=== PATIENT | female | born 1985 | race Caucasian/White ===

== ENCOUNTER 2017-11-24 15:29 | Emergency (ER) | payer SELFPAY ==
[~2017-11-24] VITALS: Ht 157.5 cm; Wt 143.0 kg
[~2017-11-24 15:29] MED LIST: PROC25R PR; Z.0.NO CURRENT MEDS
[2017-11-24 15:36] VITALS: BP 126/61; PULSE 98; RESP 18; TEMP 97.6; O2SAT 96
[2017-11-24] MEDS ORDERED: SODIUM CHLOR 0.9% 250 ML INJ 250 ML IV ONE (15:45)
--- NOTE | 2017-11-24 16:31 | PD ---
HPI Chief Complaint: Bleeding Time Seen by Provider: 15:34 Travel History International Travel<30 days: No Contact w/Intl Traveler<30days: No Traveled to known affect area: No History of Present Illness HPI This is a 32-year-old female who presents to the ER complaining of left thigh bleeding. She has a history of varicose veins and was scratching her thigh this afternoon and started bleeding she denies any trauma to the leg or any part of the body, denies any dizziness or lightheadedness, no headache or blurred vision. She is not on any blood thinners and denies any bleeding anywhere else. PFSH Past Medical History Asthma: Yes Headaches: Yes (MIGRAINE) Immunizations Current: Yes Migraines: Yes Thyroid Disease: Yes ?: Unknown LMP: UNKNOWN-IRREGULAR PER PT Past Surgical History Other Surgery: Yes (1 ADENOID REMOVED PER PT) Social History Alcohol Use: No Tobacco Use: No Substance Use: No Allergies-Medications (Allergen,Severity, Reaction): Coded Allergies: No Known Allergies (Verified Adverse Reaction, Unknown, 11/24/17) Reported Meds & Prescriptions Reported Meds & Active Scripts Active No Active Prescriptions or Reported Medications Review of Systems Except as stated in HPI: all other systems reviewed are Neg Physical Exam Narrative GENERAL: Alert oriented 3 no acute distress. SKIN: Focused skin assessment warm/dry. HEAD: Atraumatic. Normocephalic. EYES: Pupils equal and round. No scleral icterus. No injection or drainage. ENT: No nasal bleeding or discharge. Mucous membranes pink and moist. NECK: Trachea midline. No JVD. CARDIOVASCULAR: Regular rate and rhythm. No murmur appreciated. RESPIRATORY: No accessory muscle use. Clear to auscultation. Breath sounds equal bilaterally. GASTROINTESTINAL: Abdomen soft, non-tender, nondistended. Hepatic and splenic margins not palpable. MUSCULOSKELETAL: Left thigh varicose veins dressing was removed and there is no bleeding. No obvious deformities. No clubbing. No cyanosis. No edema. NEUROLOGICAL: Awake and alert. No obvious cranial nerve deficits. Motor grossly within normal limits. Normal speech. PSYCHIATRIC: Appropriate mood and affect; insight and judgment normal. Data Data Last Documented VS Vital Signs Date Time Temp Pulse Resp B/P (MAP) Pulse Ox O2 Delivery O2 Flow Rate FiO2 11/24/17 15:40 18 11/24/17 15:36 97.6 98 126/61 (82) 96 Orders Orders Sodium Chlor 0.9% 250 Ml Inj (Ns 250 Ml (11/24/17 15:45) MDM Medical Decision Making Medical Screen Exam Complete: Yes Emergency Medical Condition: Yes Differential Diagnosis Varicose vein rupture, laceration. Narrative Course This is a 32-year-old female presents to the ER complaining of bleeding from the left thigh. On examination there was dressing on the left side was removed and hemostasis was obtained with no need for stitches or any other procedures. The wound was examined without dressing and there is no bleeding. Patient is stable to be discharged home to follow-up with primary care. Diagnosis Primary Impression: Bleeding from varicose vein Additional Instructions: Return to ER if symptoms change or do not improve. Scripts No Active Prescriptions or Reported Meds Disposition: 01 DISCHARGE HOME Condition: Stable Christian Berg MD Nov 24, 2017 16:31
[2017-11-24 17:15] VITALS: BP 131/78
== END 2017-11-24 17:22 | disposition home or self-care (01) ==
LOC: PHED 15:29
DX: I83.892 Varicose veins of left lower extremity with other complications (principal); R58 Hemorrhage, not elsewhere classified
CPT/HCPCS: 96360; 99284; J7050

== ENCOUNTER 2018-01-22 08:49 | Inpatient (IN) | payer SELFPAY ==
[2018-01-22] VITALS (29 sets, daily range): BP systolic 87–138; BP diastolic 36–67; PULSE 89–138; RESP 22–41; TEMP 98.5–105.4; O2SAT 93–100
[~2018-01-22] VITALS: Ht 157.5 cm; Wt 167.7 kg
--- NOTE | 2018-01-22 09:00 | PD ---
HPI Chief Complaint: Respiratory Symptoms Time Seen by Provider: 09:00 Travel History International Travel<30 days: No Contact w/Intl Traveler<30days: No Traveled to known affect area: No History of Present Illness HPI 32-year-old female came to the emergency room with history of fever, cough, multiple skin lesions and left leg redness for past 24-48 hours. Patient came in saying that she has history of staph infection and started getting multiple skin eruptions for past 3-4 days. The one on her left legs seem to be bothering the most. She also noticed some on her right foot. Last night she started getting some fever and chills. She has been coughing as well. In triage her vital signs were suggestive of tachycardia and a temperature of 100.8. No history of nausea or vomiting. Patient has had sepsis in the past. She has borderline diabetes. [facility] Past Medical History Narrative Medical List of her past medical, surgical, social and family history reviewed from the nursing note. Asthma: Yes Diabetes: Yes (BORDERLINE) Headaches: Yes (MIGRAINE) Respiratory: Yes (ASTHMA) Immunizations Current: Yes Migraines: Yes Thyroid Disease: Yes ?: Not Past Surgical History Other Surgery: Yes (1 ADENOID REMOVED PER PT) Social History Alcohol Use: No Tobacco Use: No Substance Use: No Allergies-Medications (Allergen,Severity, Reaction): Coded Allergies: No Known Allergies (Verified Adverse Reaction, Unknown, 01/22/18) Comments List of her allergies reviewed from the nursing note. Reported Meds & Prescriptions Reported Meds & Active Scripts Active No Active Prescriptions or Reported Medications Narrative Medication List of her home medications reviewed from the nursing note. Review of Systems Except as stated in HPI: all other systems reviewed are Neg General / Constitutional: Positive: Fever Respiratory: Positive: Cough, Shortness of Breath Skin: Positive Rash Physical Exam Narrative GENERAL: Awake, alert, moderate distress, morbidly obese SKIN: Focused skin assessment warm/dry. Multiple honey crusted lesions with surrounding erythema all over her body. The largest one measures an inch diameter. Patient also has redness of her left leg extending up to the distal aspect of her knee. This feels warm to touch. HEAD: Atraumatic. Normocephalic. EYES: Pupils equal and round. No scleral icterus. No injection or drainage. ENT: No nasal bleeding or discharge. Mucous membranes pink and moist. NECK: Trachea midline. No JVD. CARDIOVASCULAR: Regular rate and rhythm. No murmur appreciated. RESPIRATORY: No accessory muscle use. Clear to auscultation. Breath sounds equal bilaterally. GASTROINTESTINAL: Abdomen soft, non-tender, nondistended. Hepatic and splenic margins not palpable. MUSCULOSKELETAL: No obvious deformities. No clubbing. No cyanosis. No edema. NEUROLOGICAL: Awake and alert. No obvious cranial nerve deficits. Motor grossly within normal limits. Normal speech. PSYCHIATRIC: Appropriate mood and affect; insight and judgment normal. Data Data Last Documented VS Orders Orders Sepsis Workup Initiated (01/22/18 ) Complete Blood Count With Diff (01/22/18 09:11) Comprehensive Metabolic Panel (01/22/18 09:11) Lactic Acid Sepsis Protocol (01/22/18 09:11) Urinalysis - C+S If Indicated (01/22/18 09:11) Influenzae A/B Antigen (01/22/18 09:11) Blood Culture (01/22/18 09:11) Chest, Single Ap (01/22/18 09:11) Blood Glucose (01/22/18 09:11) Ecg Monitoring (01/22/18 09:11) Iv Access Insert/Monitor (01/22/18 09:11) Oximetry (01/22/18 09:11) Oxygen Administration (01/22/18 09:11) Piperacil-Tazo 4.5 Gm Premix (Zosyn 4.5 (01/22/18 09:11) Vancomycin Inj (Vancomycin Inj) (01/22/18 09:11) Sodium Chlor 0.9% 1000 Ml Inj (Ns 1000 M (01/22/18 09:15) Sodium Chlor 0.9% 1000 Ml Inj (Ns 1000 M (01/22/18 09:15) Albuterol-Ipratropium Neb (Duoneb Neb) (01/22/18 10:00) Acetaminophen (Tylenol) (01/22/18 10:00) Electrocardiogram (01/22/18 09:08) Admit Order (Ed Use Only) (01/22/18 10:57) Labs Laboratory Tests Test 01/22/18 09:30 White Blood Count 19.3 TH/MM3 Red Blood Count 4.06 MIL/MM3 Hemoglobin 11.4 GM/DL Hematocrit 34.8 % Mean Corpuscular Volume 85.8 FL Mean Corpuscular Hemoglobin 28.1 PG Mean Corpuscular Hemoglobin Concent 32.8 % Red Cell Distribution Width 13.7 % Platelet Count 254 TH/MM3 Mean Platelet Volume 8.1 FL Neutrophils (%) (Auto) 90.7 % Lymphocytes (%) (Auto) 5.2 % Monocytes (%) (Auto) 2.2 % Eosinophils (%) (Auto) 0.2 % Basophils (%) (Auto) 1.7 % Neutrophils # (Auto) 17.6 TH/MM3 Lymphocytes # (Auto) 1.0 TH/MM3 Monocytes # (Auto) 0.4 TH/MM3 Eosinophils # (Auto) 0.0 TH/MM3 Basophils # (Auto) 0.3 TH/MM3 CBC Comment AUTO DIFF Differential Total Cells Counted 100 Neutrophils % (Manual) 70 % Band Neutrophils % 23 % Lymphocytes % 2 % Monocytes % 2 % Neutrophils # (Manual) 18.5 TH/MM3 Metamyelocytes 3 % Nucleated Red Blood Cells 1 /100 WBC Differential Comment FINAL DIFF MANUAL Toxic Granulation 1+ Platelet Estimate NORMAL Platelet Morphology Comment NORMAL Blood Urea Nitrogen 15 MG/DL Creatinine 1.40 MG/DL Random Glucose 360 MG/DL Total Protein 8.5 GM/DL Albumin 2.9 GM/DL Calcium Level 9.3 MG/DL Alkaline Phosphatase 79 U/L Aspartate Amino Transf (AST/SGOT) 47 U/L Alanine Aminotransferase (ALT/SGPT) 44 U/L Total Bilirubin 1.2 MG/DL Sodium Level 134 MEQ/L Potassium Level 4.0 MEQ/L Chloride Level 97 MEQ/L Carbon Dioxide Level 26.1 MEQ/L Anion Gap 11 MEQ/L Estimat Glomerular Filtration Rate 44 ML/MIN Lactic Acid Level 3.0 mmol/L [facility] Medical Decision Making Medical Screen Exam Complete: Yes Emergency Medical Condition: Yes Medical Record Reviewed: Yes Interpretation(s) Twelve-lead EKG was reviewed by me. Normal sinus rhythm, normal axis, tachycardia, nonspecific ST-T wave changes. Heart rate of 130 bpm Differential Diagnosis Sepsis, pneumonia, cellulitis, disseminated staphylococcal skin infection Narrative Course 11:03 AM patient was given IV antibiotic as per sepsis protocol from the moment she got to the emergency room. I had ordered 2 L of IV fluid bolus and p.o. Tylenol. Patient has remained persistently tachycardic. She was given 2 DuoNeb treatments for her respiratory distress and cough. The nurse just did a rectal temperature and I was told it was 105. I have asked for ice packs in her groin and axilla. I discussed the case with the hospitalist and patient has been admitted. I recommended intensive care unit. Patient is getting an indwelling Ta catheter to measure urine output. I will order another liter of IV fluid bolus as well. Patient continues to be awake and answering questions appropriately with clear mental status. Critical Care Narrative Aggregate critical care time was 45 minutes. Time to perform other separately billable procedures was not included in the critical care time. My time did not include minutes spent treating any other patients simultaneously or on activities that did not directly contribute to the patient's treatment. The services I provided to this patient were to treat and/or prevent clinically significant deterioration that could result in: Sepsis, sepsis protocol I provided critical care services requiring my management, as noted below: Chart data review, documentation time, medication orders and management, vital sign assessments/reviewing monitor data, ordering and reviewing lab tests, ordering and interpreting/reviewing x-rays and diagnostic studies, care of the patient and discussion of the patient with the admitting physicians. Procedures EKG Prior to Arrival: No Diagnosis Primary Impression: Sepsis Qualified Codes: A41.9 - Sepsis, unspecified organism Additional Impressions: Cellulitis Qualified Codes: L03.116 - Cellulitis of left lower limb Hyperglycemia Disseminated staphylococcal skin infection Bandemia Morbid obesity Admitting Information Admitting Physician Requests: Admit Scripts No Active Prescriptions or Reported Meds Sebas Smith MD January 22, 2018 09:00
[2018-01-22] MEDS ORDERED: VANCOMYCIN INJ 1,000 MG in SODIUM CHLOR 0.9% 250 ML INJ 250 ML IV STA (09:11)
[2018-01-22] MEDS ORDERED: PIPERACIL-TAZO 4.5 GM PREMIX 100 ML IV STA (09:11)
[2018-01-22] MEDS ORDERED: SODIUM CHLOR 0.9% 1000 ML INJ 1,000 ML IV ONE ×3 (09:15→11:15)
--- NOTE | 2018-01-22 09:31 | RADRPT ---
EXAM DATE/TIME: 01/22/2018 09:14 [place] COMPARISON: No previous studies available for comparison. INDICATIONS : Short of breath, cough, chest pain MEDICAL HISTORY : None. SURGICAL HISTORY : None. ENCOUNTER: Initial ACUITY: 4 - 6 days PAIN SCORE: 3/10 LOCATION: Bilateral chest FINDINGS: Portable AP view of the chest demonstrates cardiac silhouette size at the upper limits for normal. EK G lines overlie the patient. There is mild hazy increased opacity overlying the lower lung zones that is felt to be related to overlying increased soft tissue. No definite effusion, consolidation, or pn eumothorax identified. Bones and soft tissues demonstrate no acute finding. CONCLUSION: Examination quality less than optimal secondary to patient body habitus. Given the technique, no acut e finding is seen. Thom Ghotra MD on January 22, 2018 at 9:28 Board Certified Radiologist. This report was verified electronically.
[2018-01-22 09:58] LABS: AUTOMATED NEUTROPHIL # 17.6 TH/MM3 (1.8-7.7); BASOPHIL # 0.3 TH/MM3 (0-0.2); BASOPHIL % 1.7 % (0.0-2.0); EOSINOPHIL % 0.2 % (0.0-4.0); HEMATOCRIT 34.8 % (35.0-46.0); HEMOGLOBIN 11.4 GM/DL (11.6-15.3); LYMPH % 5.2 % (9.0-44.0); MEAN CELL VOLUME 85.8 FL (80.0-100.0); MEAN CORPUSCULAR HEMOGLOBIN 28.1 PG (27.0-34.0); MEAN CORPUSCULAR HGB CONC 32.8 % (32.0-36.0); MEAN PLATELET VOLUME 8.1 FL (7.0-11.0); MONO % 2.2 % (0.0-8.0); MONOCYTE # 0.4 TH/MM3 (0-0.9); NEUT % 90.7 % (16.0-70.0); PLATELET COUNT 254 TH/MM3 (150-450); RED BLOOD COUNT 4.06 MIL/MM3 (4.00-5.30); RED CELL DISTRIBUTION WIDTH 13.7 % (11.6-17.2); WHITE BLOOD COUNT 19.3 TH/MM3 (4.0-11.0)
[2018-01-22] MEDS: RESP: ALBUTEROL 2.5 MG/IPRATROPIUM 0.5 MG NEB (SCH) INH (09:59)
[2018-01-22] MEDS ORDERED: ACETAMINOPHEN 325 MG TAB PO ONE (10:00)
[2018-01-22 10:08] LABS: CHLORIDE 97 MEQ/L (98-107); SODIUM (NA) 134 MEQ/L (136-145)
[2018-01-22 10:11] LABS: CALCIUM 9.3 MG/DL (8.5-10.1)
[2018-01-22 10:12] LABS: ALBUMIN 2.9 GM/DL (3.4-5.0); BICARBONATE 26.1 MEQ/L (21.0-32.0); BLOOD UREA NITROGEN 15 MG/DL (7-18); GLUCOSE,RANDOM 360 MG/DL (74-106)
[2018-01-22 10:14] LABS: GLOMERULAR FILTRATION RATE 44 ML/MIN (>89)
[2018-01-22 10:15] LABS: ALT (GPT) 44 U/L (10-53); AST (GOT) 47 U/L (15-37)
[2018-01-22 10:16] LABS: TOTAL BILIRUBIN ADULT 1.2 MG/DL (0.2-1.0)
[2018-01-22 10:17] LABS: TOTAL PROTEIN 8.5 GM/DL (6.4-8.2)
[2018-01-22 10:18] LABS: ALKALINE PHOSPHATASE 79 U/L (45-117)
[2018-01-22 10:23] LABS: BANDS 23 % (0-6); CORRECTED NUCLEATED RBC 1 /100 WBC (0-0); LYMPHOCYTES 2 % (9-44); METAMYELOCYTES 3 % (0-1); MONOCYTES 2 % (0-8); NEUTROPHIL # MANUAL DIFF 18.5 TH/MM3 (1.8-7.7); NUCLEATED RED BLOOD CELL 1 (0-0); POLYS (SEG NEUTROPHILS) 70 % (16-70)
[2018-01-22 10:24] LABS: TOXIC GRANULATION 1+ (NORMAL)
[2018-01-22] MEDS ORDERED: SODIUM CHLORIDE 0.9% FLUSH 10 ML FLUSH IV FLUSH PRN (11:00)
[2018-01-22] MEDS ORDERED: ONDANSETRON HCL 4 MG/2 ML VIAL IVP PRN (11:00)
[2018-01-22] MEDS ORDERED: MORPHINE SULFATE 4 MG/ML INJ IV PUSH PRN (11:00)
[2018-01-22] MEDS ORDERED: ACETAMINOPHEN 325 MG TAB PO PRN (11:00)
[2018-01-22] MEDS ORDERED: NALOXONE HCL 0.4 MG/ML AMP IV PUSH PRN (11:00)
[2018-01-22] MEDS ORDERED: Vancomycin Consult Pharmacy 1 EA OTHER SCH (11:15)
[2018-01-22] MEDS ORDERED: VANCOMYCIN 1,000 MG/NS 250 ML IV ONE ×4 (11:30→12:45)
[2018-01-22] MEDS: INSULIN ASPART SUPPLEMENTAL SCALE SQ SCH ×3 (12:08→20:54)
[2018-01-22] MEDS: SODIUM CHLOR 0.9% 1000 ML INJ 1,000 ML IV SCH ×3 (12:09→20:37)
[2018-01-22 12:12] LABS: BILIRUBIN, URINE NEG (NEG); BLOOD, URINE NEG (NEG); GLUCOSE,URINE NEG (NEG); KETONE, URINE TRACE mg/dL (NEG); NITRITE,URINE NEG (NEG); PH, URINE 5.5 (5.0-8.5); URINE COLOR YELLOW (YELLW/STRAW); URINE LEUKOCYTE ESTERASE NEG (NEG)
[2018-01-22 12:25] LABS: BACTERIA, URINE OCC /hpf; HYALINE CAST, URINE 0-2 /lpf (RARE); SQUAMOUS EPITHELIAL CELL URINE 0-2 /hpf (0-5); WBC, URINE 0-2 /hpf (0-5)
--- NOTE | 2018-01-22 13:59 | EKG ---
Date Performed: 01/22/2018 Time Performed: 09:08:35 PTAGE: 32 years EKG: SINUS TACHYCARDIA WITH SHORT AK INTERVAL ABNORMAL RHYTHM ECG NO PREVIOUS TRACING DOCTOR: Philip Tripp Interpretating Date/Time 01/22/2018 13:58:29
--- NOTE | 2018-01-22 14:16 | HHI.HP ---
[facility] No Primary Care Physician Admission Diagnosis Sepsis, cellulitis, tachycardia, respiratory distress Diagnoses: Chief Complaint: Shortness of breath, fever, rash Travel History International Travel<30 Days: No Contact w/Intl Traveler <30 Da: No Traveled to Known Affected Are: No History of Present Illness The patient is a 32-year-old female with a past medical history of obstructive sleep apnea and asthma who is presenting to the hospital with shortness of breath and a rash. The patient says her breathing has gotten worse over the past couple of days. She does complain of some chest tightness and constriction with breathing. She says she has a history of childhood asthma. She also says that she has sleep apnea but is not being treated for it secondary to lack of insurance. She said she started to develop fevers on Wednesday. She says she has been dealing with bedbugs recently. She says that she has been scratching her body and has been developing blisters, with the biggest one being on her left foot. She says she has noticed white pus bubbles popping up on areas of her body. She has been tolerating a diet. Her family was at the bedside and her questions were asked. Discussed with nursing. Review of Systems Except as stated in HPI: all other systems reviewed are Neg Past Family Social History Past Medical History Obstructive sleep apnea Childhood asthma Irritable bowel syndrome Bedbug exposure Allergies: Coded Allergies: No Known Allergies (Verified Adverse Reaction, Unknown, 01/22/18) Active Ordered Medications Current Medications Medications (Trade) Dose Ordered Sig/Toni Route Start Time Stop Time Status Last Admin Sodium Chloride 1,000 ml @ 150 mls/hr Q6H40M IV 01/22/18 11:00 01/22/18 12:09 (NS Flush) 2 ml UNSCH PRN IV FLUSH 01/22/18 11:00 (NS Flush) 2 ml BID IV FLUSH 01/22/18 21:00 (Tylenol) 650 mg Q4H PRN PO 01/22/18 11:00 (Zofran Inj) 4 mg Q6H PRN IVP 01/22/18 11:00 (Tylenol) 650 mg Q6H PRN PO 01/22/18 11:00 (Roxicodone) 10 mg Q4H PRN PO 01/22/18 11:00 (Morphine Inj) 4 mg Q3H PRN IV PUSH 01/22/18 11:00 (Roxicodone) 5 mg Q4H PRN PO 01/22/18 11:00 (Narcan Inj) 0.4 mg UNSCH PRN IV PUSH 01/22/18 11:00 (Marisela-Colace) 1 tab BID PO 01/22/18 21:00 Pharmacy Profile Note 0 ml @ 0 mls/hr UNSCH OTHER 01/22/18 11:15 Piperacillin Sod/ Tazobactam Sod 100 ml @ 200 mls/hr Q6H IV 01/22/18 16:00 (NovoLOG SUPPLEMENTAL SCALE) 1 ACHS SLIDING SCALE SQ 01/22/18 12:00 01/22/18 12:08 Vancomycin HCl 2500 mg/Sodium Chloride 525 ml @ 250 mls/hr Q24H IV 01/23/18 13:00 ([facility] Ordered Lab Info) SPECIFIC LAB TO BE DRAWN:VANCO TROUGH DATE... ONCE ONCE .XX 01/25/18 12:45 01/25/18 12:46 Family History CAD Lung cancer Atrial fibrillation Diabetes Social History The patient does not smoke, drink or use illicit substances. Physical Exam Vital Signs Vital Signs Date Time Temp Pulse Resp B/P (MAP) Pulse Ox O2 Delivery O2 Flow Rate FiO2 01/22/18 13:05 102.3 124 41 109/40 (63) 99 01/22/18 12:52 113/42 (65) 01/22/18 12:48 01/22/18 12:00 123 28 134/47 (76) 94 Room Air 01/22/18 11:01 105.4 132 30 123/47 (72) 95 Room Air 01/22/18 10:30 134 28 113/47 (69) 97 Room Air 01/22/18 09:59 30 97 Room Air 01/22/18 09:59 97 Room Air 01/22/18 09:54 104.1 134 30 136/55 (82) 97 Room Air 01/22/18 09:00 97 Room Air 01/22/18 08:50 100.7 138 22 134/58 (83) 94 Physical Exam GENERAL: Appears uncomfortable. SKIN: Multiple honey crusted lesions with surrounding erythema all over her body. The largest one measures an inch diameter. Patient also has redness of her left leg extending up to the distal aspect of her knee. This feels warm to touch. HEAD: Atraumatic. Normocephalic. No temporal or scalp tenderness. EYES: Pupils equal round and reactive. Extraocular motions intact. No scleral icterus. No injection or drainage. ENT: Nose without bleeding, purulent drainage or septal hematoma. Throat without erythema, tonsillar hypertrophy or exudate. Uvula midline. Airway patent. NECK: Trachea midline. No JVD or lymphadenopathy. Supple, nontender, no meningeal signs. CARDIOVASCULAR: Tachycardic without murmurs, gallops, or rubs. RESPIRATORY: Rapid respirations. Breath sounds equal bilaterally. No wheezes, rales, or rhonchi. GASTROINTESTINAL: Abdomen soft, mildly tender, nondistended. No hepato- splenomegaly, or palpable masses. No guarding. MUSCULOSKELETAL: Extremities without clubbing, cyanosis, or edema. Left lower extremity tenderness over area of cellulitis. NEUROLOGICAL: Awake and alert. Cranial nerves II through XII intact. Motor and sensory grossly within normal limits. Five out of 5 muscle strength in all muscle groups. Normal speech. PSYCH: Calm. Laboratory Laboratory Tests Test 01/22/18 09:30 01/22/18 11:30 01/22/18 12:15 White Blood Count 19.3 Red Blood Count 4.06 Hemoglobin 11.4 Hematocrit 34.8 Mean Corpuscular Volume 85.8 Mean Corpuscular Hemoglobin 28.1 Mean Corpuscular Hemoglobin Concent 32.8 Red Cell Distribution Width 13.7 Platelet Count 254 Mean Platelet Volume 8.1 Neutrophils (%) (Auto) 90.7 Lymphocytes (%) (Auto) 5.2 Monocytes (%) (Auto) 2.2 Eosinophils (%) (Auto) 0.2 Basophils (%) (Auto) 1.7 Neutrophils # (Auto) 17.6 Lymphocytes # (Auto) 1.0 Monocytes # (Auto) 0.4 Eosinophils # (Auto) 0.0 Basophils # (Auto) 0.3 CBC Comment AUTO DIFF Differential Total Cells Counted 100 Neutrophils % (Manual) 70 Band Neutrophils % 23 Lymphocytes % 2 Monocytes % 2 Neutrophils # (Manual) 18.5 Metamyelocytes 3 Nucleated Red Blood Cells 1 Differential Comment FINAL DIFF MANUAL Toxic Granulation 1+ Platelet Estimate NORMAL Platelet Morphology Comment NORMAL Blood Urea Nitrogen 15 Creatinine 1.40 Random Glucose 360 Total Protein 8.5 Albumin 2.9 Calcium Level 9.3 Alkaline Phosphatase 79 Aspartate Amino Transf (AST/SGOT) 47 Alanine Aminotransferase (ALT/SGPT) 44 Total Bilirubin 1.2 Sodium Level 134 Potassium Level 4.0 Chloride Level 97 Carbon Dioxide Level 26.1 Anion Gap 11 Estimat Glomerular Filtration Rate 44 Lactic Acid Level 3.0 3.0 Urine Collection Type CATH Urine Color YELLOW Urine Turbidity CLEAR Urine pH 5.5 Urine Specific [place] GREATER/EQUAL 1.030 Urine Protein 100 Urine Glucose (UA) NEG Urine Ketones TRACE Urine Occult Blood NEG Urine Nitrite NEG Urine Bilirubin NEG Urine Urobilinogen 0.2 Urine Leukocyte Esterase NEG Urine WBC 0-2 Urine Squamous Epithelial Cells 0-2 Urine Bacteria OCC Urine Hyaline Casts 0-2 Microscopic Urinalysis Comment CULTURE INDICATED Total Creatine Kinase 63 Date/Time Source Procedure Growth Status 01/22/18 09:35 Blood Peripheral Aerobic Blood Culture Pending Received 01/22/18 09:35 Blood Peripheral Anaerobic Blood Culture Pending Received 01/22/18 09:35 Nasal Aspirate Influenza Types A,B Antigen (JEMIMA) - Final NEGATIVE FOR FLU A AND B ANTIGEN.... Complete 01/22/18 11:30 Urine Catheterized Urine Urine Culture Pending Received Result Diagram: 01/22/1892901/22/18929 Imaging Last Impressions Chest X-Ray 01/22/18910 Signed Impressions: Service Date/Time: Monday, January 22, 2018 09:14 - CONCLUSION: Examination quality less than optimal secondary to patient body habitus. Given the technique, no acute finding is seen. MD Bessie Noblei VTE Risk Assessment Caprini VTE Risk Assessment: Mod/High Risk (score >= 2) Caprini Risk Assessment Model Point Value = 1 Point Value = 2 Point Value = 3 Point Value = 5 Age 41-60 Minor surgery BMI > 25 kg/m2 Swollen legs Varicose veins or History of unexplained or recurrent spontaneous Oral contraceptives or hormone replacement Sepsis (< 1 month) Serious lung disease, including pneumonia (< 1 month) Abnormal pulmonary function Acute myocardial infarction Congestive heart failure (< 1 month) History of inflammatory bowel disease Medical patient at bed rest Age 61-74 Arthroscopic surgery Major open surgery (> 45 min) Laparoscopic surgery (> 45 min) Malignancy Confined to bed (> 72 hours) Immobilizing plaster cast Central venous access Age >= 75 History of VTE Family history of VTE Factor V Leiden Prothrombin [id number] Lupus anticoagulant Anticardiolipin antibodies Elevated serum homocysteine Heparin-induced thrombocytopenia Other congenital or acquired thrombophilia Stroke (< 1 month) Elective arthroplasty Hip, pelvis, or leg fracture Acute spinal cord injury (< 1 month) Prophylaxis Regimen Total Risk Factor Score Risk Level Prophylaxis Regimen 0-1 Low Early ambulation 2 Moderate Order ONE of the following: *Sequential Compression Device (SCD) *Heparin 5000 units SQ BID 3-4 Higher Order ONE of the following medications: *Heparin 5000 units SQ TID *Enoxaparin/Lovenox 40 mg SQ daily (WT < 150 kg, CrCl > 30 mL/min) *Enoxaparin/Lovenox 30 mg SQ daily (WT < 150 kg, CrCl > 10-29 mL/min) *Enoxaparin/Lovenox 30 mg SQ BID (WT < 150 kg, CrCl > 30 mL/min) AND/OR *Sequential Compression Device (SCD) 5 or more Highest Order ONE of the following medications: *Heparin 5000 units SQ TID (Preferred with Epidurals) *Enoxaparin/Lovenox 40 mg SQ daily (WT < 150 kg, CrCl > 30 mL/min) *Enoxaparin/Lovenox 30 mg SQ daily (WT < 150 kg, CrCl > 10-29 mL/min) *Enoxaparin/Lovenox 30 mg SQ BID (WT < 150 kg, CrCl > 30 mL/min) AND *Sequential Compression Device (SCD) Assessment and Plan Assessment and Plan Severe sepsis The patient presented with leukocytosis and fever up to 105.4. She has cellulitis of the left lower extremity and acute respiratory failure. Her lactic acid level is at 3. - Continue IV vancomycin and Zosyn. - Continue aggressive IV fluids. - Infectious disease consult has been requested. - Follow culture data. Acute respiratory failure The patient is tachypneic. Chest x-ray without acute process. Has a history of untreated JAS and childhood asthma. - check an ABG. - BiPAP. - consult pulmonology. - IV Solumedrol. - standing nebs. - incentive spirometry. Cellulitis LLE is warm to the touch. - follow wound culture. - treatment as above. Hyperglycemia Nursing reports a history of DM. - check an A1c. - insulin sliding scale. Renal insufficiency May be pre-renal. - IVFs. - follow BMP and avoid nephrotoxins. PPx: Heparin Code Status Full Discussed Condition With Pt, pt's family, nurse Physician Certification 2 Midnight Certification Type: Admission for Inpatient Services Order for Inpatient Services The services are ordered in accordance with Medicare regulations or non- Medicare payer requirements, as applicable. In the case of services not specified as inpatient-only, they are appropriately provided as inpatient services in accordance with the 2-midnight benchmark. Estimated LOS (days): 3 days is the estimated time the patient will need to remain in the hospital, assuming treatment plan goals are met and no additional complications. Post-Hospital Plan: Home Bang Jimenez DO January 22, 2018 14:16
[2018-01-22] MEDS: RESP: ALBUTEROL 2.5 MG/IPRATROPIUM 0.5 MG NEB (SCH) NEB ×2 (14:37→20:43)
[2018-01-22] MEDS: HEPARIN SODIUM - SQ 10,000 UNITS/ML VIAL SQ SCH ×2 (14:48→21:59)
[2018-01-22] MEDS: methylPREDNISolone SOD SUCC 40 MG/1 ML VIAL IV PUSH SCH ×2 (14:48→21:59)
[2018-01-22] MEDS ORDERED: LORazepam 2 MG/ML VIAL IV PUSH PRN (15:15)
[2018-01-22] MEDS: PIPERACIL-TAZO 4.5 GM PREMIX 100 ML IV SCH ×2 (16:00→22:00)
[2018-01-22] MEDS: ACETAMINOPHEN 325 MG TAB PO PRN (17:00)
--- NOTE | 2018-01-22 19:24 | MB ---
cc: Palma Duran MD, V J MD DATE: 01/22/2018 REASON FOR CONSULTATION: Respiratory insufficiency and asthma. HISTORY OF PRESENT ILLNESS: This is a 32-year-old extremely obese white female with a possible history of obstructive sleep apnea and asthma since childhood who was brought into the emergency room with shortness of breath and some skin lesions. The patient, according to the mother, has been short of breath and over the past few days has been scratching her body and has had some blisters which broke and now formed ulcerations on her legs and feet as well as she has had a few skin lesions on her face and trunk. The patient has been running some fevers but denied any cough. She does have wheezing and shortness of breath with minimal activity. She was thus brought to the emergency room. A chest x-ray was done in the ER which showed low lung volumes but no other active infiltrate. PAST MEDICAL HISTORY: Included history for childhood asthma, irritable bowels and history of sleep apnea, according to the mother. She has had no significant surgeries. ALLERGIES: NONE LISTED. FAMILY HISTORY: Significant for lung cancer, obesity and atrial fibrillation as well as diabetes. MEDICATIONS: 1. Oxycodone 10 mg p.r.n. 2. Piperacillin/tazobactam 3.375 grams q. 6. 3. Vancomycin q 24 hrs 2.5 grams. HABITS: The patient is a nonsmoker, does not drink alcohol. Works as a information security director. REVIEW OF SYSTEMS: The patient is unable to provide any meaningful details. Seems drowsy. She is lying on her back and breathing is shallow. PHYSICAL EXAMINATION: GENERAL: This is a obese, young white female who is awake but slightly lethargic. VITAL SIGNS: Blood pressure 130/70, pulse is 112, respirations 24-28, temperature 102.2. HEENT: Head is normocephalic. Pupils are reactive. Sclerae clear. Tongue is dry. Throat is injected. Nasal mucosa is clear. NECK: Supple. No bruits or thyroid enlargement, no lymphadenopathy. CHEST: Decreased excursions. Occasional expiratory wheezes in the upper lung rachel. No crackles in medial side. HEART: The heart sounds are regular S1 and S2 with no murmur. ABDOMEN: Soft, obese without masses. No organomegaly. EXTREMITIES: Ulcerated areas over the skin with cellulitis in the left leg as well as in the right lower extremity and small reddish lesions on the face, neck and body. The abdomen is obese and nontender with no organomegaly. NEUROLOGIC: The patient is awake, slightly lethargic, does answer questions appropriately. Reflexes 1+ with no gross motor deficits. ASSESSMENT AND PLAN: 1. Sepsis with cellulitis and skin ulcerations of the lower extremities. 2. Obstructive sleep apnea syndrome. 3. Asthma with bronchitis. 4. Hyperglycemia. 5. Extreme obesity PLAN: The patient has been started on antibiotic coverage including Zosyn and vancomycin, which we will continue. Nebulized DuoNeb solution added q.i.d. and p.r.n. The patient will also be placed on Symbicort 160/4.5 mcg 2 puffs twice a day. A CT of the chest to be done without contrast and complete blood count, blood cultures and urine cultures are pending. We will get a pulmonary function study when she is clinically stable. I also advised her mother that a sleep study will be arranged as an outpatient and a BiPAP will be used while in the Intensive Care Unit to maintain her saturations over 92%. The patient was counseled about weight loss and infectious disease consult to be requested for the possibility of bed bug bites and further infectious disease evaluation is pending. Repeat chest x-ray to be done in a.m. I will follow the case with you, Dr. Jimenez. Thank you for this consultation. Palma Duran MD VJD/ , 06:27 PM , 07:23 PM
[2018-01-22] MEDS: SODIUM CHLORIDE 0.9% FLUSH 10 ML FLUSH IV FLUSH SCH (20:38)
[2018-01-22] MEDS: DOCUSATE SODIUM 50 MG/SENNA 8.6 MG TAB PO SCH (20:54)
[2018-01-22] MEDS: BUDESONIDE-FORMOTEROL 160/4.5 MCG INHALER INH SCH (20:54)
[2018-01-23] VITALS (30 sets, daily range): BP systolic 98–153; BP diastolic 47–84; PULSE 72–128; RESP 2–45; TEMP 98.1–101.1; O2SAT 94–100
[2018-01-23] MEDS: PIPERACIL-TAZO 4.5 GM PREMIX 100 ML IV SCH ×2 (04:02→11:08)
[2018-01-23] MEDS: methylPREDNISolone SOD SUCC 40 MG/1 ML VIAL IV PUSH SCH ×3 (06:01→20:13)
[2018-01-23] MEDS: HEPARIN SODIUM - SQ 10,000 UNITS/ML VIAL SQ SCH ×3 (06:02→22:00)
[2018-01-23] MEDS: SODIUM CHLOR 0.9% 1000 ML INJ 1,000 ML IV SCH ×3 (06:03→20:12)
[2018-01-23 06:48] LABS: HEMATOCRIT 30.3 % (35.0-46.0); HEMOGLOBIN 9.9 GM/DL (11.6-15.3); MEAN CELL VOLUME 86.3 FL (80.0-100.0); MEAN CORPUSCULAR HEMOGLOBIN 28.1 PG (27.0-34.0); MEAN CORPUSCULAR HGB CONC 32.6 % (32.0-36.0); MEAN PLATELET VOLUME 8.1 FL (7.0-11.0); PLATELET COUNT 188 TH/MM3 (150-450); RED BLOOD COUNT 3.52 MIL/MM3 (4.00-5.30); RED CELL DISTRIBUTION WIDTH 13.6 % (11.6-17.2); WHITE BLOOD COUNT 13.5 TH/MM3 (4.0-11.0)
[2018-01-23 07:22] LABS: BANDS 20 % (0-6); LYMPHOCYTES 3 % (9-44); MONOCYTES 1 % (0-8); POLYS (SEG NEUTROPHILS) 76 % (16-70)
[2018-01-23 07:23] LABS: TOXIC GRANULATION 1+ (NORMAL)
[2018-01-23 07:25] LABS: ALBUMIN 1.9 GM/DL (3.4-5.0); BICARBONATE 24.4 MEQ/L (21.0-32.0); CALCIUM 7.1 MG/DL (8.5-10.1); TOTAL BILIRUBIN ADULT 0.7 MG/DL (0.2-1.0); TOTAL PROTEIN 6.6 GM/DL (6.4-8.2)
[2018-01-23 07:30] LABS: CALCIUM-PROTEIN CORRECTED 7.4 MG/DL (8.5-10.1)
[2018-01-23] MEDS: RESP: ALBUTEROL 2.5 MG/IPRATROPIUM 0.5 MG NEB (SCH) NEB ×3 (07:47→23:14)
[2018-01-23] MEDS: DOCUSATE SODIUM 50 MG/SENNA 8.6 MG TAB PO SCH ×2 (08:40→20:13)
[2018-01-23] MEDS: INSULIN ASPART SUPPLEMENTAL SCALE SQ SCH ×4 (08:41→20:14)
[2018-01-23] MEDS: BUDESONIDE-FORMOTEROL 160/4.5 MCG INHALER INH SCH ×2 (09:00→22:00)
[2018-01-23] MEDS: SODIUM CHLORIDE 0.9% FLUSH 10 ML FLUSH IV FLUSH SCH ×2 (09:00→20:19)
[2018-01-23] MEDS: VANCOMYCIN INJ 2,500 MG in SODIUM CHLORID 0.9% 500 ML INJ 500 ML IV SCH ×2 (09:26→20:12)
--- NOTE | 2018-01-23 09:36 | PD.CONS ---
History of Present Illness Service ID CONSULT DR RAMOS Consult Requested By DR TAPIA Primary Care Physician No Primary Care Physician Diagnoses: (1) Cellulitis (2) Bandemia History of Present Illness 32 yr old female with morbid obesity. She states Wednesday she started to feel tired , feverish. She has a rash that has been itchy and she states she developed blisters to her feet which she has been scratching a lot. She came in with shortness and breath and these rashes. Her left leg is red and swollen. Her wbc is 19. She is diabetic and thyroid disease however has no access to health care. She did have + fever with chills. She has an issue with bed bugs in her home. Review of Systems Constitutional: DENIES: Fatigue Eyes: DENIES: Eye pain Ears, nose, mouth, throat: DENIES: Nasal discharge Respiratory: DENIES: Hemoptysis Cardiovascular: DENIES: Dyspnea on Exertion Gastrointestinal: DENIES: Constipation Genitourinary: DENIES: Dysmenorrhea Musculoskeletal: DENIES: Stiffness Integumentary: COMPLAINS OF: Pruritus Past Family Social History Allergies: Coded Allergies: No Known Allergies (Verified Adverse Reaction, Unknown, 01/22/18) Past Medical History Past Medical History Obstructive sleep apnea Childhood asthma Irritable bowel syndrome Bedbug exposure Allergies: Coded Allergies: No Known Allergies (Verified Adverse Reaction, Unknown, 01/22/18) Active Ordered Medications Past Surgical History NONE Reported Medications none Active Ordered Medications zosyn/ vancomycin Family History Maternal history of diabetes and obesity Social History None smoker no alcohol use no drug use Physical Exam Vital Signs Vital Signs Date Time Temp Pulse Resp B/P (MAP) Pulse Ox O2 Delivery O2 Flow Rate FiO2 01/23/18 09:00 116 17 109/61 (77) 96 01/23/18 08:00 98.1 106 29 105/64 (78) 97 01/23/18 08:00 105 01/23/18 07:50 99 Nasal Cannula 2.00 01/23/18 07:00 Nasal Cannula 3.00 01/23/18 07:00 110 34 107/54 (71) 98 01/23/18 06:00 101 01/23/18 06:00 100 41 113/47 (69) 98 01/23/18 05:00 96 2 119/61 (80) 98 01/23/18 04:12 99 35 5/6/18 04:00 98.4 98 13 118/61 (80) 98 5/6/18 04:00 72 5//18 03:00 96 25 118/62 (80) 98 5//18 02:00 102 37 117/64 (81) 100 5//18 02:00 96 //18 01:58 98 35 5/6/18 01:00 88 13 113/60 (77) 95 518 00:00 98.4 92 24 113/58 (76) 97 01/23/18 00:00 99 18 23:30 100 35 //18 23:00 98 26 122/67 (85) 99 01/22/18 22:00 99 /02/04 22:00 92 24 105/54 (71) 97 01/22/18 21:02 104 27 114/61 (78) 99 18 21:00 Bi-Pap 40 01/22/18 21:00 98 40 01/22/18 20:43 93 21 01/22/18 20:00 98.5 108 32 135/65 (88) 18 20:00 113 /18 19:00 112 32 138/63 (88) 94 /18 18:00 101 18 18:00 32 110/59 (76) 98 18 18:00 29 01/22/18 17:54 102.0 01/22/18 17:30 High Flow Nasal Cannula 01/22/18 17:08 118 40 110/39 (62) 98 18 16:05 103.1 116 38 95/50 (65) 18 16:00 89 18 15:05 118 40 99/37 (57) 93 /18 14:45 96 40 //18 14:42 116 25 116/52 (73) 100 18 14:39 99 Nasal Cannula 3.00 01/22/18 14:30 99.3 122 41 99 5//18 14:20 122 41 98/65 (76) 100 01/22/18 14:05 124 41 87/36 (53) 97 18 14:00 89 01/22/18 13:05 102.3 124 41 109/40 (63) 99 01/22/18 12:52 113/42 (65) 01/22/18 12:48 01/22/18 12:00 123 28 134/47 (76) 94 Room Air 01/22/18 11:01 105.4 132 30 123/47 (72) 95 Room Air 01/22/18 10:30 134 28 113/47 (69) 97 Room Air 01/22/18 09:59 30 97 Room Air 01/22/18 09:59 97 Room Air 01/22/18 09:54 104.1 134 30 136/55 (82) 97 Room Air Physical Exam GENERAL: This is a obese patient, in no apparent distress. SKIN: Yes rashes healing scabs over hands and feet, ecchymoses or lesions. Cool and dry. HEAD: Atraumatic. Normocephalic. No temporal or scalp tenderness. EYES: Pupils equal round and reactive. Extraocular motions intact. No scleral icterus. No injection or drainage. ENT: Nose without bleeding, purulent drainage or septal hematoma. Throat without erythema, tonsillar hypertrophy or exudate. Uvula midline. Airway patent. NECK: Trachea midline. No JVD or lymphadenopathy. Supple, nontender, no meningeal signs. CARDIOVASCULAR: Regular rate and rhythm without murmurs, gallops, or rubs. RESPIRATORY: Clear to auscultation. Breath sounds equal bilaterally. No wheezes , rales, or rhonchi. GASTROINTESTINAL: Abdomen soft, + tender, nondistended. No hepato-splenomegaly, or palpable masses. No guarding. MUSCULOSKELETAL: Extremities without clubbing, cyanosis, + edema bilateral legs , + left leg redness no open wounds. Rle / foot is tender swollen> No joint tenderness, effusion, or edema noted. No calf tenderness. Negative Homans sign bilaterally. NEUROLOGICAL: Awake and alert. Cranial nerves II through XII intact. Motor and sensory grossly within normal limits. Five out of 4 muscle strength in all muscle groups. Normal speech. Laboratory Laboratory Tests Test 01/22/18 11:30 01/22/18 12:15 01/22/18 14:13 01/22/18 16:50 Urine Collection Type CATH Urine Color YELLOW Urine Turbidity CLEAR Urine pH 5.5 Urine Specific [place] GREATER/EQUAL 1.030 Urine Protein 100 Urine Glucose (UA) NEG Urine Ketones TRACE Urine Occult Blood NEG Urine Nitrite NEG Urine Bilirubin NEG Urine Urobilinogen 0.2 Urine Leukocyte Esterase NEG Urine WBC 0-2 Urine Squamous Epithelial Cells 0-2 Urine Bacteria OCC Urine Hyaline Casts 0-2 Microscopic Urinalysis Comment CULTURE INDICATED Lactic Acid Level 3.0 Total Creatine Kinase 63 110 Blood Gas Puncture Site RT RADIAL Blood Gas Patient Temperature 37.0 Blood Gas HCO3 22 Blood Gas Base Excess -1.5 Blood Gas Oxygen Saturation 96 Arterial Blood pH 7.43 Arterial Blood Partial Pressure CO2 34 Arterial Blood Partial Pressure O2 107 Arterial Blood Oxygen Content 11.5 Arterial Blood Carboxyhemoglobin 2.2 Arterial Blood Methemoglobin 0.8 Blood Gas Hemoglobin 8.4 Oxygen Delivery Device NASAL CANNULA Blood Gas Liter Flow 2 Thyroid Stimulating Hormone 3rd Gen 2.920 Test 01/23/18 06:35 White Blood Count 13.5 Red Blood Count 3.52 Hemoglobin 9.9 Hematocrit 30.3 Mean Corpuscular Volume 86.3 Mean Corpuscular Hemoglobin 28.1 Mean Corpuscular Hemoglobin Concent 32.6 Red Cell Distribution Width 13.6 Platelet Count 188 Mean Platelet Volume 8.1 CBC Comment AUTO DIFF Differential Total Cells Counted 100 Neutrophils % (Manual) 76 Band Neutrophils % 20 Lymphocytes % 3 Monocytes % 1 Neutrophils # (Manual) 13.0 Differential Comment FINAL DIFF MANUAL Toxic Granulation 1+ Platelet Estimate NORMAL Platelet Morphology Comment NORMAL Blood Urea Nitrogen 13 Creatinine 1.00 Random Glucose 336 Total Protein 6.6 Albumin 1.9 Calcium Level 7.1 Alkaline Phosphatase 47 Aspartate Amino Transf (AST/SGOT) 27 Alanine Aminotransferase (ALT/SGPT) 30 Total Bilirubin 0.7 Sodium Level 141 Potassium Level 3.9 Chloride Level 110 Carbon Dioxide Level 24.4 Anion Gap 7 Estimat Glomerular Filtration Rate 65 Protein Corrected Calcium 7.4 Date/Time Source Procedure Growth Status 01/22/18 09:35 Blood Peripheral Aerobic Blood Culture Pending Received 01/22/18 09:35 Blood Peripheral Anaerobic Blood Culture Pending Received 01/22/18 09:35 Nasal Aspirate Influenza Types A,B Antigen (JEMIMA) - Final NEGATIVE FOR FLU A AND B ANTIGEN.... Complete 01/22/18 13:53 Urine Clean Catch Legionella Antigen Pending Received 01/22/18 13:53 Urine Clean Catch Streptococcus pneumoniae Antigen (M Pending Received 01/22/18 14:14 Wound Leg Gram Stain Pending Received 01/22/18 14:14 Wound Leg Wound Culture Pending Received Result Diagram: 01/23/18 0635 01/23/18 0635 Assessment and Plan Problem List: (1) Cellulitis ICD Codes: L03.90 - Cellulitis, unspecified Status: Acute Plan: plan to start ancef/ vancomycin stop zosyn will follow cultures and fu Problem Qualifiers (1) Cellulitis: Qualified Codes: L03.116 - Cellulitis of left lower limb Emma Moreno January 23, 2018 09:36
[2018-01-23 13:40] LABS: HEMOGLOBIN A1C 7.7 % (4.3-6.0)
[2018-01-23] MEDS: ceFAZolin 2 GM/DEX PREMIX 50 ML IV SCH ×2 (13:42→20:12)
--- NOTE | 2018-01-23 15:03 | HHI.PR ---
Subjective Remarks The patient was resting in bed comfortably. She said she felt better. She says she feels every part of her is heavy. Discussed with nursing. Objective Vitals Vital Signs Date Time Temp Pulse Resp B/P (MAP) Pulse Ox O2 Delivery O2 Flow Rate FiO2 01/23/18 14:25 97 Nasal Cannula 2.00 01/23/18 14:00 101.1 128 45 113/54 (73) 01/23/18 14:00 101 01/23/18 13:00 116 27 119/52 (74) 95 01/23/18 12:00 98.7 106 26 98/55 (69) 94 01/23/18 12:00 98 01/23/18 11:00 118 24 112/60 (77) 95 01/23/18 10:00 89 01/23/18 10:00 118 41 113/60 (77) 94 01/23/18 09:20 96 21 01/23/18 09:00 116 17 109/61 (77) 96 01/23/18 09:00 116 17 109/61 (77) 96 01/23/18 08:00 98.1 106 29 105/64 (78) 97 01/23/18 08:00 105 01/23/18 07:50 99 Nasal Cannula 2.00 01/23/18 07:00 Nasal Cannula 3.00 01/23/18 07:00 110 34 107/54 (71) 98 01/23/18 06:00 101 01/23/18 06:00 100 41 113/47 (69) 98 01/23/18 05:00 96 2 119/61 (80) 98 01/23/18 04:12 99 35 01/23/18 04:00 98.4 98 13 118/61 (80) 98 01/23/18 04:00 72 01/23/18 03:00 96 25 118/62 (80) 98 01/23/18 02:00 102 37 117/64 (81) 100 01/23/18 02:00 96 01/23/18 01:58 98 35 01/23/18 01:00 88 13 113/60 (77) 95 01/23/18 00:00 98.4 92 24 113/58 (76) 97 01/23/18 00:00 99 01/22/18 23:30 100 35 01/22/18 23:00 98 26 122/67 (85) 99 01/22/18 22:00 99 01/22/18 22:00 92 24 105/54 (71) 97 01/22/18 21:02 104 27 114/61 (78) 99 01/22/18 21:00 Bi-Pap 40 01/22/18 21:00 98 40 01/22/18 20:43 93 21 01/22/18 20:00 98.5 108 32 135/65 (88) 01/22/18 20:00 113 01/22/18 19:00 112 32 138/63 (88) 94 01/22/18 18:00 101 01/22/18 18:00 32 110/59 (76) 98 01/22/18 18:00 29 01/22/18 17:54 102.0 01/22/18 17:30 High Flow Nasal Cannula 01/22/18 17:08 118 40 110/39 (62) 98 01/22/18 16:05 103.1 116 38 95/50 (65) 01/22/18 16:00 89 01/22/18 15:05 118 40 99/37 (57) 93 I/O 01/22/18 01/22/18 01/22/18 01/23/18 01/23/18 01/23/18 06:59 14:59 22:59 06:59 14:59 22:59 Intake Total 3350 ml 990 ml 3428 ml Output Total 1300 ml 1300 ml Balance 3350 ml -310 ml 2128 ml Intake Oral 240 ml 960 ml IV Total 3350 ml 750 ml 2468 ml Output Urine Total 1300 ml 1300 ml # Bowel Movements 0 2 Result Diagram: 01/23/18 0635 01/23/18 0635 Imaging Last Impressions Chest X-Ray 01/22/18 0911 Signed Impressions: Service Date/Time: Monday, January 22, 2018 09:14 - CONCLUSION: Examination quality less than optimal secondary to patient body habitus. Given the technique, no acute finding is seen. Thom Ghotra MD Objective Remarks GENERAL: No distress. SKIN: Multiple honey crusted lesions with surrounding erythema all over her body. The largest one measures an inch diameter. Patient also has redness of her left leg extending up to the distal aspect of her knee. This feels warm to touch. HEAD: Atraumatic. Normocephalic. No temporal or scalp tenderness. EYES: Pupils equal round and reactive. Extraocular motions intact. No scleral icterus. No injection or drainage. ENT: Nose without bleeding, purulent drainage or septal hematoma. Throat without erythema, tonsillar hypertrophy or exudate. Uvula midline. Airway patent. NECK: Trachea midline. No JVD or lymphadenopathy. Supple, nontender, no meningeal signs. CARDIOVASCULAR: Tachycardic without murmurs, gallops, or rubs. RESPIRATORY: Breath sounds equal bilaterally. No wheezes, rales, or rhonchi. GASTROINTESTINAL: Abdomen soft, mildly tender, nondistended. No hepato- splenomegaly, or palpable masses. No guarding. MUSCULOSKELETAL: Extremities without clubbing, cyanosis, or edema. Left lower extremity tenderness over area of cellulitis. NEUROLOGICAL: Awake and alert. Cranial nerves II through XII intact. Motor and sensory grossly within normal limits. Five out of 5 muscle strength in all muscle groups. Normal speech. PSYCH: Calm. A/P Assessment and Plan Severe sepsis/ Cellulitis The patient presented with leukocytosis and fever up to 105.4. She has cellulitis of the left lower extremity and acute respiratory failure. Her lactic acid level is at 3. Infectious disease consult appreciated. - Continue IV vancomycin and cefazolin per ID. - Continue aggressive IV fluids. - Follow culture data. Acute respiratory failure The patient is tachypneic. Chest x-ray without acute process. Has a history of untreated JAS and childhood asthma. Pulmonology consult appreciated. - BiPAP as needed. - follow up with pulmonology. - IV Solumedrol. - standing nebs. - incentive spirometry. Hyperglycemia Nursing reports a history of DM. - check an A1c. - insulin sliding scale. - Levemir. - wean steroids as tolerated. Renal insufficiency May be pre-renal. - IVFs. - follow BMP and avoid nephrotoxins. Improving. PPx: Heparin Bang Jimenez DO January 23, 2018 15:03
[2018-01-23] MEDS ORDERED: CALCIUM GLUCONATE INJ 1 GM in SODIUM CHLORIDE 0.9% INJ 100 ML IV ONE (16:00)
[2018-01-23] MEDS: INSULIN ASPART 1,000 UNITS/10 ML VIAL SQ SCH (17:19)
--- NOTE | 2018-01-23 18:01 | HHI.PR ---
Subjective Remarks Better today. Has a fever. Used BIPAP last nite. Skin rash is fading Objective Vital Signs Date Time Temp Pulse Resp B/P (MAP) Pulse Ox O2 Delivery O2 Flow Rate FiO2 01/23/18 17:00 112 35 153/84 (107) 95 01/23/18 16:00 116 32 117/54 (75) 97 01/23/18 16:00 106 01/23/18 15:00 100.1 120 29 130/67 (88) 96 01/23/18 14:25 97 Nasal Cannula 2.00 01/23/18 14:00 101.1 128 45 113/54 (73) 01/23/18 14:00 101 01/23/18 13:00 116 27 119/52 (74) 95 01/23/18 12:00 98.7 106 26 98/55 (69) 94 01/23/18 12:00 98 01/23/18 11:00 118 24 112/60 (77) 95 01/23/18 10:00 89 01/23/18 10:00 118 41 113/60 (77) 94 01/23/18 09:20 96 21 01/23/18 09:00 116 17 109/61 (77) 96 01/23/18 09:00 116 17 109/61 (77) 96 01/23/18 08:00 98.1 106 29 105/64 (78) 97 01/23/18 08:00 105 01/23/18 07:50 99 Nasal Cannula 2.00 01/23/18 07:00 Nasal Cannula 3.00 01/23/18 07:00 110 34 107/54 (71) 98 01/23/18 06:00 101 01/23/18 06:00 100 41 113/47 (69) 98 01/23/18 05:00 96 2 119/61 (80) 98 01/23/18 04:12 99 35 01/23/18 04:00 98.4 98 13 118/61 (80) 98 01/23/18 04:00 72 01/23/18 03:00 96 25 118/62 (80) 98 01/23/18 02:00 102 37 117/64 (81) 100 01/23/18 02:00 96 01/23/18 01:58 98 35 01/23/18 01:00 88 13 113/60 (77) 95 01/23/18 00:00 98.4 92 24 113/58 (76) 97 01/23/18 00:00 99 01/22/18 23:30 100 35 01/22/18 23:00 98 26 122/67 (85) 99 01/22/18 22:00 99 01/22/18 22:00 92 24 105/54 (71) 97 01/22/18 21:02 104 27 114/61 (78) 99 01/22/18 21:00 Bi-Pap 40 01/22/18 21:00 98 40 01/22/18 20:43 93 21 01/22/18 20:00 98.5 108 32 135/65 (88) 01/22/18 20:00 113 01/22/18 19:00 112 32 138/63 (88) 94 01/22/18 18:00 101 01/22/18 18:00 32 110/59 (76) 98 01/22/18 18:00 29 I/O 01/22/18 01/22/18 01/22/18 01/23/18 01/23/18 01/23/18 07:00 15:00 23:00 07:00 15:00 23:00 Intake Total 3350 ml 990 ml 3428 ml Output Total 1300 ml 1300 ml Balance 3350 ml -310 ml 2128 ml Intake Oral 240 ml 960 ml IV Total 3350 ml 750 ml 2468 ml Output Urine Total 1300 ml 1300 ml # Bowel Movements 1 1 Result Diagram: 01/23/18 0635 01/23/18 0635 Objective Remarks GENERAL: This is a obese, young white female who is awake . HEENT: Head is normocephalic. Pupils are reactive. Sclerae clear. Tongue is dry. Throat is clear . Nasal mucosa is clear. NECK: Supple. No bruits or thyroid enlargement, no lymphadenopathy. CHEST: Decreased excursions. Occasional expiratory wheezes in the upper lung rachel. No crackles on either side. HEART: The heart sounds are regular S1 and S2 with no murmur. ABDOMEN: Soft, obese without masses. No organomegaly. EXTREMITIES: Ulcerated areas over the skin with cellulitis in the left leg as well as in the right lower extremity and small reddish lesions on the face. The abdomen is obese and nontender with no organomegaly. NEUROLOGIC: The patient is awake, does answer questions appropriately. Reflexes 1+ with no gross motor deficits. Assessment and Plan Assessment and Plan ASSESSMENT AND PLAN: 1. Sepsis with cellulitis and skin ulcerations of the lower extremities. 2. Obstructive sleep apnea syndrome. 3. Asthma with bronchitis. 4. Hyperglycemia. 5. Extreme obesity Plan: 1. Continue antibiotics per ID 2. Nebs qid PRN , duoneb 3. BiPAP at HS 4. CBC,BMP in am 5. PFT in am. 6. Sleep study as OP. Palma Duran MD January 23, 2018 18:01
[2018-01-23] MEDS: INSULIN DETEMIR 100 UNITS/ML VIAL SQ SCH (20:13)
[2018-01-24] VITALS (28 sets, daily range): BP systolic 102–150; BP diastolic 48–77; PULSE 84–112; RESP 10–36; TEMP 97.9–98.8; O2SAT 94–100
[2018-01-24] MEDS: SODIUM CHLOR 0.9% 1000 ML INJ 1,000 ML IV SCH ×3 (03:37→20:07)
[2018-01-24] MEDS: HEPARIN SODIUM - SQ 10,000 UNITS/ML VIAL SQ SCH ×3 (05:09→21:47)
[2018-01-24] MEDS: ceFAZolin 2 GM/DEX PREMIX 50 ML IV SCH (05:09)
[2018-01-24 05:16] LABS: HEMATOCRIT 31.2 % (35.0-46.0); HEMOGLOBIN 10.3 GM/DL (11.6-15.3); MEAN CELL VOLUME 86.8 FL (80.0-100.0); MEAN CORPUSCULAR HEMOGLOBIN 28.5 PG (27.0-34.0); MEAN CORPUSCULAR HGB CONC 32.9 % (32.0-36.0); MEAN PLATELET VOLUME 8.8 FL (7.0-11.0); PLATELET COUNT 186 TH/MM3 (150-450); RED CELL DISTRIBUTION WIDTH 14.1 % (11.6-17.2); WHITE BLOOD COUNT 27.8 TH/MM3 (4.0-11.0)
[2018-01-24 05:31] LABS: BICARBONATE 21.6 MEQ/L (21.0-32.0); CALCIUM 8.1 MG/DL (8.5-10.1); MAGNESIUM 2.1 MG/DL (1.5-2.5)
[2018-01-24 05:35] LABS: CREATININE 1.9 MG/DL (0.50-1.00)
[2018-01-24] MEDS ORDERED: INSULIN HUMAN REGULAR 1,000 UNITS/10 ML VIAL IV PUSH ONE ×2 (05:45→06:45)
[2018-01-24] MEDS: RESP: ALBUTEROL 2.5 MG/IPRATROPIUM 0.5 MG NEB (SCH) NEB ×3 (07:40→19:59)
[2018-01-24] MEDS: methylPREDNISolone SOD SUCC 40 MG/1 ML VIAL IV PUSH SCH (09:06)
[2018-01-24] MEDS: INSULIN DETEMIR 100 UNITS/ML VIAL SQ SCH ×2 (09:07→20:12)
[2018-01-24] MEDS: INSULIN ASPART 1,000 UNITS/10 ML VIAL SQ SCH ×3 (09:07→18:20)
[2018-01-24] MEDS: DOCUSATE SODIUM 50 MG/SENNA 8.6 MG TAB PO SCH ×2 (09:08→20:08)
[2018-01-24] MEDS: INSULIN ASPART SUPPLEMENTAL SCALE SQ SCH ×4 (09:08→20:08)
[2018-01-24] MEDS: SODIUM CHLORIDE 0.9% FLUSH 10 ML FLUSH IV FLUSH SCH ×2 (09:08→20:11)
[2018-01-24] MEDS: BUDESONIDE-FORMOTEROL 160/4.5 MCG INHALER INH SCH ×2 (09:08→20:11)
[2018-01-24] MEDS ORDERED: INSULIN DETEMIR 100 UNITS/ML VIAL SQ ONE (11:00)
--- NOTE | 2018-01-24 12:52 | HHI.PR ---
Subjective Remarks Nursing reported that the patient had lice. The patient said that she has been having some urinary discomfort with the Ta. She says she has pain in her left lower extremity. She says she had an event where she took herself off the BiPAP last night and stopped breathing for a little while. She said she was breathing better right now. Discussed with nursing at the bedside. Objective Vitals Vital Signs Date Time Temp Pulse Resp B/P (MAP) Pulse Ox O2 Delivery O2 Flow Rate FiO2 01/24/18 12:00 98.4 98 31 140/73 (95) 98 01/24/18 11:00 100 32 124/75 (91) 98 01/24/18 10:00 102 28 107/48 (67) 98 01/24/18 09:00 96 36 136/77 (96) 99 01/24/18 08:00 100 10 109/73 (85) 100 01/24/18 07:50 98 25 112/68 (83) 99 01/24/18 07:40 99 Nasal Cannula 2.00 01/24/18 07:30 99 Nasal Cannula 1.00 01/24/18 07:00 98.3 96 131/68 (89) 98 01/24/18 07:00 98 Nasal Cannula 2.00 01/24/18 06:00 86 113/55 (74) 98 01/24/18 06:00 84 01/24/18 05:00 96 24 122/65 (84) 96 01/24/18 04:00 97.9 90 22 106/59 (75) 100 01/24/18 04:00 90 01/24/18 03:44 100 35 01/24/18 03:00 98 23 102/65 (77) 95 01/24/18 02:00 104 23 140/70 (93) 94 01/24/18 02:00 95 01/24/18 01:00 104 33 138/76 (96) 97 01/24/18 00:00 98 Nasal Cannula 2.00 01/24/18 00:00 98.8 104 12 123/66 (85) 97 01/24/18 00:00 102 01/23/18 23:14 99 Nasal Cannula 3.00 01/23/18 23:00 100 36 142/73 (96) 99 01/23/18 22:12 12 01/23/18 22:00 106 28 130/61 (84) 99 01/23/18 22:00 73 01/23/18 21:00 104 33 134/66 (88) 95 01/23/18 20:00 99.3 108 34 148/66 (93) 96 01/23/18 20:00 113 01/23/18 19:00 96 Nasal Cannula 3.00 01/23/18 19:00 108 35 137/65 (89) 96 01/23/18 18:00 102 01/23/18 18:00 99.0 106 32 135/69 (91) 96 01/23/18 17:00 112 35 153/84 (107) 95 01/23/18 16:00 116 32 117/54 (75) 97 01/23/18 16:00 106 01/23/18 15:00 100.1 120 29 130/67 (88) 96 01/23/18 14:25 97 Nasal Cannula 2.00 01/23/18 14:00 101.1 128 45 113/54 (73) 01/23/18 14:00 101 01/23/18 13:00 116 27 119/52 (74) 95 I/O 01/23/18 01/23/18 01/23/18 01/24/18 01/24/18 01/24/18 07:00 15:00 23:00 07:00 15:00 23:00 Intake Total 3428 ml 2760 ml 3449 ml Output Total 1300 ml 1450 ml 1200 ml Balance 2128 ml 1310 ml 2249 ml Intake Oral 960 ml 1120 ml 960 ml IV Total 2468 ml 1640 ml 2489 ml Output Urine Total 1300 ml 1450 ml 1200 ml # Bowel Movements 1 1 0 Result Diagram: 01/24/18 0501 01/24/18 0501 Imaging Last Impressions Chest X-Ray 01/22/18 0911 Signed Impressions: Service Date/Time: Monday, January 22, 2018 09:14 - CONCLUSION: Examination quality less than optimal secondary to patient body habitus. Given the technique, no acute finding is seen. Thom Ghotra MD Objective Remarks GENERAL: No distress. SKIN: Multiple honey crusted lesions with surrounding erythema all over her body. The largest one measures an inch diameter. Patient also has redness of her left leg extending up to the distal aspect of her knee. This feels warm to touch. HEAD: Atraumatic. Normocephalic. No temporal or scalp tenderness. EYES: Pupils equal round and reactive. Extraocular motions intact. No scleral icterus. No injection or drainage. ENT: Nose without bleeding, purulent drainage or septal hematoma. Throat without erythema, tonsillar hypertrophy or exudate. Uvula midline. Airway patent. NECK: Trachea midline. No JVD or lymphadenopathy. Supple, nontender, no meningeal signs. CARDIOVASCULAR: Tachycardic without murmurs, gallops, or rubs. RESPIRATORY: Breath sounds equal bilaterally. No wheezes, rales, or rhonchi. GASTROINTESTINAL: Abdomen soft, mildly tender, nondistended. No hepato- splenomegaly, or palpable masses. No guarding. MUSCULOSKELETAL: Extremities without clubbing, cyanosis, or edema. Left lower extremity tenderness over area of cellulitis. NEUROLOGICAL: Awake and alert. Cranial nerves II through XII intact. Motor and sensory grossly within normal limits. Five out of 5 muscle strength in all muscle groups. Normal speech. PSYCH: Calm. A/P Assessment and Plan Severe sepsis/ Cellulitis The patient presented with leukocytosis and fever up to 105.4. She has cellulitis of the left lower extremity and acute respiratory failure. Her lactic acid level is at 3. Infectious disease consult appreciated. - Continue IV vancomycin. DC cefazolin secondary to renal failure. - Continue aggressive IV fluids. - Follow culture data. Acute respiratory failure The pt was tachypneic on presentation. Chest x-ray without acute process. Has a history of untreated JAS and childhood asthma. Pulmonology consult appreciated. - BiPAP as needed. - follow up with pulmonology. - d/c IV Solumedrol. - standing nebs. - incentive spirometry. - encourage ambulation. DM A1c 7.7%. - insulin sliding scale. - increase Levemir. Continue short acting with meals. - d/c steroids. Acute renal failure Possibly exacerbated by antibiotics. - IVFs. - follow BMP and avoid nephrotoxins. - d/c cefazolin. - renal US. - calculate FENa. - repeat UA. PPx: Heparin Discharge Planning Transfer to floor Bang Jimenez DO January 24, 2018 12:52
[2018-01-24] MEDS ORDERED: SODIUM POLYSTYRENE SULFONATE SUSP 15 GM/60 ML CUP PO ONE (13:00)
[2018-01-24 13:12] LABS: BILIRUBIN, URINE NEG (NEG); BLOOD, URINE MOD (NEG); GLUCOSE,URINE 1000 OR GREATER mg/dL (NEG); KETONE, URINE NEG (NEG); NITRITE,URINE NEG (NEG); URINE COLOR YELLOW (YELLW/STRAW); URINE LEUKOCYTE ESTERASE NEG (NEG)
--- NOTE | 2018-01-24 14:18 | RADRPT ---
EXAM DATE/TIME: 01/24/2018 13:57 [place] COMPARISON: No previous studies available for comparison. INDICATIONS : Increased Bun and Creatinine. MEDICAL HISTORY : Thyroid disease. SURGICAL HISTORY : None. ENCOUNTER: Initial ACUITY: 1 day PAIN SCORE: 3/10 LOCATION: Bilateral flank MEASUREMENTS: RIGHT KIDNEY: 13.6 x 6.4 x 5.5 cm LEFT KIDNEY: 13.8 x 5.7 x 5.3 cm cm FINDINGS: RIGHT KIDNEY: Renal cortex is normal in thickness and echotexture. No hydronephrosis, stone, or mass. LEFT KIDNEY: Renal cortex is normal in thickness and echotexture. No hydronephrosis, stone, or mass. BLADDER: Within normal limits given the degree of distension. CONCLUSION: Negative exam. Bladder is mainly decompressed. Victor Manuel Cervantes MD on January 24, 2018 at 14:15 Board Certified Radiologist. This report was verified electronically.
[2018-01-24 17:44] LABS: CREATININE, RANDOM URINE 65.6 MG/DL
--- NOTE | 2018-01-24 19:29 | HHI.PR ---
Subjective Remarks Breathing Better today. Has no fever. Used BIPAP last nite. Skin still red on left leg Objective Vital Signs Date Time Temp Pulse Resp B/P (MAP) Pulse Ox O2 Delivery O2 Flow Rate FiO2 01/24/18 18:00 104 141/69 (93) 99 01/24/18 18:00 112 01/24/18 17:00 104 25 122/63 (82) 99 01/24/18 16:00 100 01/24/18 16:00 98.5 98 24 133/56 (81) 95 01/24/18 15:00 110 21 138/64 (88) 98 01/24/18 14:00 108 01/24/18 14:00 104 29 133/59 (83) 99 01/24/18 13:00 98 33 140/66 (90) 98 01/24/18 12:00 98.4 98 31 140/73 (95) 98 01/24/18 12:00 98 01/24/18 11:00 100 32 124/75 (91) 98 01/24/18 10:00 102 28 107/48 (67) 98 01/24/18 10:00 102 01/24/18 09:00 96 36 136/77 (96) 99 01/24/18 08:00 100 01/24/18 08:00 100 10 109/73 (85) 100 01/24/18 07:50 98 25 112/68 (83) 99 01/24/18 07:40 99 Nasal Cannula 2.00 01/24/18 07:30 99 Nasal Cannula 1.00 01/24/18 07:00 98.3 96 131/68 (89) 98 01/24/18 07:00 98 Nasal Cannula 2.00 01/24/18 06:00 86 113/55 (74) 98 01/24/18 06:00 84 01/24/18 05:00 96 24 122/65 (84) 96 01/24/18 04:00 97.9 90 22 106/59 (75) 100 01/24/18 04:00 90 01/24/18 03:44 100 35 01/24/18 03:00 98 23 102/65 (77) 95 01/24/18 02:00 104 23 140/70 (93) 94 01/24/18 02:00 95 01/24/18 01:00 104 33 138/76 (96) 97 01/24/18 00:00 98 Nasal Cannula 2.00 01/24/18 00:00 98.8 104 12 123/66 (85) 97 01/24/18 00:00 102 01/23/18 23:14 99 Nasal Cannula 3.00 01/23/18 23:00 100 36 142/73 (96) 99 01/23/18 22:12 12 01/23/18 22:00 106 28 130/61 (84) 99 01/23/18 22:00 73 01/23/18 21:00 104 33 134/66 (88) 95 01/23/18 20:00 99.3 108 34 148/66 (93) 96 01/23/18 20:00 113 I/O 01/23/18 01/23/18 01/23/18 01/24/18 01/24/18 01/24/18 07:00 15:00 23:00 07:00 15:00 23:00 Intake Total 3428 ml 2760 ml 3449 ml Output Total 1300 ml 1450 ml 1200 ml Balance 2128 ml 1310 ml 2249 ml Intake Oral 960 ml 1120 ml 960 ml IV Total 2468 ml 1640 ml 2489 ml Output Urine Total 1300 ml 1450 ml 1200 ml # Bowel Movements 1 1 0 Result Diagram: 01/24/18 0501 01/24/18 0501 Objective Remarks GENERAL: This is a obese, young white female who is awake . HEENT: Head is normocephalic. Pupils are reactive. Sclerae clear. Throat is clear . Nasal mucosa is clear. NECK: Supple. No bruits or thyroid enlargement, no lymphadenopathy. CHEST: Decreased excursions. Occasional expiratory wheezes in the upper lung rachel. No crackles on either side. HEART: The heart sounds are regular S1 and S2 with no murmur. ABDOMEN: Soft, obese without masses. No organomegaly. EXTREMITIES: Ulcerated areas over the skin with cellulitis in the left leg as well as in the right lower extremity . The abdomen is obese and nontender with no organomegaly. NEUROLOGIC: The patient is awake, . Reflexes 1+ with no gross motor deficits. Assessment and Plan Assessment and Plan ASSESSMENT AND PLAN: 1. Sepsis with cellulitis and skin ulcerations of the lower extremities. 2. Obstructive sleep apnea syndrome. 3. Asthma with bronchitis. 4. Hyperglycemia. 5. Extreme obesity Plan: 1. Continue antibiotics per ID 2. Nebs qid PRN , duoneb 3. BiPAP at HS 15/5 CM, 30 % FIO2 4. CBC,BMP in am 5. Up with help 6. Sleep study as OP. 7. DVT prophylaxis Palma Duran MD January 24, 2018 19:29
[2018-01-24] MEDS ORDERED: CHLORHEXIDINE GLUCONATE 2 % 1 PACK (2 CLOTHS)(extra cloths) TOPICAL PRN (20:00)
[2018-01-24] MEDS ORDERED: PHARMACY ORDERED LAB ONE (20:45)
[2018-01-24] MEDS: CHLORHEXIDINE GLUCONATE 2 % 1 PACK (2 CLOTHS)(taper/protocol) TOPICAL SCH (21:47)
[2018-01-25] VITALS (18 sets, daily range): BP systolic 124–157; BP diastolic 60–94; PULSE 74–114; RESP 0–28; TEMP 98–98.5; O2SAT 95–100
[2018-01-25] MEDS: SODIUM CHLOR 0.9% 1000 ML INJ 1,000 ML IV SCH ×4 (02:15→20:14)
[2018-01-25 05:12] LABS: HEMATOCRIT 29.3 % (35.0-46.0); HEMOGLOBIN 9.6 GM/DL (11.6-15.3); MEAN CELL VOLUME 86.6 FL (80.0-100.0); MEAN CORPUSCULAR HEMOGLOBIN 28.3 PG (27.0-34.0); MEAN CORPUSCULAR HGB CONC 32.6 % (32.0-36.0); MEAN PLATELET VOLUME 8.8 FL (7.0-11.0); PLATELET COUNT 187 TH/MM3 (150-450); RED BLOOD COUNT 3.38 MIL/MM3 (4.00-5.30); RED CELL DISTRIBUTION WIDTH 14.1 % (11.6-17.2); WHITE BLOOD COUNT 13.9 TH/MM3 (4.0-11.0)
[2018-01-25 05:30] LABS: BICARBONATE 23.2 MEQ/L (21.0-32.0); CREATININE 1.9 MG/DL (0.50-1.00); MAGNESIUM 2.4 MG/DL (1.5-2.5)
[2018-01-25] MEDS: HEPARIN SODIUM - SQ 10,000 UNITS/ML VIAL SQ SCH ×3 (05:54→20:29)
[2018-01-25] MEDS: RESP: ALBUTEROL 2.5 MG/IPRATROPIUM 0.5 MG NEB (SCH) NEB ×3 (07:50→20:05)
[2018-01-25] MEDS: INSULIN ASPART 1,000 UNITS/10 ML VIAL SQ SCH ×3 (08:35→17:24)
[2018-01-25] MEDS: INSULIN DETEMIR 100 UNITS/ML VIAL SQ SCH ×2 (08:35→20:28)
[2018-01-25] MEDS: DOCUSATE SODIUM 50 MG/SENNA 8.6 MG TAB PO SCH ×2 (08:36→20:14)
[2018-01-25] MEDS: INSULIN ASPART SUPPLEMENTAL SCALE SQ SCH ×4 (08:36→20:28)
[2018-01-25] MEDS: SODIUM CHLORIDE 0.9% FLUSH 10 ML FLUSH IV FLUSH SCH ×2 (08:37→20:15)
[2018-01-25] MEDS: BUDESONIDE-FORMOTEROL 160/4.5 MCG INHALER INH SCH ×2 (09:00→20:33)
[2018-01-25 10:25] LABS: RANDOM VANCOMYCIN 12.9 COMMENT
[2018-01-25] MEDS ORDERED: PHARMACY ORDERED LAB ONE (12:45)
--- NOTE | 2018-01-25 15:01 | HHI.PR ---
Subjective Remarks The patient was resting in bed. Her family was at the bedside. She was having some shortness of breath. She said her leg was feeling a little bit better. She wanted to know how her right leg was looking. Discussed with nursing at the bedside. Objective Vitals Vital Signs Date Time Temp Pulse Resp B/P (MAP) Pulse Ox O2 Delivery O2 Flow Rate FiO2 01/25/18 14:44 95 21 01/25/18 14:22 26 01/25/18 13:30 112 25 127/94 (105) 95 01/25/18 08:01 98.2 92 15 157/72 (100) 96 01/25/18 08:00 92 18 96 01/25/18 08:00 99 01/25/18 07:54 100 Nasal Cannula 1.00 01/25/18 07:01 76 15 149/60 (89) 100 01/25/18 07:00 99 Room Air 01/25/18 07:00 74 21 100 01/25/18 06:01 78 12 140/64 (89) 100 01/25/18 05:01 80 0 140/60 (86) 100 01/25/18 04:01 98.0 82 22 137/60 (85) 100 01/25/18 03:20 98 30 01/25/18 02:01 90 22 124/68 (86) 100 01/25/18 01:01 90 22 140/67 (91) 100 01/25/18 00:01 98.5 96 13 157/68 (97) 100 01/25/18 00:00 98 01/24/18 23:01 98 29 150/72 (98) 100 01/24/18 22:35 Bi-Pap 30 01/24/18 22:35 100 30 01/24/18 22:01 104 28 140/69 (92) 99 01/24/18 20:01 103 01/24/18 20:00 98.6 102 33 127/71 (89) 99 01/24/18 19:55 98 Nasal Cannula 1.00 01/24/18 19:00 98 Nasal Cannula 1.00 01/24/18 18:00 104 141/69 (93) 99 01/24/18 18:00 112 01/24/18 17:00 104 25 122/63 (82) 99 01/24/18 16:00 100 01/24/18 16:00 98.5 98 24 133/56 (81) 95 01/24/18 15:00 110 21 138/64 (88) 98 I/O 01/24/18 01/24/18 01/24/18 01/25/18 01/25/18 01/25/18 07:00 15:00 23:00 07:00 15:00 23:00 Intake Total 3449 ml 960 ml 2235 ml Output Total 1200 ml 1000 ml 900 ml 150 ml Balance 2249 ml -40 ml 1335 ml -150 ml Intake Oral 960 ml 960 ml 480 ml IV Total 2489 ml 1755 ml Output Urine Total 1200 ml 1000 ml 900 ml 150 ml # Bowel Movements 0 0 1 Result Diagram: 01/25/18 0444 01/25/18 0444 Imaging Last Impressions Renal Ultrasound 01/24/18 0000 Signed Impressions: Service Date/Time: Wednesday, January 24, 2018 13:57 - CONCLUSION: Negative exam. Bladder is mainly decompressed. Victor Manuel Cervantes MD Chest X-Ray 01/22/18 0911 Signed Impressions: Service Date/Time: Monday, January 22, 2018 09:14 - CONCLUSION: Examination quality less than optimal secondary to patient body habitus. Given the technique, no acute finding is seen. Thom Ghotra MD Objective Remarks GENERAL: No distress. SKIN: Multiple honey crusted lesions with surrounding erythema all over her body. The largest one measures an inch diameter. Patient also has redness of her left leg extending up to the distal aspect of her knee. This feels warm to touch. HEAD: Atraumatic. Normocephalic. No temporal or scalp tenderness. EYES: Pupils equal round and reactive. Extraocular motions intact. No scleral icterus. No injection or drainage. ENT: Nose without bleeding, purulent drainage or septal hematoma. Throat without erythema, tonsillar hypertrophy or exudate. Uvula midline. Airway patent. NECK: Trachea midline. No JVD or lymphadenopathy. Supple, nontender, no meningeal signs. CARDIOVASCULAR: Tachycardic without murmurs, gallops, or rubs. RESPIRATORY: Diffuse wheezing. GASTROINTESTINAL: Abdomen soft, mildly tender, nondistended. No hepato- splenomegaly, or palpable masses. No guarding. MUSCULOSKELETAL: Extremities without clubbing, cyanosis, or edema. Left lower extremity tenderness over area of cellulitis. NEUROLOGICAL: Awake and alert. Cranial nerves II through XII intact. Motor and sensory grossly within normal limits. Five out of 5 muscle strength in all muscle groups. Normal speech. PSYCH: Calm. A/P Assessment and Plan Severe sepsis/ Cellulitis The patient presented with leukocytosis and fever up to 105.4. She has cellulitis of the left lower extremity and acute respiratory failure. Her lactic acid level is at 3. Infectious disease consult appreciated. - Continue IV vancomycin. DC cefazolin secondary to renal failure. - Continue aggressive IV fluids. - Follow culture data. Acute respiratory failure The pt was tachypneic on presentation. Chest x-ray without acute process. Has a history of untreated JAS and childhood asthma. Pulmonology consult appreciated. - BiPAP as needed. - follow up with pulmonology. - resume IV Solumedrol. - standing nebs. - incentive spirometry. - encourage ambulation. DM A1c 7.7%. - insulin sliding scale. - increase Levemir. Continue short acting with meals. - wean steroids as tolerated. Acute renal failure Possibly exacerbated by antibiotics. Renal US negative. FENa indicates prerenal etiology. - IVFs. - follow BMP and avoid nephrotoxins. - d/c cefazolin. - nephrology consult if no improvement in the AM. PPx: Bang Blanca DO January 25, 2018 15:01
[2018-01-25] MEDS ORDERED: VANCOMYCIN INJ 2,400 MG in SODIUM CHLORID 0.9% 500 ML INJ 500 ML IV SCH (16:00)
[2018-01-25] MEDS: methylPREDNISolone SOD SUCC 40 MG/1 ML VIAL IV PUSH SCH (16:37)
--- NOTE | 2018-01-25 18:02 | HHI.PR ---
Subjective Remarks Breathing Better today. Has some weakness and stood with help. Used BIPAP last nite. Skin cellulitis is better. Objective Vital Signs Date Time Temp Pulse Resp B/P (MAP) Pulse Ox O2 Delivery O2 Flow Rate FiO2 01/25/18 14:44 95 21 01/25/18 14:22 26 01/25/18 13:30 112 25 127/94 (105) 95 01/25/18 08:01 98.2 92 15 157/72 (100) 96 01/25/18 08:00 92 18 96 01/25/18 08:00 99 01/25/18 07:54 100 Nasal Cannula 1.00 01/25/18 07:01 76 15 149/60 (89) 100 01/25/18 07:00 99 Room Air 01/25/18 07:00 74 21 100 01/25/18 06:01 78 12 140/64 (89) 100 01/25/18 05:01 80 0 140/60 (86) 100 01/25/18 04:01 98.0 82 22 137/60 (85) 100 01/25/18 03:20 98 30 01/25/18 02:01 90 22 124/68 (86) 100 01/25/18 01:01 90 22 140/67 (91) 100 01/25/18 00:01 98.5 96 13 157/68 (97) 100 01/25/18 00:00 98 01/24/18 23:01 98 29 150/72 (98) 100 01/24/18 22:35 Bi-Pap 30 01/24/18 22:35 100 30 01/24/18 22:01 104 28 140/69 (92) 99 01/24/18 20:01 103 01/24/18 20:00 98.6 102 33 127/71 (89) 99 01/24/18 19:55 98 Nasal Cannula 1.00 01/24/18 19:00 98 Nasal Cannula 1.00 01/24/18 18:00 104 141/69 (93) 99 01/24/18 18:00 112 I/O 01/24/18 01/24/18 01/24/18 01/25/18 01/25/18 01/25/18 07:00 15:00 23:00 07:00 15:00 23:00 Intake Total 3449 ml 960 ml 2235 ml Output Total 1200 ml 1000 ml 900 ml 150 ml Balance 2249 ml -40 ml 1335 ml -150 ml Intake Oral 960 ml 960 ml 480 ml IV Total 2489 ml 1755 ml Output Urine Total 1200 ml 1000 ml 900 ml 150 ml # Bowel Movements 0 0 1 Result Diagram: 01/25/1844301/25/18443 Objective Remarks GENERAL: This is a obese, young white female who is awake . HEENT: Head is normocephalic. Pupils are reactive. Sclerae clear. Throat is clear . Nasal mucosa is clear.Facial bug bite lesions healing NECK: Supple. No bruits or thyroid enlargement, no lymphadenopathy. CHEST: Decreased excursions. Occasional expiratory wheezes in the upper lung rachel. No crackles on either side. HEART: The heart sounds are regular S1 and S2 with no murmur. ABDOMEN: Soft, obese without masses. No organomegaly. EXTREMITIES: Ulcerated areas over the skin with cellulitis in the left leg as well as in the right lower extremity . The abdomen is obese and nontender with no organomegaly. NEUROLOGIC: The patient is awake, . Reflexes 1+ with no gross motor deficits. Assessment and Plan Assessment and Plan ASSESSMENT AND PLAN: 1. Sepsis with cellulitis and skin ulcerations of the lower extremities. 2. Obstructive sleep apnea syndrome. 3. Asthma with bronchitis. 4. Hyperglycemia. 5. Extreme obesity Plan: 1. Continue antibiotics per ID 2. Nebs qid PRN , duoneb 3. BiPAP at HS 15/5 CM, 30 % FIO2 4. PFT with Bronchodilator 5. Up with help 6. Sleep study as OP. 7. DVT prophylaxis 8. Will arrange home o2. Palma Duran MD January 25, 2018 18:02
--- NOTE | 2018-01-25 18:33 | HHI.IDPN ---
Note Infectious Disease Note ID coverage follow-up. Notes reviewed. 32 yr old female admitted with with shortness and breath and rash on her legs. Also had fever and chills. Currently on antibiotics for cellulitis of the left leg. Patient notes mild shortness of breath. Awake and alert. Afebrile. Wound culture has complete MRSA and group A beta strep.. Past Family Social History Allergies: Coded Allergies: No Known Allergies (Verified Adverse Reaction, Unknown, 01/22/18) Past Medical History Past Medical History Obstructive sleep apnea Childhood asthma Irritable bowel syndrome Bedbug exposure Allergies: Coded Allergies: No Known Allergies (Verified Adverse Reaction, Unknown, 01/22/18) Current Medications Medications (Trade) Dose Ordered Sig/Toni Route PRN Reason Start Time Stop Time Status Last Admin Dose Admin Sodium Chloride 1,000 ml @ 150 mls/hr Q6H40M IV 01/22/18 11:00 01/25/18 05:40 Sodium Chloride (NS Flush) 2 ml UNSCH PRN IV FLUSH FLUSH AFTER USING IV ACCESS 01/22/18 11:00 Sodium Chloride (NS Flush) 2 ml BID IV FLUSH 01/22/18 21:00 01/24/18 20:11 Acetaminophen (Tylenol) 650 mg Q4H PRN PO TEMP > 100.4 01/22/18 11:00 01/22/18 17:00 Ondansetron HCl (Zofran Inj) 4 mg Q6H PRN IVP NAUSEA OR VOMITING 01/22/18 11:00 Acetaminophen (Tylenol) 650 mg Q6H PRN PO PAIN SCALE 1 TO 2 01/22/18 11:00 01/23/18 14:00 Oxycodone HCl (Roxicodone) 10 mg Q4H PRN PO PAIN SCALE 6 TO 10 01/22/18 11:00 01/25/18 13:22 Morphine Sulfate (Morphine Inj) 4 mg Q3H PRN IV PUSH BREAKTHROUGH PAIN 01/22/18 11:00 01/23/18 22:07 Oxycodone HCl (Roxicodone) 5 mg Q4H PRN PO PAIN SCALE 3 TO 5 01/22/18 11:00 01/24/18 18:32 Naloxone HCl (Narcan Inj) 0.4 mg UNSCH PRN IV PUSH SEE LABEL COMMENTS 01/22/18 11:00 Senna/Docusate Sodium (Marisela-Colace) 1 tab BID PO 01/22/18 21:00 01/24/18 20:08 Pharmacy Profile Note 0 ml @ 0 mls/hr UNSCH OTHER 01/22/18 11:15 Heparin Sodium (Porcine) (Heparin Inj) 5,000 units Q8HR SQ 01/22/18 14:00 01/25/18 13:22 Albuterol/ Ipratropium (Duoneb Neb) 1 ampule Q2HR NEB PRN NEB dyspnea 01/22/18 14:15 Albuterol/ Ipratropium (Duoneb Neb) 1 ampule Q6HR WHILE AWAKE NEB NEB 01/22/18 15:00 01/25/18 14:44 Lorazepam (Ativan Inj) 1 mg Q6H PRN IV PUSH anxiety 01/22/18 15:15 01/22/18 15:17 Budesonide/ Formoterol Fumarate (Symbicort 160-4.5 Mcg Inh) 2 puff Q12HR INH 01/22/18 21:00 01/25/18 09:00 Miscellaneous Information ([facility] [place] [facility] Information) Patient in critical care unit? Ass... [id number] .XX 01/24/18 20:00 01/24/18 20:00 Chlorhexidine Gluconate (Chlorhexidine 2% Cloth) 3 pack DAILY@04 TOPICAL 01/25/18 04:00 01/29/18 04:01 01/24/18 21:47 Chlorhexidine Gluconate (Chlorhexidine 2% Cloth) 3 pack UNSCH PRN TOPICAL HYGIENIC CARE 01/24/18 20:00 01/29/18 19:52 Insulin Aspart (NovoLOG SUPPLEMENTAL SCALE) 1 ACHS SLIDING SCALE SQ 01/25/18 08:00 01/25/18 17:24 Vancomycin HCl 2400 mg/Sodium Chloride 524 ml @ 250 mls/hr DAILY@1600 IV 01/25/18 16:00 01/25/18 16:48 Miscellaneous Information ([facility] [place] [facility] Ordered Lab Info) SPECIFIC LAB TO BE DRAWN:VANCO TROUGH DATE TO... ONCE ONCE .XX 01/28/18 15:45 01/28/18 15:46 Methylprednisolone Sodium Succinate (SoluMEDROL INJ) 40 mg Q12H IV PUSH 01/25/18 15:00 01/25/18 16:37 Insulin Aspart (NovoLOG INJ) 5 units TIDAC SQ 01/25/18 17:00 01/25/18 17:24 Insulin Detemir (Levemir Inj) 20 units Q12HR SQ 01/25/18 21:00 Family History Maternal history of diabetes and obesity Objective: Vital Signs Date Time Temp Pulse Resp B/P (MAP) Pulse Ox O2 Delivery O2 Flow Rate FiO2 01/25/18 17:50 114 26 136/73 (94) 95 01/25/18 14:44 95 21 01/25/18 14:22 26 01/25/18 13:30 112 25 127/94 (105) 95 01/25/18 08:01 98.2 92 15 157/72 (100) 96 01/25/18 08:00 92 18 96 01/25/18 08:00 99 01/25/18 07:54 100 Nasal Cannula 1.00 01/25/18 07:01 76 15 149/60 (89) 100 01/25/18 07:00 99 Room Air 01/25/18 07:00 74 21 100 01/25/18 06:01 78 12 140/64 (89) 100 01/25/18 05:01 80 0 140/60 (86) 100 01/25/18 04:01 98.0 82 22 137/60 (85) 100 01/25/18 03:20 98 30 01/25/18 02:01 90 22 124/68 (86) 100 01/25/18 01:01 90 22 140/67 (91) 100 01/25/18 00:01 98.5 96 13 157/68 (97) 100 01/25/18 00:00 98 01/24/18 23:01 98 29 150/72 (98) 100 01/24/18 22:35 Bi-Pap 30 01/24/18 22:35 100 30 01/24/18 22:01 104 28 140/69 (92) 99 01/24/18 20:01 103 01/24/18 20:00 98.6 102 33 127/71 (89) 99 01/24/18 19:55 98 Nasal Cannula 1.00 01/24/18 19:00 98 Nasal Cannula 1.00 Laboratory Tests Test 01/24/18 05:01 01/25/18 04:44 White Blood Count 27.8 TH/MM3 13.9 TH/MM3 Red Blood Count 3.60 MIL/MM3 3.38 MIL/MM3 Hemoglobin 10.3 GM/DL 9.6 GM/DL Hematocrit 31.2 % 29.3 % Mean Corpuscular Volume 86.8 FL 86.6 FL Mean Corpuscular Hemoglobin 28.5 PG 28.3 PG Mean Corpuscular Hemoglobin Concent 32.9 % 32.6 % Red Cell Distribution Width 14.1 % 14.1 % Platelet Count 186 TH/MM3 187 TH/MM3 Mean Platelet Volume 8.8 FL 8.8 FL Laboratory Tests Test 01/24/18 05:01 01/25/18 04:44 Blood Urea Nitrogen 27 MG/DL 35 MG/DL Creatinine 1.90 MG/DL 1.90 MG/DL Random Glucose 519 MG/DL 316 MG/DL Calcium Level 8.1 MG/DL 8.0 MG/DL Magnesium Level 2.1 MG/DL 2.4 MG/DL Sodium Level 137 MEQ/L 141 MEQ/L Potassium Level 5.4 MEQ/L 4.5 MEQ/L Chloride Level 107 MEQ/L 110 MEQ/L Carbon Dioxide Level 21.6 MEQ/L 23.2 MEQ/L Anion Gap 8 MEQ/L 8 MEQ/L Estimat Glomerular Filtration Rate 31 ML/MIN 31 ML/MIN Imaging: Renal Ultrasound 01/24/18 0000 Signed Impressions: Service Date/Time: Wednesday, January 24, 2018 13:57 - CONCLUSION: Negative exam. Bladder is mainly decompressed. Victor Manuel Cervantes MD Chest X-Ray 01/22/18 0911 Signed Impressions: Service Date/Time: Monday, January 22, 2018 09:14 - CONCLUSION: Examination quality less than optimal secondary to patient body habitus. Given the technique, no acute finding is seen. Thom Ghotra MD PHYSICAL EXAM: GENERAL: Alert and oriented, no acute distress. HEENT: Pupils reactive to light. Extraocular movements intact. No icterus. NECK: Supple without adenopathy. No swelling. LUNGS: Clear decreased breath sounds. HEART: Regular S1 and S2. No audible murmurs rubs or gallops. ABDOMEN: Obese, large abdominal girth. Soft, decreased bowel sounds. EXTREMITIES: Erythema of the left lower extremity. Dry ulcers 3 at the left lower extremity. 1 dry ulcer at the right foot. Multiple excoriations on the upper extremities SKIN: No diffuse rash. NEUROLOGIC: Nonfocal. PSYCH: Calm and cooperative. Assessment and Plan Cellulitis of the left lower extremity. Culture growing group A strep and MRSA. Leukocytosis. Acute kidney disease. Recommendation: 1. Stop vancomycin. 2. Begin daptomycin. 3. Monitor response to the antibiotic treatment. Jan Steward MD January 25, 2018 18:33
[2018-01-26] VITALS (11 sets, daily range): BP systolic 128–164; BP diastolic 59–90; PULSE 78–96; RESP 13–31; TEMP 97.2–98; O2SAT 96–100
[2018-01-26] MEDS: SODIUM CHLOR 0.9% 1000 ML INJ 1,000 ML IV SCH ×4 (00:20→21:01)
[2018-01-26] MEDS: methylPREDNISolone SOD SUCC 40 MG/1 ML VIAL IV PUSH SCH ×2 (02:28→16:17)
[2018-01-26] MEDS: CHLORHEXIDINE GLUCONATE 2 % 1 PACK (2 CLOTHS)(taper/protocol) TOPICAL SCH (04:00)
[2018-01-26] MEDS: RESP: ALBUTEROL 2.5 MG/IPRATROPIUM 0.5 MG NEB (PRN) NEB ×2 (05:06→22:50)
[2018-01-26 05:38] LABS: HEMATOCRIT 29.3 % (35.0-46.0); HEMOGLOBIN 9.6 GM/DL (11.6-15.3); MEAN CELL VOLUME 86.1 FL (80.0-100.0); MEAN CORPUSCULAR HEMOGLOBIN 28.2 PG (27.0-34.0); MEAN CORPUSCULAR HGB CONC 32.7 % (32.0-36.0); MEAN PLATELET VOLUME 8.6 FL (7.0-11.0); PLATELET COUNT 216 TH/MM3 (150-450); RED CELL DISTRIBUTION WIDTH 14.1 % (11.6-17.2); WHITE BLOOD COUNT 14.2 TH/MM3 (4.0-11.0)
[2018-01-26] MEDS: DAPTOmycin INJ 900 MG in SODIUM CHLORIDE 0.9% INJ 100 ML IV SCH (05:48)
[2018-01-26] MEDS: HEPARIN SODIUM - SQ 10,000 UNITS/ML VIAL SQ SCH ×3 (05:48→21:49)
[2018-01-26 05:49] LABS: CALCIUM 8.4 MG/DL (8.5-10.1)
[2018-01-26 05:50] LABS: BICARBONATE 23.1 MEQ/L (21.0-32.0)
[2018-01-26 05:56] LABS: CREATININE 1.6 MG/DL (0.50-1.00); MAGNESIUM 2.5 MG/DL (1.5-2.5)
[2018-01-26] MEDS: RESP: ALBUTEROL 2.5 MG/IPRATROPIUM 0.5 MG NEB (SCH) NEB ×2 (07:40→14:22)
[2018-01-26] MEDS: SODIUM CHLORIDE 0.9% FLUSH 10 ML FLUSH IV FLUSH SCH ×2 (09:00→21:00)
[2018-01-26] MEDS: BUDESONIDE-FORMOTEROL 160/4.5 MCG INHALER INH SCH ×2 (09:00→21:00)
[2018-01-26] MEDS: INSULIN ASPART 1,000 UNITS/10 ML VIAL SQ SCH ×3 (10:24→17:45)
[2018-01-26] MEDS: INSULIN ASPART SUPPLEMENTAL SCALE SQ SCH ×4 (10:25→21:50)
[2018-01-26] MEDS: DOCUSATE SODIUM 50 MG/SENNA 8.6 MG TAB PO SCH ×2 (10:25→21:49)
[2018-01-26] MEDS: INSULIN DETEMIR 100 UNITS/ML VIAL SQ SCH ×2 (10:26→21:49)
--- NOTE | 2018-01-26 17:32 | HHI.PR ---
Subjective Remarks The patient requested an additional day of the Ta catheter. She said that with her positioning and condition she could not even use a bedpan. She said her leg is getting better. She feels her breathing is better. Her family was at the bedside and her questions were answered. Discussed with nursing. Objective Vitals Vital Signs Date Time Temp Pulse Resp B/P (MAP) Pulse Ox O2 Delivery O2 Flow Rate FiO2 01/26/18 16:02 94 31 99 01/26/18 15:00 98.0 96 28 156/68 (97) 97 01/26/18 08:00 97.9 88 16 135/71 (92) 100 01/26/18 07:40 100 Nasal Cannula 2.00 01/26/18 07:00 Nasal Cannula 2.00 01/26/18 05:00 98 Nasal Cannula 2.00 01/26/18 04:00 97.2 78 13 128/69 (88) 98 01/26/18 02:25 99 30 01/26/18 00:00 97.3 92 14 133/59 (83) 100 01/25/18 23:30 99 30 01/25/18 23:30 93 Bi-Pap 30 01/25/18 20:00 98.0 104 28 124/71 (88) 98 01/25/18 20:00 98 Nasal Cannula 2.00 01/25/18 19:00 97 Nasal Cannula 2.00 01/25/18 17:50 114 26 136/73 (94) 95 I/O 01/25/18 01/25/18 01/25/18 01/26/18 01/26/18 01/26/18 06:59 14:59 22:59 06:59 14:59 22:59 Intake Total 2235 ml 3460 ml 2320 ml Output Total 900 ml 150 ml 1450 ml 1200 ml 1900 ml Balance 1335 ml -150 ml 2010 ml 1120 ml -1900 ml Intake Oral 480 ml 820 ml 720 ml IV Total 1755 ml 2640 ml 1600 ml Output Urine Total 900 ml 150 ml 1450 ml 1200 ml 1900 ml # Bowel Movements 1 0 Result Diagram: 01/26/18 0513 01/26/18 0513 Imaging Last Impressions Renal Ultrasound 01/24/18 0000 Signed Impressions: Service Date/Time: Wednesday, January 24, 2018 13:57 - CONCLUSION: Negative exam. Bladder is mainly decompressed. Victor Manuel Cervantes MD Chest X-Ray 01/22/18 0911 Signed Impressions: Service Date/Time: Monday, January 22, 2018 09:14 - CONCLUSION: Examination quality less than optimal secondary to patient body habitus. Given the technique, no acute finding is seen. Thom Ghotra MD Objective Remarks GENERAL: No distress. SKIN: Left lower extremity erythema and swelling improving. HEAD: Atraumatic. Normocephalic. No temporal or scalp tenderness. EYES: Pupils equal round and reactive. Extraocular motions intact. No scleral icterus. No injection or drainage. ENT: Nose without bleeding, purulent drainage or septal hematoma. Throat without erythema, tonsillar hypertrophy or exudate. Uvula midline. Airway patent. NECK: Trachea midline. No JVD or lymphadenopathy. Supple, nontender, no meningeal signs. CARDIOVASCULAR: Tachycardic without murmurs, gallops, or rubs. RESPIRATORY: Wheezing improved. GASTROINTESTINAL: Abdomen soft, mildly tender, nondistended. No hepato- splenomegaly, or palpable masses. No guarding. MUSCULOSKELETAL: Extremities without clubbing, cyanosis, or edema. Left lower extremity tenderness over area of cellulitis. NEUROLOGICAL: Awake and alert. Cranial nerves II through XII intact. Motor and sensory grossly within normal limits. Five out of 5 muscle strength in all muscle groups. Normal speech. PSYCH: Calm. A/P Assessment and Plan Severe sepsis/ Cellulitis The patient presented with leukocytosis and fever up to 105.4. She has cellulitis of the left lower extremity and acute respiratory failure. Her lactic acid level is at 3. Infectious disease consult appreciated. - antibiotics changed to IV daptomycin per ID. - Continue aggressive IV fluids. - Follow culture data. Acute respiratory failure The pt was tachypneic on presentation. Chest x-ray without acute process. Has a history of untreated JAS and childhood asthma. Pulmonology consult appreciated. - BiPAP as needed. - follow up with pulmonology. - resumed IV Solumedrol. - standing nebs. - incentive spirometry. - encourage ambulation. DM A1c 7.7%. - insulin sliding scale. - increase Levemir. Continue short acting with meals. - wean steroids as tolerated. - wellness educator consult appreciated. Acute renal failure Possibly exacerbated by antibiotics. Renal US negative. FENa indicates prerenal etiology. Improving. - IVFs. - follow BMP and avoid nephrotoxins. - d/c cefazolin. PPx: Heparin Bang Jimenez DO January 26, 2018 17:32
--- NOTE | 2018-01-26 18:06 | HHI.PR ---
Subjective Remarks Breathing Better today. Has some weakness and stood and walked with help. Used BIPAP last nite. Skin cellulitis is better. Will need Sleep test Objective Vital Signs Date Time Temp Pulse Resp B/P (MAP) Pulse Ox O2 Delivery O2 Flow Rate FiO2 01/26/18 16:02 94 31 99 01/26/18 15:00 98.0 96 28 156/68 (97) 97 01/26/18 08:00 97.9 88 16 135/71 (92) 100 01/26/18 07:40 100 Nasal Cannula 2.00 01/26/18 07:00 Nasal Cannula 2.00 01/26/18 05:00 98 Nasal Cannula 2.00 01/26/18 04:00 97.2 78 13 128/69 (88) 98 01/26/18 02:25 99 30 01/26/18 00:00 97.3 92 14 133/59 (83) 100 01/25/18 23:30 99 30 01/25/18 23:30 93 Bi-Pap 30 01/25/18 20:00 98.0 104 28 124/71 (88) 98 01/25/18 20:00 98 Nasal Cannula 2.00 01/25/18 19:00 97 Nasal Cannula 2.00 I/O 01/25/18 01/25/18 01/25/18 01/26/18 01/26/18 01/26/18 07:00 15:00 23:00 07:00 15:00 23:00 Intake Total 2235 ml 3460 ml 2320 ml Output Total 900 ml 150 ml 1450 ml 1200 ml 1900 ml Balance 1335 ml -150 ml 2010 ml 1120 ml -1900 ml Intake Oral 480 ml 820 ml 720 ml IV Total 1755 ml 2640 ml 1600 ml Output Urine Total 900 ml 150 ml 1450 ml 1200 ml 1900 ml # Bowel Movements 1 0 Result Diagram: 01/26/18 0513 01/26/18 0513 Objective Remarks GENERAL: This is a obese, young white female who is awake . HEENT: Head is normocephalic. Pupils are reactive. Sclerae clear. Throat is clear . Nasal mucosa is clear.Facial bug bite lesions healing NECK: Supple. No bruits or thyroid enlargement, no lymphadenopathy. CHEST: Decreased excursions. Occasional wheezes in the upper lung rachel. No crackles on either side. HEART: The heart sounds are regular S1 and S2 with no murmur. ABDOMEN: Soft, obese without masses. No organomegaly. EXTREMITIES: Ulcerated areas over the skin with cellulitis in the left leg healing. The abdomen is obese and nontender with no organomegaly. NEUROLOGIC: The patient is awake, . Reflexes 1+ with no gross motor deficits. Assessment and Plan Assessment and Plan ASSESSMENT AND PLAN: 1. Sepsis with cellulitis and skin ulcerations of the lower extremities. 2. Obstructive sleep apnea syndrome. 3. Asthma with bronchitis. 4. Hyperglycemia. 5. Extreme obesity Plan: 1. Continue antibiotics per ID 2. Nebs qid PRN , duoneb 3. BiPAP at HS 15/5 CM, 30 % FIO2 4. CBC,BMP 5. Up with help 6. Sleep study as OP. 7. DVT prophylaxis 8. Will arrange home o2. Palma Duran MD January 26, 2018 18:06
--- NOTE | 2018-01-26 18:19 | HHI.IDPN ---
Note Infectious Disease Note ID coverage follow-up. 32 yr old female admitted with with shortness and breath and rash on her legs. Also had fever and chills. Currently on antibiotics for cellulitis of the left leg. Patient says that her breathing is better. She feels okay. Awake and alert. Afebrile. States that her left leg feels heavy but not as warm. Past Family Social History Allergies: Coded Allergies: No Known Allergies (Verified Adverse Reaction, Unknown, 01/22/18) Past Medical History Past Medical History Obstructive sleep apnea Childhood asthma Irritable bowel syndrome Bedbug exposure Allergies: Coded Allergies: No Known Allergies (Verified Adverse Reaction, Unknown, 01/22/18) Current Medications Medications (Trade) Dose Ordered Sig/Toni Route PRN Reason Start Time Stop Time Status Last Admin Dose Admin Sodium Chloride 1,000 ml @ 150 mls/hr Q6H40M IV 01/22/18 11:00 01/26/18 16:18 Sodium Chloride (NS Flush) 2 ml UNSCH PRN IV FLUSH FLUSH AFTER USING IV ACCESS 01/22/18 11:00 Sodium Chloride (NS Flush) 2 ml BID IV FLUSH 01/22/18 21:00 01/25/18 20:15 Acetaminophen (Tylenol) 650 mg Q4H PRN PO TEMP > 100.4 01/22/18 11:00 01/22/18 17:00 Ondansetron HCl (Zofran Inj) 4 mg Q6H PRN IVP NAUSEA OR VOMITING 01/22/18 11:00 Acetaminophen (Tylenol) 650 mg Q6H PRN PO PAIN SCALE 1 TO 2 01/22/18 11:00 01/23/18 14:00 Oxycodone HCl (Roxicodone) 10 mg Q4H PRN PO PAIN SCALE 6 TO 10 01/22/18 11:00 01/25/18 13:22 Morphine Sulfate (Morphine Inj) 4 mg Q3H PRN IV PUSH BREAKTHROUGH PAIN 01/22/18 11:00 01/23/18 22:07 Oxycodone HCl (Roxicodone) 5 mg Q4H PRN PO PAIN SCALE 3 TO 5 01/22/18 11:00 01/24/18 18:32 Naloxone HCl (Narcan Inj) 0.4 mg UNSCH PRN IV PUSH SEE LABEL COMMENTS 01/22/18 11:00 Senna/Docusate Sodium (Marisela-Colace) 1 tab BID PO 01/22/18 21:00 01/26/18 10:25 Heparin Sodium (Porcine) (Heparin Inj) 5,000 units Q8HR SQ 01/22/18 14:00 01/26/18 13:38 Albuterol/ Ipratropium (Duoneb Neb) 1 ampule Q2HR NEB PRN NEB dyspnea 01/22/18 14:15 01/26/18 05:06 Lorazepam (Ativan Inj) 1 mg Q6H PRN IV PUSH anxiety 01/22/18 15:15 01/22/18 15:17 Budesonide/ Formoterol Fumarate (Symbicort 160-4.5 Mcg Inh) 2 puff Q12HR INH 01/22/18 21:00 01/26/18 09:00 Miscellaneous Information ([facility] Nursing Information) Patient in critical care unit? Ass... [id number] .XX 01/24/18 20:00 01/24/18 20:00 Chlorhexidine Gluconate (Chlorhexidine 2% Cloth) 3 pack DAILY@04 TOPICAL 01/25/18 04:00 01/29/18 04:01 01/24/18 21:47 Chlorhexidine Gluconate (Chlorhexidine 2% Cloth) 3 pack UNSCH PRN TOPICAL HYGIENIC CARE 01/24/18 20:00 01/29/18 19:52 Insulin Aspart (NovoLOG SUPPLEMENTAL SCALE) 1 ACHS SLIDING SCALE SQ 01/25/18 08:00 01/26/18 17:46 Insulin Aspart (NovoLOG INJ) 5 units TIDAC SQ 01/25/18 17:00 01/26/18 17:45 Insulin Detemir (Levemir Inj) 20 units Q12HR SQ 01/25/18 21:00 01/26/18 10:26 Daptomycin 900 mg/ Sodium Chloride 100 ml @ 200 mls/hr Q24H IV 01/26/18 06:00 01/26/18 05:48 Objective: Vital Signs Date Time Temp Pulse Resp B/P (MAP) Pulse Ox O2 Delivery O2 Flow Rate FiO2 01/26/18 16:02 94 31 99 01/26/18 15:00 98.0 96 28 156/68 (97) 97 01/26/18 08:00 97.9 88 16 135/71 (92) 100 01/26/18 07:40 100 Nasal Cannula 2.00 01/26/18 07:00 Nasal Cannula 2.00 01/26/18 05:00 98 Nasal Cannula 2.00 01/26/18 04:00 97.2 78 13 128/69 (88) 98 01/26/18 02:25 99 30 01/26/18 00:00 97.3 92 14 133/59 (83) 100 01/25/18 23:30 99 30 01/25/18 23:30 93 Bi-Pap 30 01/25/18 20:00 98.0 104 28 124/71 (88) 98 01/25/18 20:00 98 Nasal Cannula 2.00 01/25/18 19:00 97 Nasal Cannula 2.00 Laboratory Tests Test 01/25/18 04:44 01/26/18 05:13 White Blood Count 13.9 TH/MM3 14.2 TH/MM3 Red Blood Count 3.38 MIL/MM3 3.40 MIL/MM3 Hemoglobin 9.6 GM/DL 9.6 GM/DL Hematocrit 29.3 % 29.3 % Mean Corpuscular Volume 86.6 FL 86.1 FL Mean Corpuscular Hemoglobin 28.3 PG 28.2 PG Mean Corpuscular Hemoglobin Concent 32.6 % 32.7 % Red Cell Distribution Width 14.1 % 14.1 % Platelet Count 187 TH/MM3 216 TH/MM3 Mean Platelet Volume 8.8 FL 8.6 FL Laboratory Tests Test 01/25/18 04:44 01/26/18 05:13 Blood Urea Nitrogen 35 MG/DL 33 MG/DL Creatinine 1.90 MG/DL 1.60 MG/DL Random Glucose 316 MG/DL 200 MG/DL Calcium Level 8.0 MG/DL 8.4 MG/DL Magnesium Level 2.4 MG/DL 2.5 MG/DL Sodium Level 141 MEQ/L 141 MEQ/L Potassium Level 4.5 MEQ/L 4.7 MEQ/L Chloride Level 110 MEQ/L 112 MEQ/L Carbon Dioxide Level 23.2 MEQ/L 23.1 MEQ/L Anion Gap 8 MEQ/L 6 MEQ/L Estimat Glomerular Filtration Rate 31 ML/MIN 38 ML/MIN Imaging: Renal Ultrasound 01/24/18 0000 Signed Impressions: Service Date/Time: Wednesday, January 24, 2018 13:57 - CONCLUSION: Negative exam. Bladder is mainly decompressed. Victor Manuel Cervantes MD Chest X-Ray 01/22/18 0911 Signed Impressions: Service Date/Time: Monday, January 22, 2018 09:14 - CONCLUSION: Examination quality less than optimal secondary to patient body habitus. Given the technique, no acute finding is seen. Thom Ghotra MD PHYSICAL EXAM: GENERAL: Alert and oriented, no acute distress. HEENT: Pupils reactive to light. Extraocular movements intact. No icterus. NECK: Supple without adenopathy. No swelling. LUNGS: Clear decreased breath sounds. HEART: Regular S1 and S2. No audible murmurs rubs or gallops. ABDOMEN: Obese, large abdominal girth. Soft, decreased bowel sounds. EXTREMITIES: Markedly decreased erythema of the left lower extremity. Dry ulcers 3 at the left lower extremity. 1 dry ulcer at the right foot. Many raised tiny nonerythematous areas on the skin. Excoriations of the upper extremities. SKIN: No diffuse rash. NEUROLOGIC: Nonfocal. PSYCH: Calm and cooperative. Assessment and Plan Cellulitis of the left lower extremity. Culture growing group A strep and MRSA. Leukocytosis. Acute kidney disease. Recommendation: Continue Daptomycin for another couple of days and then switch to p.o. Doxycycline for another 5 days. Please call if further input is needed. I will sign off now. Jan Steward MD January 26, 2018 18:19
[2018-01-27] VITALS (15 sets, daily range): BP systolic 121–167; BP diastolic 50–82; PULSE 66–102; RESP 22–41; TEMP 97.2–98.1; O2SAT 91–99
[2018-01-27] MEDS: CHLORHEXIDINE GLUCONATE 2 % 1 PACK (2 CLOTHS)(taper/protocol) TOPICAL SCH (04:00)
[2018-01-27] MEDS: SODIUM CHLOR 0.9% 1000 ML INJ 1,000 ML IV SCH ×3 (04:39→17:40)
[2018-01-27 05:43] LABS: HEMATOCRIT 30.1 % (35.0-46.0); HEMOGLOBIN 9.6 GM/DL (11.6-15.3); MEAN CELL VOLUME 86.7 FL (80.0-100.0); MEAN CORPUSCULAR HEMOGLOBIN 27.5 PG (27.0-34.0); MEAN CORPUSCULAR HGB CONC 31.8 % (32.0-36.0); MEAN PLATELET VOLUME 8.4 FL (7.0-11.0); PLATELET COUNT 262 TH/MM3 (150-450); RED BLOOD COUNT 3.47 MIL/MM3 (4.00-5.30); WHITE BLOOD COUNT 15.1 TH/MM3 (4.0-11.0)
[2018-01-27 05:52] LABS: CALCIUM 8.6 MG/DL (8.5-10.1)
[2018-01-27 05:53] LABS: BICARBONATE 23.9 MEQ/L (21.0-32.0); MAGNESIUM 2.7 MG/DL (1.5-2.5)
[2018-01-27 05:56] LABS: CREATININE 1.4 MG/DL (0.50-1.00)
[2018-01-27] MEDS: DAPTOmycin INJ 900 MG in SODIUM CHLORIDE 0.9% INJ 100 ML IV SCH (06:36)
[2018-01-27] MEDS: HEPARIN SODIUM - SQ 10,000 UNITS/ML VIAL SQ SCH ×3 (06:36→21:43)
[2018-01-27] MEDS: RESP: ALBUTEROL 2.5 MG/IPRATROPIUM 0.5 MG NEB (PRN) NEB ×2 (08:00→15:58)
[2018-01-27] MEDS: INSULIN ASPART SUPPLEMENTAL SCALE SQ SCH ×4 (08:00→21:42)
[2018-01-27] MEDS: INSULIN ASPART 1,000 UNITS/10 ML VIAL SQ SCH ×3 (08:00→17:00)
[2018-01-27] MEDS: DOCUSATE SODIUM 50 MG/SENNA 8.6 MG TAB PO SCH ×2 (09:00→21:00)
[2018-01-27] MEDS: SODIUM CHLORIDE 0.9% FLUSH 10 ML FLUSH IV FLUSH SCH ×2 (09:00→21:00)
[2018-01-27] MEDS: BUDESONIDE-FORMOTEROL 160/4.5 MCG INHALER INH SCH ×3 (09:00→21:42)
[2018-01-27] MEDS: INSULIN DETEMIR 100 UNITS/ML VIAL SQ SCH ×2 (09:00→21:42)
--- NOTE | 2018-01-27 14:05 | HHI.PR ---
Subjective Remarks The patient was sitting up in a chair. She said she was ambulating minimally. She says that her diaper is soaked. She wanted to know when she should go back to work. She was waiting for her lunch. Discussed with nursing. Objective Vitals Vital Signs Date Time Temp Pulse Resp B/P (MAP) Pulse Ox O2 Delivery O2 Flow Rate FiO2 01/27/18 12:00 100 25 167/50 (89) 93 01/27/18 11:00 88 29 91 01/27/18 10:00 94 26 94 01/27/18 09:00 86 41 96 01/27/18 08:07 94 21 01/27/18 08:00 68 22 128/60 (82) 99 01/27/18 07:00 Room Air 01/27/18 06:00 66 22 98 01/27/18 04:50 98 30 01/27/18 04:00 97.2 68 22 121/82 (95) 98 01/27/18 02:05 98 30 01/27/18 00:00 98.1 74 22 152/63 (92) 98 01/26/18 23:00 98 30 01/26/18 22:48 96 Nasal Cannula 2.00 01/26/18 21:32 90 25 156/65 (95) 99 01/26/18 20:00 98.0 90 28 164/90 (114) 99 01/26/18 19:54 98 Nasal Cannula 2.00 01/26/18 16:02 94 31 99 01/26/18 15:00 98.0 96 28 156/68 (97) 97 I/O 01/26/18 01/26/18 01/26/18 01/27/18 01/27/18 01/27/18 07:00 15:00 23:00 07:00 15:00 23:00 Intake Total 2420 ml 820 ml 4120 ml Output Total 1200 ml 2260 ml 1600 ml Balance 1220 ml -1440 ml 2520 ml Intake Oral 720 ml 820 ml 620 ml IV Total 1700 ml 3500 ml Output Urine Total 1200 ml 2260 ml 1600 ml # Bowel Movements 0 1 Result Diagram: 01/27/18 0525 01/27/18 0525 Imaging Last Impressions Renal Ultrasound 01/24/18 0000 Signed Impressions: Service Date/Time: Wednesday, January 24, 2018 13:57 - CONCLUSION: Negative exam. Bladder is mainly decompressed. Victor Manuel Cervantes MD Chest X-Ray 01/22/18 0911 Signed Impressions: Service Date/Time: Monday, January 22, 2018 09:14 - CONCLUSION: Examination quality less than optimal secondary to patient body habitus. Given the technique, no acute finding is seen. Thom Ghotra MD Objective Remarks GENERAL: No distress. SKIN: Left lower extremity erythema and swelling improving. HEAD: Atraumatic. Normocephalic. No temporal or scalp tenderness. EYES: Pupils equal round and reactive. Extraocular motions intact. No scleral icterus. No injection or drainage. ENT: Nose without bleeding, purulent drainage or septal hematoma. Throat without erythema, tonsillar hypertrophy or exudate. Uvula midline. Airway patent. NECK: Trachea midline. No JVD or lymphadenopathy. Supple, nontender, no meningeal signs. CARDIOVASCULAR: Tachycardic without murmurs, gallops, or rubs. RESPIRATORY: Wheezing improved. GASTROINTESTINAL: Abdomen soft, mildly tender, nondistended. No hepato- splenomegaly, or palpable masses. No guarding. MUSCULOSKELETAL: Extremities without clubbing, cyanosis, or edema. Left lower extremity tenderness over area of cellulitis. NEUROLOGICAL: Awake and alert. Cranial nerves II through XII intact. Motor and sensory grossly within normal limits. Five out of 5 muscle strength in all muscle groups. Normal speech. PSYCH: Calm. A/P Assessment and Plan Severe sepsis/ Cellulitis The patient presented with leukocytosis and fever up to 105.4. She has cellulitis of the left lower extremity and acute respiratory failure. Her lactic acid level is at 3. Infectious disease consult appreciated. Culture growing MRSA and group A beta strep. - antibiotics changed to IV daptomycin per ID. Will likely be able to change to po doxycycline in 1-2 days. - Continue IV fluids. Acute respiratory failure The pt was tachypneic on presentation. Chest x-ray without acute process. Has a history of untreated JAS and childhood asthma. Pulmonology consult appreciated. - BiPAP as needed. - follow up with pulmonology. - standing nebs. - incentive spirometry. - encourage ambulation. - walk test prior to discharge. DM A1c 7.7%. - insulin sliding scale. - increase Levemir. Continue short acting with meals. - wean steroids as tolerated. - ems educator consult appreciated. Acute renal failure Possibly exacerbated by antibiotics. Renal US negative. FENa indicates prerenal etiology. Improving. - IVFs. - follow BMP and avoid nephrotoxins. - d/c cefazolin. PPx: Heparin Bang Jimenez DO January 27, 2018 14:05
--- NOTE | 2018-01-27 18:08 | HHI.PR ---
Subjective Remarks Sleeping today. Has some weakness and stood and walked with help. Used BIPAP last nite. Room air sat 95. Skin cellulitis is improving Will need a Sleep test.Will Arrange home CPAP. Objective Vital Signs Date Time Temp Pulse Resp B/P (MAP) Pulse Ox O2 Delivery O2 Flow Rate FiO2 01/27/18 16:00 100 123/70 (87) 93 01/27/18 12:00 100 25 167/50 (89) 93 01/27/18 11:00 88 29 91 01/27/18 10:00 94 26 94 01/27/18 09:00 86 41 96 01/27/18 08:07 94 21 01/27/18 08:00 68 22 128/60 (82) 99 01/27/18 07:00 Room Air 01/27/18 06:00 66 22 98 01/27/18 04:50 98 30 01/27/18 04:00 97.2 68 22 121/82 (95) 98 01/27/18 02:05 98 30 01/27/18 00:00 98.1 74 22 152/63 (92) 98 01/26/18 23:00 98 30 01/26/18 22:48 96 Nasal Cannula 2.00 01/26/18 21:32 90 25 156/65 (95) 99 01/26/18 20:00 98.0 90 28 164/90 (114) 99 01/26/18 19:54 98 Nasal Cannula 2.00 I/O 01/26/18 01/26/18 01/26/18 01/27/18 01/27/18 01/27/18 07:00 15:00 23:00 07:00 15:00 23:00 Intake Total 2420 ml 820 ml 4120 ml Output Total 1200 ml 2260 ml 1600 ml Balance 1220 ml -1440 ml 2520 ml Intake Oral 720 ml 820 ml 620 ml IV Total 1700 ml 3500 ml Output Urine Total 1200 ml 2260 ml 1600 ml # Bowel Movements 0 1 Result Diagram: 01/27/18 0525 01/27/18 0525 Objective Remarks GENERAL: This is a obese, young white female who is awake . HEENT: Head is normocephalic. Pupils are reactive. Sclerae clear. Throat is clear . Nasal mucosa is clear.Facial bug bite lesions healing NECK: Supple. No bruits or thyroid enlargement, no lymphadenopathy. CHEST: Decreased excursions. Occasional wheezes in the upper lung rachel. No crackles on either side. HEART: The heart sounds are regular S1 and S2 with no murmur. ABDOMEN: Soft, obese without masses. No organomegaly. EXTREMITIES: Ulcerated areas over the skin with cellulitis in the left leg healing. Has 1 + edema. The abdomen is obese and nontender with no organomegaly. NEUROLOGIC: The patient is awake, . Reflexes 1+ with no gross motor deficits. Assessment and Plan Assessment and Plan ASSESSMENT AND PLAN: 1. Sepsis with cellulitis and skin ulcerations of the lower extremities. 2. Obstructive sleep apnea syndrome. 3. Asthma with bronchitis. 4. Hyperglycemia. 5. Extreme obesity Plan: 1. Continue antibiotics per ID 2. Nebs qid PRN , duoneb 3. BiPAP at HS 12/5 CM, 30 % FIO2 4. Will arrange home CPAP at 10 CM pressure 5. Up with help 6. Sleep study as OP. 7. DVT prophylaxis 8. Will arrange home o2. Palma Duran MD January 27, 2018 18:07
[2018-01-28] VITALS (19 sets, daily range): BP systolic 127–190; BP diastolic 58–90; PULSE 78–100; RESP 21–32; TEMP 98.2–99.3; O2SAT 94–100
[2018-01-28] MEDS: CHLORHEXIDINE GLUCONATE 2 % 1 PACK (2 CLOTHS)(taper/protocol) TOPICAL SCH (00:28)
[2018-01-28] MEDS: SODIUM CHLOR 0.9% 1000 ML INJ 1,000 ML IV SCH ×5 (01:48→22:12)
[2018-01-28 05:26] LABS: HEMATOCRIT 28.5 % (35.0-46.0); MEAN CELL VOLUME 86.3 FL (80.0-100.0); MEAN CORPUSCULAR HEMOGLOBIN 27.3 PG (27.0-34.0); MEAN CORPUSCULAR HGB CONC 31.6 % (32.0-36.0); MEAN PLATELET VOLUME 8.7 FL (7.0-11.0); PLATELET COUNT 255 TH/MM3 (150-450); RED CELL DISTRIBUTION WIDTH 13.6 % (11.6-17.2); WHITE BLOOD COUNT 13.8 TH/MM3 (4.0-11.0)
[2018-01-28] MEDS: HEPARIN SODIUM - SQ 10,000 UNITS/ML VIAL SQ SCH ×3 (05:35→22:11)
[2018-01-28] MEDS: DAPTOmycin INJ 900 MG in SODIUM CHLORIDE 0.9% INJ 100 ML IV SCH (05:35)
[2018-01-28 05:37] LABS: BICARBONATE 25.6 MEQ/L (21.0-32.0); CALCIUM 8.5 MG/DL (8.5-10.1); CREATININE 1.3 MG/DL (0.50-1.00); MAGNESIUM 2.2 MG/DL (1.5-2.5)
[2018-01-28] MEDS: INSULIN ASPART SUPPLEMENTAL SCALE SQ SCH ×4 (08:00→20:23)
[2018-01-28] MEDS: RESP: ALBUTEROL 2.5 MG/IPRATROPIUM 0.5 MG NEB (PRN) NEB ×2 (08:19→22:02)
[2018-01-28] MEDS: DOCUSATE SODIUM 50 MG/SENNA 8.6 MG TAB PO SCH ×2 (08:55→20:24)
[2018-01-28] MEDS: INSULIN DETEMIR 100 UNITS/ML VIAL SQ SCH ×2 (08:55→20:23)
[2018-01-28] MEDS: INSULIN ASPART 1,000 UNITS/10 ML VIAL SQ SCH ×3 (08:55→17:40)
[2018-01-28] MEDS: SODIUM CHLORIDE 0.9% FLUSH 10 ML FLUSH IV FLUSH SCH ×2 (08:56→20:23)
--- NOTE | 2018-01-28 13:24 | PD.WCN.NOT ---
Wound Consult Description: Wound consult ordered by for wound management. Communicated with: Anjana KIM ICU [facility], Recommendation: 1. Encourage patient to shower/sponge bathe daily with a antibacterial soap.Avoid itching or picking at bite sites. 2. Apply lidocaine/hydrocortisone 50/50 mix to effected extremities BID. 3. Reconsult wound care if needed Additional Information: Patient was seen today in ICU [facility] by resume writer for wound management.Patient is alert and oriented x4.Patient has multiple areas of excoriation to upper and lower extremities due to active case of bed bugs in which she has not been able to stop scratching and itching bite sites.Bilateral upper extremity excoriation sites are dry and healing.no signs or symptoms of infection noted.Left lower extremity has 3 dry unroofed bullas in which are healing by primary intention.LLE is red warm to touch and patient states very tender but is doing much better since admission.All areas cleansed with normal saline pat dry.Order placed for lidocaine 4% mixed 50/50 with hydrocortisone and nurse Anjana will apply to effected areas when available.Patient had no further questions or concern upon writers departure. Dixie Galvan [facility] January 28, 2018 13:24
--- NOTE | 2018-01-28 14:29 | HHI.PR ---
Subjective Remarks The patient was resting in bed. She said that her breathing was worse today. She said her pain in her leg was better. She said she has her period, and if the first time she has had it for a couple of years. Discussed with nursing. Objective Vitals Vital Signs Date Time Temp Pulse Resp B/P (MAP) Pulse Ox O2 Delivery O2 Flow Rate FiO2 01/28/18 08:21 94 21 01/28/18 08:00 98.7 96 30 168/86 (113) 94 01/28/18 08:00 95 Nasal Cannula 3.00 01/28/18 07:00 95 Bi-Pap 30 01/28/18 05:00 82 26 140/69 (92) 98 01/28/18 04:19 96 30 01/28/18 03:00 98.4 78 25 127/65 (85) 98 01/28/18 01:39 97 30 01/28/18 01:00 82 25 144/58 (86) 97 01/28/18 00:00 98.6 88 26 144/63 (90) 98 01/27/18 23:30 96 Bi-Pap 30 01/27/18 23:29 97 30 01/27/18 20:25 97 Nasal Cannula 3.00 01/27/18 20:00 97 Nasal Cannula 2.00 01/27/18 20:00 98.0 102 24 136/63 (87) 96 01/27/18 16:00 100 123/70 (87) 93 I/O 01/27/18 01/27/18 01/27/18 01/28/18 01/28/18 01/28/18 07:00 15:00 23:00 07:00 15:00 23:00 Intake Total 4120 ml 100 ml 800 ml 4420 ml Output Total 1600 ml 1100 ml 1500 ml Balance 2520 ml 100 ml -300 ml 2920 ml Intake Oral 620 ml 800 ml 620 ml IV Total 3500 ml 100 ml 3800 ml Output Urine Total 1600 ml 1100 ml 1500 ml # Bowel Movements 1 2 0 Result Diagram: 01/28/18 0458 01/28/18 0458 Imaging Last Impressions Renal Ultrasound 01/24/18 0000 Signed Impressions: Service Date/Time: Wednesday, January 24, 2018 13:57 - CONCLUSION: Negative exam. Bladder is mainly decompressed. Victor Manuel Cervantes MD Chest X-Ray 01/22/18 0911 Signed Impressions: Service Date/Time: Monday, January 22, 2018 09:14 - CONCLUSION: Examination quality less than optimal secondary to patient body habitus. Given the technique, no acute finding is seen. Thom Ghotra MD Objective Remarks GENERAL: No distress. SKIN: Left lower extremity with edema and improving tenderness. HEAD: Atraumatic. Normocephalic. No temporal or scalp tenderness. EYES: Pupils equal round and reactive. Extraocular motions intact. No scleral icterus. No injection or drainage. ENT: Nose without bleeding, purulent drainage or septal hematoma. Throat without erythema, tonsillar hypertrophy or exudate. Uvula midline. Airway patent. NECK: Trachea midline. No JVD or lymphadenopathy. Supple, nontender, no meningeal signs. CARDIOVASCULAR: Tachycardic without murmurs, gallops, or rubs. RESPIRATORY: Diffuse wheezing. GASTROINTESTINAL: Abdomen soft, mildly tender, nondistended. No hepato- splenomegaly, or palpable masses. No guarding. MUSCULOSKELETAL: Extremities without clubbing, cyanosis, or edema. Left lower extremity tenderness over area of cellulitis. NEUROLOGICAL: Awake and alert. Cranial nerves II through XII intact. Motor and sensory grossly within normal limits. Five out of 5 muscle strength in all muscle groups. Normal speech. PSYCH: Calm. A/P Assessment and Plan Severe sepsis/ Cellulitis The patient presented with leukocytosis and fever up to 105.4. She has cellulitis of the left lower extremity and acute respiratory failure. Her lactic acid level is at 3. Infectious disease consult appreciated. Culture growing MRSA and group A beta strep. - antibiotics changed to IV daptomycin per ID. Can be changed to doxycycline at the time of discharge. - Continue IV fluids. Acute respiratory failure The pt was tachypneic on presentation. Chest x-ray without acute process. Has a history of untreated JAS and childhood asthma. Pulmonology consult appreciated. Still wheezing. - BiPAP as needed. - follow up with pulmonology. - standing nebs. - incentive spirometry. - encourage ambulation. - walk test prior to discharge. - resume IV Solumedrol. - repeat CXR 01/28. DM A1c 7.7%. Well controlled today. - insulin sliding scale. - continue Levemir. Continue short acting with meals. - wean steroids as tolerated. - community health educator consult appreciated. Acute renal failure Possibly exacerbated by antibiotics. Renal US negative. FENa indicates prerenal etiology. Improving. - IVFs. D/c in AM if creatinine continues to improve. - follow BMP and avoid nephrotoxins. - d/c cefazolin. PPx: Heparin Discharge Planning D/c with [facility] when pt is ambulating better and respiratory status is improved. Bang Jimenez DO January 28, 2018 14:29
[2018-01-28] MEDS ORDERED: methylPREDNISolone SOD SUCC 40 MG/1 ML VIAL IV PUSH SCH (15:00)
[2018-01-28] MEDS ORDERED: PHARMACY ORDERED LAB ONE (15:45)
--- NOTE | 2018-01-28 17:28 | RADRPT ---
EXAM DATE/TIME: 01/28/2018 17:03 [place] COMPARISON: CHEST SINGLE AP, January 22, 2018, 9:14. INDICATIONS : Short of breath. MEDICAL HISTORY : None. SURGICAL HISTORY : None. ENCOUNTER: Initial ACUITY: 2 weeks PAIN SCORE: 0/10 LOCATION: Bilateral chest FINDINGS: No change from prior. Symmetric bilateral reticulonodular parenchymal disease. Mild cardiac enlargeme nt. No significant effusion. CONCLUSION: Stable abnormal chest appearance Thom Bailey MD on January 28, 2018 at 17:21 Board Certified Radiologist. This report was verified electronically.
--- NOTE | 2018-01-28 18:03 | HHI.PR ---
Subjective Remarks Better today. Has some weakness in legs but was up. Used BIPAP last nite. Room air sat 95. Skin cellulitis is improving Will need a Sleep test. Will Arrange home CPAP for now. Objective Vital Signs Date Time Temp Pulse Resp B/P (MAP) Pulse Ox O2 Delivery O2 Flow Rate FiO2 01/28/18 14:00 96 26 168/74 (105) 99 01/28/18 13:58 98 32 188/90 (122) 98 01/28/18 13:51 100 21 190/78 (115) 99 01/28/18 13:00 98.2 88 26 175/73 (107) 99 01/28/18 08:21 94 21 01/28/18 08:00 98.7 96 30 168/86 (113) 94 01/28/18 08:00 95 Nasal Cannula 3.00 01/28/18 07:00 95 Bi-Pap 30 01/28/18 05:00 82 26 140/69 (92) 98 01/28/18 04:19 96 30 01/28/18 03:00 98.4 78 25 127/65 (85) 98 01/28/18 01:39 97 30 01/28/18 01:00 82 25 144/58 (86) 97 01/28/18 00:00 98.6 88 26 144/63 (90) 98 01/27/18 23:30 96 Bi-Pap 30 01/27/18 23:29 97 30 01/27/18 20:25 97 Nasal Cannula 3.00 01/27/18 20:00 97 Nasal Cannula 2.00 01/27/18 20:00 98.0 102 24 136/63 (87) 96 I/O 01/27/18 01/27/18 01/27/18 01/28/18 01/28/18 01/28/18 07:00 15:00 23:00 07:00 15:00 23:00 Intake Total 4120 ml 100 ml 800 ml 4420 ml Output Total 1600 ml 1100 ml 1500 ml Balance 2520 ml 100 ml -300 ml 2920 ml Intake Oral 620 ml 800 ml 620 ml IV Total 3500 ml 100 ml 3800 ml Output Urine Total 1600 ml 1100 ml 1500 ml # Bowel Movements 1 2 0 Result Diagram: 01/28/18 0458 01/28/18 0458 Objective Remarks GENERAL: This is a obese, young white female who is awake . HEENT: Head is normocephalic. Pupils are reactive. Sclerae clear. Throat is clear . Nasal mucosa is clear.Facial bug bite lesions healing NECK: Supple. No bruits or thyroid enlargement, no lymphadenopathy. CHEST: Decreased excursions. Occasional wheezes in the upper lung rachel. No crackles on either side. HEART: The heart sounds are regular S1 and S2 with no murmur. ABDOMEN: Soft, obese without masses. No organomegaly. EXTREMITIES: Ulcerated areas over the skin with cellulitis in the left leg healing. Has 1 + edema. The abdomen is obese and nontender with no organomegaly. NEUROLOGIC: The patient is awake, . Reflexes 1+ with no gross motor deficits. Assessment and Plan Assessment and Plan ASSESSMENT AND PLAN: 1. Sepsis with cellulitis and skin ulcerations of the lower extremities. 2. Obstructive sleep apnea syndrome. 3. Asthma with bronchitis. 4. Hyperglycemia. 5. Extreme obesity Plan: 1. Continue antibiotics per ID 2. Nebs qid PRN , duoneb 3. BiPAP at HS 12/5 CM, 30 % FIO2 4. Will arrange home CPAP at 10 CM pressure 5. Up with help 6. Sleep study as OP. 7. DVT prophylaxis 8. Will arrange home o2 if 6 min walk is Positive. Palma Duran MD January 28, 2018 18:03
[2018-01-28] MEDS: BUDESONIDE-FORMOTEROL 160/4.5 MCG INHALER INH SCH (20:22)
[2018-01-28] MEDS: predniSONE 10 MG TAB PO SCH (20:23)
[2018-01-29] VITALS (18 sets, daily range): BP systolic 133–178; BP diastolic 59–82; PULSE 68–98; RESP 20–36; TEMP 98.2–99.2; O2SAT 91–99
[2018-01-29] MEDS: CHLORHEXIDINE GLUCONATE 2 % 1 PACK (2 CLOTHS)(taper/protocol) TOPICAL SCH (03:31)
[2018-01-29] MEDS: HEPARIN SODIUM - SQ 10,000 UNITS/ML VIAL SQ SCH ×3 (05:21→21:13)
[2018-01-29] MEDS: SODIUM CHLOR 0.9% 1000 ML INJ 1,000 ML IV SCH (05:21)
[2018-01-29] MEDS: DAPTOmycin INJ 900 MG in SODIUM CHLORIDE 0.9% INJ 100 ML IV SCH (05:21)
[2018-01-29 06:22] LABS: HEMATOCRIT 29.5 % (35.0-46.0); HEMOGLOBIN 9.6 GM/DL (11.6-15.3); MEAN CELL VOLUME 85.9 FL (80.0-100.0); MEAN CORPUSCULAR HGB CONC 32.6 % (32.0-36.0); MEAN PLATELET VOLUME 8.3 FL (7.0-11.0); PLATELET COUNT 318 TH/MM3 (150-450); RED BLOOD COUNT 3.43 MIL/MM3 (4.00-5.30); RED CELL DISTRIBUTION WIDTH 13.9 % (11.6-17.2); WHITE BLOOD COUNT 10.2 TH/MM3 (4.0-11.0)
[2018-01-29 06:32] LABS: BICARBONATE 27.2 MEQ/L (21.0-32.0); CALCIUM 8.7 MG/DL (8.5-10.1); MAGNESIUM 2.1 MG/DL (1.5-2.5)
[2018-01-29 06:36] LABS: CREATININE 1.2 MG/DL (0.50-1.00)
[2018-01-29] MEDS: INSULIN ASPART SUPPLEMENTAL SCALE SQ SCH ×4 (08:00→21:13)
[2018-01-29] MEDS: BUDESONIDE-FORMOTEROL 160/4.5 MCG INHALER INH SCH ×2 (08:35→19:47)
[2018-01-29] MEDS: guaiFENesin/CODEINE SYRUP 200 MG/20 MG/10 ML CUP PO PRN ×2 (08:35→21:13)
[2018-01-29] MEDS: INSULIN ASPART 1,000 UNITS/10 ML VIAL SQ SCH ×2 (08:35→12:00)
[2018-01-29] MEDS: SODIUM CHLORIDE 0.9% FLUSH 10 ML FLUSH IV FLUSH SCH ×2 (08:36→19:47)
[2018-01-29] MEDS: predniSONE 10 MG TAB PO SCH ×2 (08:36→19:47)
[2018-01-29] MEDS: DOCUSATE SODIUM 50 MG/SENNA 8.6 MG TAB PO SCH ×2 (08:36→19:48)
[2018-01-29] MEDS: INSULIN DETEMIR 100 UNITS/ML VIAL SQ SCH ×2 (08:36→19:49)
[2018-01-29] MEDS ORDERED: OXYGENDME NAS.CANULA (14:16)
[2018-01-29] MEDS ORDERED: CPMMACHINE (14:16)
[2018-01-29] MEDS ORDERED: ONDANSETRON ODT 4 MG TAB PO PRN (14:30)
--- NOTE | 2018-01-29 14:31 | HHI.PR ---
Subjective Remarks Patient seen and examined today for follow-up on respiratory failure, cellulitis , sepsis. Patient is doing much better. She is down to 2 L per nasal cannula. Using CPAP at night without any complications. Wounds appear to be doing much better. Patient significantly improving. Could anticipate discharge as early as tomorrow if able to arrange DME equipment, however due to the patient' s financial status this is going to be a barrier for discharge. Patient vital signs are stable. Patient remains afebrile. Objective Vitals Vital Signs Date Time Temp Pulse Resp B/P (MAP) Pulse Ox O2 Delivery O2 Flow Rate FiO2 01/29/18 12:00 98.3 86 27 162/77 (105) 99 01/29/18 08:00 97 Nasal Cannula 3.00 01/29/18 08:00 98.2 88 31 166/72 (103) 98 01/29/18 07:30 97 Nasal Cannula 2.00 01/29/18 07:00 68 01/29/18 07:00 98 Bi-Pap 30 01/29/18 05:25 99 30 01/29/18 03:00 78 01/29/18 03:00 78 20 98 01/29/18 02:30 97 30 01/29/18 02:00 70 20 95 01/29/18 02:00 70 01/29/18 01:00 78 20 98 01/29/18 01:00 78 01/29/18 00:00 74 01/28/18 23:32 Bi-Pap 30 01/28/18 23:30 98 30 01/28/18 23:00 93 01/28/18 23:00 99.3 93 27 187/79 (115) 97 01/28/18 22:00 88 01/28/18 22:00 96 Nasal Cannula 2.00 01/28/18 22:00 88 24 97 01/28/18 21:00 90 24 99 01/28/18 21:00 90 01/28/18 20:00 92 01/28/18 20:00 92 24 97 01/28/18 20:00 97 Nasal Cannula 2.00 01/28/18 19:00 95 01/28/18 19:00 99.2 96 24 154/82 (106) 100 01/28/18 17:00 98.2 90 27 160/76 (104) 100 I/O 01/28/18 01/28/18 01/28/18 01/29/18 01/29/18 01/29/18 07:00 15:00 23:00 07:00 15:00 23:00 Intake Total 4420 ml 1960 ml 480 ml Output Total 1500 ml 2700 ml 3150 ml Balance 2920 ml -740 ml -2670 ml Intake Oral 620 ml 960 ml 480 ml IV Total 3800 ml 1000 ml Output Urine Total 1500 ml 2700 ml 3150 ml # Bowel Movements 0 2 1 Result Diagram: 01/29/18 0603 01/29/18 0603 Imaging Last Impressions Chest X-Ray 01/28/18 0000 Signed Impressions: Service Date/Time: Sunday, January 28, 2018 17:03 - CONCLUSION: Stable abnormal chest appearance Thom Bailey MD Renal Ultrasound 01/24/18 0000 Signed Impressions: Service Date/Time: Wednesday, January 24, 2018 13:57 - CONCLUSION: Negative exam. Bladder is mainly decompressed. Victor Manuel Cervantes MD Objective Remarks GENERAL: Well-developed, morbidly obese with BMI 80.8, in no acute distress. alert and orientated HEENT: Head is normocephalic without any lesions or masses noted. Facial features are symmetric. Eyes: Extraocular muscles are intact. Conjunctivae were clear. NECK: Supple without any masses. Trachea midline no deviation. No JVD, CARDIAC: Regular rhythm, regular rate. S1/S2 are heard. No murmurs gallops or rubs. LUNGS: Diminished air movement bilaterally. No wheeze, rhonchi or rales. No use of accessory muscles on inspiration or expiration. ABDOMEN: Soft, nontender. Nondistended. Bowel sounds heard in all 4 quadrants. No organomegaly or masses. Negative rebound, negative guarding EXTREMITIES: No edema, pulses are equal bilaterally. No cyanosis or clubbing, lower extremities had multiple excoriations and wounds without any significant signs of infection, exudates NEUROLOGY: Mood and affect appear appropriate. Cranial nerves II through XII grossly intact. Moving all extremities, speech is clear Urinary Catheter: No Vascular Central Line Catheter: No A/P Assessment and Plan Severe sepsis due to cellulitis, resolved -Patient no longer with septic criteria. Patient remains afebrile -Infectious disease is following the patient, recommending discontinuation of IV antibiotics and continuation of doxycycline -Continue doxycycline 100 mg twice daily for 5 days Acute hypoxic respiratory failure -Likely secondary from history of asthma, untreated obstructive sleep apnea, obesity hypoperfusion syndrome -Patient is weaning down and is on oxygen 2 L per nasal cannula at this time -Patient using CPAP at night for respiratory support -Case management consulted to arrange for CPAP upon discharge -Continue duo nebs -Patient is being weaned off of p.o. steroids -Continue Symbicort -Obtain home oxygen walk study -Incentive spirometry Diabetes -Hemoglobin A1c 7.7 -Levemir 20 units daily -Sliding scale insulin patient has not required 2 units of insulin in the last 24 hours -Discontinue aspart at meals insulin sliding scale. Acute renal failure -Possibly exacerbated by antibiotics. -Renal US negative. FENa indicates prerenal etiology. Improving. Continue monitor renal function DVT prevention -Subcutaneous heparin Discharge Planning Anticipate discharge planning tomorrow if Case management can arrange for DME, oxygen, CPAP Chris Johnson January 29, 2018 14:31
[2018-01-29] MEDS: DOXYCYCLINE HYCLATE 100 MG CAP PO SCH (19:48)
[2018-01-29] MEDS: RESP: ALBUTEROL 2.5 MG/IPRATROPIUM 0.5 MG NEB (SCH) NEB (20:21)
[2018-01-30] VITALS (16 sets, daily range): BP systolic 127–166; BP diastolic 48–88; PULSE 68–94; RESP 22–33; TEMP 97.8–99.2; O2SAT 91–99
[2018-01-30] MEDS: HEPARIN SODIUM - SQ 10,000 UNITS/ML VIAL SQ SCH ×3 (05:23→21:26)
[2018-01-30 06:33] LABS: CREATININE 1.2 MG/DL (0.50-1.00)
[2018-01-30] MEDS: RESP: ALBUTEROL 2.5 MG/IPRATROPIUM 0.5 MG NEB (SCH) NEB ×3 (07:56→19:44)
[2018-01-30] MEDS: INSULIN ASPART SUPPLEMENTAL SCALE SQ SCH ×4 (08:00→21:00)
[2018-01-30] MEDS: DOXYCYCLINE HYCLATE 100 MG CAP PO SCH ×2 (09:05→20:42)
[2018-01-30] MEDS: DOCUSATE SODIUM 50 MG/SENNA 8.6 MG TAB PO SCH ×2 (09:05→20:43)
[2018-01-30] MEDS: SODIUM CHLORIDE 0.9% FLUSH 10 ML FLUSH IV FLUSH SCH ×2 (09:05→20:42)
[2018-01-30] MEDS: INSULIN DETEMIR 100 UNITS/ML VIAL SQ SCH ×2 (09:05→21:00)
[2018-01-30] MEDS: predniSONE 10 MG TAB PO SCH ×2 (09:05→20:42)
[2018-01-30] MEDS: guaiFENesin/CODEINE SYRUP 200 MG/20 MG/10 ML CUP PO PRN (09:05)
[2018-01-30] MEDS: BUDESONIDE-FORMOTEROL 160/4.5 MCG INHALER INH SCH ×2 (09:06→20:41)
--- NOTE | 2018-01-30 13:13 | HHI.PR ---
Subjective Remarks Patient seen and examined today for follow-up on cellulitis, sepsis. Patient clinically stable at this time. Continue p.o. medication for treatment. Patient unable be discharged currently due to inability to obtain CPAP machine. Case management consulted to try to help arrange. Awaiting discharge planning per case management Objective Vitals Vital Signs Date Time Temp Pulse Resp B/P (MAP) Pulse Ox O2 Delivery O2 Flow Rate FiO2 01/30/18 12:14 98.8 01/30/18 12:00 98.8 86 25 94 01/30/18 10:00 94 01/30/18 08:15 90 33 140/86 (104) 91 01/30/18 08:00 78 01/30/18 08:00 92 Room Air 01/30/18 07:56 96 21 01/30/18 04:15 98.1 68 24 158/68 (98) 98 01/30/18 04:10 98 30 01/30/18 01:10 97 30 01/30/18 00:15 97.8 76 26 135/81 (99) 96 01/29/18 23:20 98 30 01/29/18 22:40 95 Nasal Cannula 1.00 01/29/18 22:30 88 Room Air 01/29/18 22:20 92 Room Air 01/29/18 22:10 89 Room Air 01/29/18 21:19 98 28 149/74 (99) 95 01/29/18 20:22 94 21 01/29/18 20:15 99.2 92 36 178/82 (114) 94 01/29/18 20:00 90 01/29/18 19:00 92 Room Air 01/29/18 16:00 98.2 94 29 133/59 (83) 93 01/29/18 15:30 82 26 91 01/29/18 15:00 79 I/O 01/29/18 01/29/18 01/29/18 01/30/18 01/30/18 01/30/18 07:00 15:00 23:00 07:00 15:00 23:00 Intake Total 480 ml 1000 ml 720 ml 480 ml Output Total 3150 ml 1800 ml 2700 ml Balance -2670 ml 1000 ml -1080 ml -2220 ml Intake Oral 480 ml 720 ml 480 ml IV Total 1000 ml Output Urine Total 3150 ml 1800 ml 2700 ml # Bowel Movements 1 2 0 Result Diagram: 01/29/18 0603 01/30/18 0550 Objective Remarks GENERAL: Well-developed, morbidly obese with BMI 80.8, in no acute distress. alert and orientated HEENT: Head is normocephalic without any lesions or masses noted. Facial features are symmetric. Eyes: Extraocular muscles are intact. Conjunctivae were clear. NECK: Supple without any masses. Trachea midline no deviation. No JVD, CARDIAC: Regular rhythm, regular rate. S1/S2 are heard. No murmurs gallops or rubs. LUNGS: Diminished air movement bilaterally. No wheeze, rhonchi or rales. No use of accessory muscles on inspiration or expiration. ABDOMEN: Soft, nontender. Nondistended. Bowel sounds heard in all 4 quadrants. No organomegaly or masses. Negative rebound, negative guarding EXTREMITIES: No edema, pulses are equal bilaterally. No cyanosis or clubbing, lower extremities had multiple excoriations and wounds without any significant signs of infection, exudates NEUROLOGY: Mood and affect appear appropriate. Cranial nerves II through XII grossly intact. Moving all extremities, speech is clear Urinary Catheter: No Vascular Central Line Catheter: No A/P Assessment and Plan Severe sepsis due to cellulitis, resolved -Patient no longer with septic criteria. Patient remains afebrile -Infectious disease is following the patient, recommending discontinuation of IV antibiotics and continuation of doxycycline -Continue doxycycline 100 mg twice daily for 5 days Acute hypoxic respiratory failure, resolved -Likely secondary from history of asthma, untreated obstructive sleep apnea, obesity hypoperfusion syndrome -Patient has been weaned off oxygen at this time. -Patient using CPAP at night for respiratory support -Regulatory And Compliance Technician with following the patient and indicates the patient cannot be discharged without a CPAP machine -Case management consulted to arrange for CPAP upon discharge -Continue duo nebs -Patient is being weaned off of p.o. steroids -Continue Symbicort -Home oxygen walk study indicates that patient does not require any oxygen -Incentive spirometry Diabetes -Hemoglobin A1c 7.7 -Levemir 20 units daily -Sliding scale insulin patient has not required 2 units of insulin in the last 24 hours -Discontinue aspart at meals insulin sliding scale. Acute renal failure, improving -Possibly exacerbated by antibiotics. -Renal US negative. FENa indicates prerenal etiology. Improving. Continue monitor renal function DVT prevention -Subcutaneous heparin Discharge Planning Discharge planning home once CPAP can be arranged for patient Chris Johnson January 30, 2018 13:13
[2018-01-31] VITALS (12 sets, daily range): BP systolic 129–184; BP diastolic 58–104; PULSE 62–94; RESP 22–37; TEMP 97.4–99.5; O2SAT 93–99
[2018-01-31] MEDS: HEPARIN SODIUM - SQ 10,000 UNITS/ML VIAL SQ SCH ×3 (06:38→21:24)
[2018-01-31] MEDS: INSULIN ASPART SUPPLEMENTAL SCALE SQ SCH ×4 (08:00→21:00)
[2018-01-31] MEDS: RESP: ALBUTEROL 2.5 MG/IPRATROPIUM 0.5 MG NEB (SCH) NEB ×3 (08:22→19:36)
[2018-01-31] MEDS: INSULIN DETEMIR 100 UNITS/ML VIAL SQ SCH ×2 (08:47→21:23)
[2018-01-31] MEDS: DOXYCYCLINE HYCLATE 100 MG CAP PO SCH ×2 (08:48→21:23)
[2018-01-31] MEDS: BUDESONIDE-FORMOTEROL 160/4.5 MCG INHALER INH SCH ×2 (08:48→21:24)
[2018-01-31] MEDS: predniSONE 10 MG TAB PO SCH ×2 (08:48→21:22)
[2018-01-31] MEDS: SODIUM CHLORIDE 0.9% FLUSH 10 ML FLUSH IV FLUSH SCH (08:48)
[2018-01-31] MEDS: DOCUSATE SODIUM 50 MG/SENNA 8.6 MG TAB PO SCH ×2 (08:48→21:00)
[2018-01-31] MEDS: ACETAMINOPHEN 325 MG TAB PO PRN (09:06)
[2018-01-31] MEDS ORDERED: CPAP (09:51)
--- NOTE | 2018-01-31 09:51 | HHI.PR ---
Subjective Remarks Patient seen and examined today for follow-up on cellulitis. Patient clinically stable at this time. Unfortunately patient has possible obesity hypoventilation syndrome, obstructive sleep apnea and malt roaster indicating the patient cannot go home without a CPAP. Patient unable to afford one at this time. After discussion with malt roaster, recommended consulting Dr. Hidalgo, to see if he would be successful in obtaining a CPAP machine for the patient so she can be discharged. Otherwise patient denies any new complaints. She is sitting in a chair without any oxygen resting comfortably. No new complaints vital signs are stable, patient remains afebrile Objective Vitals Vital Signs Date Time Temp Pulse Resp B/P (MAP) Pulse Ox O2 Delivery O2 Flow Rate FiO2 01/31/18 08:22 98 21 01/31/18 04:06 98 30 01/31/18 04:00 99.0 63 24 129/73 (91) 96 01/31/18 01:30 70 23 150/86 (107) 97 01/30/18 23:48 99 30 01/30/18 21:32 99.2 92 22 166/88 (114) 97 01/30/18 20:00 92 01/30/18 19:45 98 21 01/30/18 19:00 97 Room Air 01/30/18 16:00 84 94 01/30/18 12:38 90 31 127/48 (74) 93 01/30/18 12:14 98.8 01/30/18 12:00 98.8 86 25 94 01/30/18 10:00 94 I/O 01/30/18 01/30/18 01/30/18 01/31/18 01/31/18 01/31/18 07:00 15:00 23:00 07:00 15:00 23:00 Intake Total 480 ml Output Total 2700 ml 525 ml 1000 ml Balance -2220 ml -525 ml -1000 ml Intake Oral 480 ml Output Urine Total 2700 ml 525 ml 1000 ml # Bowel Movements 0 Result Diagram: 01/29/18 0603 01/30/18 0550 Objective Remarks GENERAL: Well-developed, morbidly obese with BMI 80.8, in no acute distress. alert and orientated HEENT: Head is normocephalic without any lesions or masses noted. Facial features are symmetric. Eyes: Extraocular muscles are intact. Conjunctivae were clear. NECK: Supple without any masses. Trachea midline no deviation. No JVD, CARDIAC: Regular rhythm, regular rate. S1/S2 are heard. No murmurs gallops or rubs. LUNGS: Diminished air movement bilaterally. No wheeze, rhonchi or rales. No use of accessory muscles on inspiration or expiration. ABDOMEN: Soft, nontender. Nondistended. Bowel sounds heard in all 4 quadrants. No organomegaly or masses. Negative rebound, negative guarding EXTREMITIES: No edema, pulses are equal bilaterally. No cyanosis or clubbing, lower extremities had multiple excoriations and wounds without any significant signs of infection, exudates NEUROLOGY: Mood and affect appear appropriate. Cranial nerves II through XII grossly intact. Moving all extremities, speech is clear Urinary Catheter: No Vascular Central Line Catheter: No A/P Assessment and Plan Severe sepsis due to cellulitis, resolved -Patient no longer with septic criteria. Patient remains afebrile -Infectious disease is following the patient, recommending discontinuation of IV antibiotics and continuation of doxycycline -Continue doxycycline 100 mg twice daily for 5 days (02/03/18) Acute hypoxic respiratory failure, resolved -Likely secondary from history of asthma, untreated obstructive sleep apnea, obesity hypoperfusion syndrome -Patient has been weaned off oxygen at this time. -Patient using CPAP at night for respiratory support -Yard Person with following the patient and indicates the patient cannot be discharged without a CPAP machine -Case management consulted to arrange for CPAP upon discharge -Discussed with malt roaster recommended consulting Dr. Hidalgo, to see if he can arrange CPAP machine for discharge -continue duo nebs -Patient is being weaned off of p.o. steroids -Continue Symbicort -Home oxygen walk study indicates that patient does not require any oxygen -Incentive spirometry Diabetes -Hemoglobin A1c 7.7 -Levemir 20 units daily -Sliding scale insulin patient has not required 2 units of insulin in the last 24 hours -Discontinue aspart at meals insulin sliding scale. Acute renal failure, improved -Possibly exacerbated by antibiotics. -Renal US negative. FENa indicates prerenal etiology. Improving. Continue monitor renal function DVT prevention -Subcutaneous heparin Discharge Planning Discharge planning home once CPAP can be arranged for patient Chris Johnson January 31, 2018 09:51
--- NOTE | 2018-01-31 12:09 | HHI.PR ---
Subjective Remarks Better today.Up in a chair Used BIPAP last nite. Room air sat 95. Skin cellulitis is better Will need a Sleep test. Will Arrange home CPAP and consult Dr quintero Objective Vital Signs Date Time Temp Pulse Resp B/P (MAP) Pulse Ox O2 Delivery O2 Flow Rate FiO2 01/31/18 08:22 98 21 01/31/18 08:00 98.4 66 22 133/93 (106) 95 01/31/18 08:00 62 01/31/18 08:00 98 Room Air 01/31/18 07:00 98 Bi-Pap 30 01/31/18 04:06 98 30 01/31/18 04:00 99.0 63 24 129/73 (91) 96 01/31/18 01:30 70 23 150/86 (107) 97 01/30/18 23:48 99 30 01/30/18 21:32 99.2 92 22 166/88 (114) 97 01/30/18 20:00 92 01/30/18 19:45 98 21 01/30/18 19:00 97 Room Air 01/30/18 16:00 84 94 01/30/18 12:38 90 31 127/48 (74) 93 01/30/18 12:14 98.8 I/O 01/30/18 01/30/18 01/30/18 01/31/18 01/31/18 01/31/18 07:00 15:00 23:00 07:00 15:00 23:00 Intake Total 480 ml Output Total 2700 ml 525 ml 1000 ml Balance -2220 ml -525 ml -1000 ml Intake Oral 480 ml Output Urine Total 2700 ml 525 ml 1000 ml # Bowel Movements 0 Result Diagram: 01/29/18 0603 01/30/18 0550 Objective Remarks GENERAL: This is a obese, young white female who is awake . HEENT: Head is normocephalic. Pupils are reactive. Sclerae clear. Throat is clear . Nasal mucosa is clear. NECK: Supple. No bruits or thyroid enlargement, no lymphadenopathy. CHEST: Decreased excursions. Occasional wheezes in the upper lung rachel. No crackles on either side. HEART: The heart sounds are regular S1 and S2 with no murmur. ABDOMEN: Soft, obese without masses. No organomegaly. EXTREMITIES: Ulcerated areas over the skin with cellulitis in the left leg healing. Has 2 + edema. The abdomen is obese and nontender with no organomegaly. NEUROLOGIC: The patient is awake, . Reflexes 1+ with no gross motor deficits. Assessment and Plan Assessment and Plan ASSESSMENT AND PLAN: 1. Sepsis with cellulitis and skin ulcerations of the lower extremities.resolved 2. Obstructive sleep apnea syndrome. 3. Asthma with bronchitis. 4. Hyperglycemia. 5. Extreme obesity Plan: 1. Continue antibiotics per ID 2. D/C Nebs and use ventolin HFA , 2 puffs tid prn 3. CPAP at HS 10 CM 4. Will arrange home CPAP at 10 CM pressure 5. Symbicort 160/4.5 mcg , 2 puffs BID 6. Sleep study as OP. 7. DVT prophylaxis 8. Will arrange consult with Palma Jenkins MD January 31, 2018 12:09
[2018-01-31] MEDS: guaiFENesin/DEXTROMETHORPHAN 200 MG/20 MG/10 ML CUP PO PRN (21:22)
[2018-02-01] VITALS (10 sets, daily range): BP systolic 131–151; BP diastolic 69–90; PULSE 74–98; RESP 22–31; TEMP 97.8–99.2; O2SAT 92–97
[2018-02-01 05:31] LABS: CREATININE 1.3 MG/DL (0.50-1.00)
[2018-02-01] MEDS: HEPARIN SODIUM - SQ 10,000 UNITS/ML VIAL SQ SCH ×3 (05:51→22:56)
[2018-02-01] MEDS: ACETAMINOPHEN 325 MG TAB PO PRN ×2 (05:53→22:57)
[2018-02-01] MEDS: INSULIN ASPART SUPPLEMENTAL SCALE SQ SCH ×3 (08:00→17:00)
[2018-02-01] MEDS: RESP: ALBUTEROL 2.5 MG/IPRATROPIUM 0.5 MG NEB (SCH) NEB ×3 (08:25→20:27)
[2018-02-01] MEDS: predniSONE 10 MG TAB PO SCH ×2 (09:15→19:43)
[2018-02-01] MEDS: guaiFENesin/DEXTROMETHORPHAN 200 MG/20 MG/10 ML CUP PO PRN ×2 (09:15→22:56)
[2018-02-01] MEDS: DOXYCYCLINE HYCLATE 100 MG CAP PO SCH ×2 (09:15→19:43)
[2018-02-01] MEDS: DOCUSATE SODIUM 50 MG/SENNA 8.6 MG TAB PO SCH (09:15)
[2018-02-01] MEDS: INSULIN DETEMIR 100 UNITS/ML VIAL SQ SCH ×2 (09:16→19:44)
[2018-02-01] MEDS: BUDESONIDE-FORMOTEROL 160/4.5 MCG INHALER INH SCH ×2 (09:16→19:43)
--- NOTE | 2018-02-01 12:16 | HHI.PR ---
Subjective Remarks Up in a chair. Walked in [place]. Used BIPAP last nite. Off o2 Skin cellulitis is better Will need a Sleep test. Will Arrange home CPAP and consult Dr quintero Objective Vital Signs Date Time Temp Pulse Resp B/P (MAP) Pulse Ox O2 Delivery O2 Flow Rate FiO2 02/01/18 10:00 78 02/01/18 08:26 94 21 02/01/18 08:00 98.0 82 31 145/70 (95) 93 02/01/18 08:00 82 02/01/18 07:00 93 Room Air 02/01/18 04:07 97 30 02/01/18 04:00 97.8 74 24 131/72 (91) 96 02/01/18 00:19 99.2 80 25 146/78 (100) 97 01/31/18 23:00 99 30 01/31/18 23:00 100 Bi-Pap 30 01/31/18 22:24 94 30 134/58 (83) 95 01/31/18 21:30 97.4 28 184/104 (130) 94 01/31/18 20:00 88 01/31/18 19:36 95 21 01/31/18 19:00 95 Room Air 01/31/18 16:00 99.5 88 32 148/59 (88) 96 I/O 01/31/18 01/31/18 01/31/18 02/01/18 02/01/18 02/01/18 07:00 15:00 23:00 07:00 15:00 23:00 Intake Total 1200 ml 480 ml Output Total 1000 ml 1900 ml 1200 ml Balance -1000 ml -700 ml -720 ml Intake Oral 1200 ml 480 ml Output Urine Total 1000 ml 1900 ml 1200 ml # Voids 4 # Bowel Movements 2 2 Result Diagram: 01/29/18 0603 02/01/18 0450 Objective Remarks GENERAL: This is a obese, young white female who is awake . HEENT: Head is normocephalic. Pupils are reactive. Sclerae clear. Throat is clear . Nasal mucosa is clear. NECK: Supple. No bruits or thyroid enlargement, no lymphadenopathy. CHEST: Decreased excursions. Occasional wheezes in the upper lung rachel. HEART: The heart sounds are regular S1 and S2 with no murmur. ABDOMEN: Soft, obese without masses. No organomegaly. EXTREMITIES: Ulcerated areas over the skin with cellulitis in the left leg healing. Has 2 + edema. The abdomen is obese and nontender with no organomegaly. NEUROLOGIC: The patient is alert . Reflexes 1+ with no gross motor deficits. Assessment and Plan Assessment and Plan ASSESSMENT AND PLAN: 1. Sepsis with cellulitis and skin ulcerations of the lower extremities.resolved 2. Obstructive sleep apnea syndrome. 3. Asthma with bronchitis. 4. Hyperglycemia. 5. Extreme obesity Plan: 1. Continue antibiotics per ID 2. ventolin HFA , 2 puffs tid prn 3. CPAP at HS 10 CM 4. Will arrange home CPAP at 10 CM pressure 5. Symbicort 160/4.5 mcg , 2 puffs BID 6. Sleep study as OP. 7. DVT prophylaxis 8. Will CT chest today Palma Duran MD February 01, 2018 12:16
--- NOTE | 2018-02-01 13:29 | HHI.PR ---
Subjective Remarks Patient seen today in follow-up for obstructive sleep apnea syndrome/obesity hypoventilation syndrome and resolved cellulitis with sepsis. No events on telemetry. Patient tolerating inpatient CPAP machine but unable to get her own machine. Awaiting secondary pulmonary consult for further discharge planning Objective Vitals Vital Signs Date Time Temp Pulse Resp B/P (MAP) Pulse Ox O2 Delivery O2 Flow Rate FiO2 02/01/18 12:00 98.8 78 24 137/90 (106) 92 02/01/18 10:00 78 02/01/18 08:26 94 21 02/01/18 08:00 98.0 82 31 145/70 (95) 93 02/01/18 08:00 82 02/01/18 07:00 93 Room Air 02/01/18 04:07 97 30 02/01/18 04:00 97.8 74 24 131/72 (91) 96 02/01/18 00:19 99.2 80 25 146/78 (100) 97 01/31/18 23:00 99 30 01/31/18 23:00 100 Bi-Pap 30 01/31/18 22:24 94 30 134/58 (83) 95 01/31/18 21:30 97.4 28 184/104 (130) 94 01/31/18 20:00 88 01/31/18 19:36 95 21 01/31/18 19:00 95 Room Air 01/31/18 16:00 99.5 88 32 148/59 (88) 96 I/O 01/31/18 01/31/18 01/31/18 02/01/18 02/01/18 02/01/18 07:00 15:00 23:00 07:00 15:00 23:00 Intake Total 1200 ml 480 ml Output Total 1000 ml 1900 ml 1200 ml Balance -1000 ml -700 ml -720 ml Intake Oral 1200 ml 480 ml Output Urine Total 1000 ml 1900 ml 1200 ml # Voids 4 # Bowel Movements 2 2 Result Diagram: 01/29/18 0603 02/01/18 0450 Imaging Last Impressions Chest X-Ray 01/28/18 0000 Signed Impressions: Service Date/Time: Sunday, January 28, 2018 17:03 - CONCLUSION: Stable abnormal chest appearance Thom Bailey MD Renal Ultrasound 01/24/18 0000 Signed Impressions: Service Date/Time: Wednesday, January 24, 2018 13:57 - CONCLUSION: Negative exam. Bladder is mainly decompressed. Victor Manuel Cervantes MD Objective Remarks She is obese with multiple skin lesions in various stages of healing GENERAL: This is a well-nourished, well-developed patient, in no apparent distress. CARDIOVASCULAR: Regular rate and rhythm without murmurs, gallops, or rubs. RESPIRATORY: Clear to auscultation. Breath sounds equal bilaterally. No wheezes , rales, or rhonchi. GASTROINTESTINAL: Abdomen soft, non-tender, nondistended. Normal active bowel sounds MUSCULOSKELETAL: Extremities without clubbing, cyanosis, or edema. NEURO: Alert & Oriented x4 to person, place, time, situation. Moves all ext x4 A/P Assessment and Plan Sepsis secondary cellulitis is resolved. Patient has 2 more days of p.o. doxycycline. Patient requires CPAP machine at home and is awaiting discharge until this can be arranged as an outpatient as the patient is high risk for respiratory failure and sudden pulmonary arrest. Consulting autocad electrical designer has requested a secondary autocad electrical designer to assist in outpatient arrangements. Diabetes is relatively well controlled on current insulin Discharge Planning Discharge home when arrangements made Rosalinda Maxwell MD February 01, 2018 13:29
[2018-02-02] VITALS (11 sets, daily range): BP systolic 104–156; BP diastolic 71–94; PULSE 66–102; RESP 16–38; TEMP 96.7–100; O2SAT 94–99
[2018-02-02] MEDS: HEPARIN SODIUM - SQ 10,000 UNITS/ML VIAL SQ SCH ×3 (05:19→21:08)
[2018-02-02] MEDS: INSULIN ASPART SUPPLEMENTAL SCALE SQ SCH ×2 (05:19→15:41)
[2018-02-02] MEDS: RESP: ALBUTEROL 2.5 MG/IPRATROPIUM 0.5 MG NEB (SCH) NEB ×2 (07:40→14:03)
[2018-02-02] MEDS: DOXYCYCLINE HYCLATE 100 MG CAP PO SCH ×2 (09:31→21:08)
[2018-02-02] MEDS: predniSONE 10 MG TAB PO SCH (09:31)
[2018-02-02] MEDS: INSULIN DETEMIR 100 UNITS/ML VIAL SQ SCH ×2 (09:31→21:08)
[2018-02-02] MEDS: DOCUSATE SODIUM 50 MG/SENNA 8.6 MG TAB PO SCH (09:32)
[2018-02-02] MEDS: BUDESONIDE-FORMOTEROL 160/4.5 MCG INHALER INH SCH ×2 (09:32→21:10)
[2018-02-02] MEDS: guaiFENesin/DEXTROMETHORPHAN 200 MG/20 MG/10 ML CUP PO PRN (09:39)
[2018-02-02] MEDS: ACETAMINOPHEN 325 MG TAB PO PRN ×3 (09:41→21:13)
--- NOTE | 2018-02-02 12:13 | HHI.PR ---
Subjective Remarks Patient seen today in follow-up for obstructive sleep apnea syndrome/obesity hypoventilation syndrome and resolved cellulitis with sepsis. Doing well. No acute complaints. Eating well, no abdominal pain, nausea or vomiting. No events on telemetry. Patient tolerating inpatient CPAP machine but unable to get her own machine. Awaiting Dr. Hidalgo arrival today. Objective Vitals Vital Signs Date Time Temp Pulse Resp B/P (MAP) Pulse Ox O2 Delivery O2 Flow Rate FiO2 02/02/18 07:40 98 21 02/02/18 07:00 98 Bi-Pap 30 02/02/18 05:09 96.7 66 27 128/80 (96) 98 02/02/18 04:05 99 30 02/02/18 01:00 99.5 92 18 156/72 (100) 99 02/02/18 00:55 99 30 02/01/18 20:27 94 21 02/01/18 20:00 99.2 96 22 151/69 (96) 94 02/01/18 19:00 94 Room Air 02/01/18 16:00 99.0 98 22 141/77 (98) 97 I/O 02/01/18 02/01/18 02/01/18 02/02/18 02/02/18 02/02/18 07:00 15:00 23:00 07:00 15:00 23:00 Intake Total 480 ml 960 ml 480 ml Output Total 1200 ml 3100 ml 400 ml Balance -720 ml -2140 ml 80 ml Intake Oral 480 ml 960 ml 480 ml Output Urine Total 1200 ml 3100 ml 400 ml # Voids 4 # Bowel Movements 2 3 Result Diagram: 01/29/18 0603 02/01/18 0450 Imaging Last Impressions Chest X-Ray 01/28/18 0000 Signed Impressions: Service Date/Time: Sunday, January 28, 2018 17:03 - CONCLUSION: Stable abnormal chest appearance Thom Bailey MD Renal Ultrasound 01/24/18 0000 Signed Impressions: Service Date/Time: Wednesday, January 24, 2018 13:57 - CONCLUSION: Negative exam. Bladder is mainly decompressed. Victor Manuel Cervantes MD Objective Remarks She is obese with multiple skin lesions in various stages of healing. GENERAL: This is a well-nourished, well-developed patient, in no apparent distress. CARDIOVASCULAR: Regular rate and rhythm without murmurs, gallops, or rubs. RESPIRATORY: Clear to auscultation. Breath sounds equal bilaterally. No wheezes , rales, or rhonchi. GASTROINTESTINAL: Abdomen soft, non-tender, nondistended. Normal active bowel sounds MUSCULOSKELETAL: Extremities without clubbing, cyanosis, or edema. NEURO: Alert & Oriented x4 to person, place, time, situation. Moves all ext x4 A/P Assessment and Plan Severe sepsis due to cellulitis, resolved -Patient no longer with septic criteria. Patient remains afebrile -Infectious disease is following the patient, recommending discontinuation of IV antibiotics and continuation of doxycycline. Wound growing MRSA. -Continue doxycycline 100 mg twice daily for 5 days (02/03/18) -Wound care reconsulted to assess buttock wound. Acute hypoxic respiratory failure, resolved -Likely secondary from history of asthma, untreated obstructive sleep apnea, obesity hypoperfusion syndrome -Patient has been weaned off oxygen at this time. -Patient using CPAP at night for respiratory support. -Asbestos Remover with following the patient and indicates the patient cannot be discharged without a CPAP machine. -Case management consulted to arrange for CPAP upon discharge. -Discussed with mid level practitioner recommended consulting Dr. Hidalgo, to see if he can arrange CPAP machine for discharge. -continue duo nebs -Patient is being weaned off of p.o. steroids -Continue Symbicort -Home oxygen walk study indicates that patient does not require any oxygen -Incentive spirometry Diabetes -Hemoglobin A1c 7.7 -Levemir 20 units daily -Sliding scale insulin, cover as needed -Discontinue aspart at meals insulin sliding scale. Acute renal failure, improved -Possibly exacerbated by antibiotics. -Renal US negative. FENa indicates prerenal etiology. Improving. Continue monitor renal function DVT prevention -Subcutaneous heparin Discharge Planning Discharge planning home once CPAP can be arranged for patient VicAkuaalessandra THOMPSON February 02, 2018 12:13
--- NOTE | 2018-02-02 16:41 | MB ---
cc: Rocky Hidalgo MD DATE: 02/02/2018 REASON FOR CONSULTATION: Probable sleep apnea. HISTORY OF PRESENT ILLNESS: The patient is a 32-year-old female who snores loudly while sleeping. Feels tired in the daytime. She is morbidly obese. Seen by Dr. Duran upon presentation with sepsis. She does have history of bronchial asthma as well, on bronchodilator therapy. The patient did have arterial blood gas done on 01/22/2018 with a pH of 7.43, pCO2 of 34 and a pO2 of 107. She denies a history of drop attacks, hallucinations or sleep paralysis, or abnormal movement during sleep, although she describes sleep as restless. PHYSICAL EXAMINATION: GENERAL: The patient is alert. VITAL SIGNS: Temperature 98, pulse 80, respirations 20, blood pressure 130/70. HEENT: Unremarkable. Eyes without icterus. NECK: Without adenopathy, thyroid enlargement. Central trachea. CHEST: Clear to percussion and auscultation. HEART: PMI not appreciated. S1, S2 audible. No murmur, no rub. ABDOMEN: Lax, audible bowel sounds. EXTREMITIES: No clubbing, cyanosis or edema. PAST MEDICAL HISTORY: Bronchial asthma and morbid obesity. FAMILY HISTORY: Positive for heart disease, diabetes and lung cancer. MEDICATIONS: 1. Doxycycline. 2. Dextromethorphan and guaifenesin 3. Albuterol ipratropium. 4. Insulin. 5. Inhaled Symbicort. 6. Nebulized albuterol as needed. ALLERGIES: NONE KNOWN TO MEDICATIONS. REVIEW OF SYSTEMS: A 12-point review of systems as per HPI and past history, otherwise negative. IMPRESSION: 1. Seep disordered breathing, obstructive sleep apnea, suspect. 2. Bronchial asthma. 3. Morbid obesity. PLAN: The patient will require polysomnographic evaluation to assess the severity of her sleep disordered breathing. My understanding, the patient has no funding to perform or to obtain equipment to treat her sleep apnea. We will make an attempt to monitor the patient in the hospital for sleep apnea if at all possible. Meanwhile, check her thyroid function. Every attempt should be made to help the patient with nutritional needs and help her lose weight. I do thank you for asking me to partake in Ms. Ferrell's care. MD JOSE Pardo/JESSICA , 04:09 PM , 04:40 PM
--- NOTE | 2018-02-02 17:46 | HHI.PR ---
Subjective Remarks No complaints. Walked in [place]. Used BIPAP last nite. Off o2 Skin cellulitis is better Will get a Sleep test. in am. Will Arrange home CPAP and consult Dr quintero Objective Vital Signs Date Time Temp Pulse Resp B/P (MAP) Pulse Ox O2 Delivery O2 Flow Rate FiO2 02/02/18 16:00 98.7 102 138/85 (102) 02/02/18 12:00 98.5 86 38 132/72 (92) 02/02/18 08:00 97.3 90 34 134/94 (107) 95 02/02/18 07:40 98 21 02/02/18 07:00 98 Bi-Pap 30 02/02/18 05:09 96.7 66 27 128/80 (96) 98 02/02/18 04:05 99 30 02/02/18 01:00 99.5 92 18 156/72 (100) 99 02/02/18 00:55 99 30 02/01/18 20:27 94 21 02/01/18 20:00 99.2 96 22 151/69 (96) 94 02/01/18 19:00 94 Room Air I/O 02/01/18 02/01/18 02/01/18 02/02/18 02/02/18 02/02/18 07:00 15:00 23:00 07:00 15:00 23:00 Intake Total 480 ml 960 ml 480 ml Output Total 1200 ml 3100 ml 400 ml Balance -720 ml -2140 ml 80 ml Intake Oral 480 ml 960 ml 480 ml Output Urine Total 1200 ml 3100 ml 400 ml # Voids 4 # Bowel Movements 2 3 Result Diagram: 01/29/18 0603 02/01/18 0450 Objective Remarks GENERAL: This is a obese, young white female who is awake . HEENT: Head is normocephalic. Pupils are reactive. Sclerae clear. Throat is clear . Nasal mucosa is clear. NECK: Supple. No bruits or thyroid enlargement, no lymphadenopathy. CHEST: Decreased excursions. Occasional wheezes in the upper lung racehl. HEART: The heart sounds are regular S1 and S2 with no murmur. ABDOMEN: Soft, obese without masses. No organomegaly. EXTREMITIES: Ulcerated areas over the skin with cellulitis in the left leg healing. Has 2 + edema. The abdomen is obese and nontender with no organomegaly. NEUROLOGIC: The patient is alert . Reflexes 1+ with no gross motor deficits. Assessment and Plan Assessment and Plan ASSESSMENT AND PLAN: 1. Sepsis with cellulitis and skin ulcerations of the lower extremities.resolved 2. Obstructive sleep apnea syndrome. 3. Asthma with bronchitis. 4. Hyperglycemia. 5. Extreme obesity Plan: 1. Continue antibiotics per ID 2. ventolin HFA , 2 puffs tid prn 3. CPAP at HS 10 CM 4. Will arrange home CPAP at 10 CM pressure 5. Symbicort 160/4.5 mcg , 2 puffs BID 6. Sleep study in am 7. DVT prophylaxis 8. Cont PT and OT Palma Duran MD February 02, 2018 17:46
[2018-02-03] VITALS (10 sets, daily range): BP systolic 117–144; BP diastolic 58–82; PULSE 72–100; RESP 22–30; TEMP 98.1–99.2; O2SAT 91–97
[2018-02-03] MEDS: HEPARIN SODIUM - SQ 10,000 UNITS/ML VIAL SQ SCH ×3 (05:42→21:12)
[2018-02-03] MEDS: INSULIN ASPART SUPPLEMENTAL SCALE SQ SCH ×2 (05:44→15:00)
[2018-02-03] MEDS: DOCUSATE SODIUM 50 MG/SENNA 8.6 MG TAB PO SCH (08:22)
[2018-02-03] MEDS: guaiFENesin/DEXTROMETHORPHAN 200 MG/20 MG/10 ML CUP PO PRN (08:22)
[2018-02-03] MEDS: DOXYCYCLINE HYCLATE 100 MG CAP PO SCH (08:22)
[2018-02-03] MEDS: INSULIN DETEMIR 100 UNITS/ML VIAL SQ SCH ×2 (08:22→21:12)
[2018-02-03] MEDS: BUDESONIDE-FORMOTEROL 160/4.5 MCG INHALER INH SCH ×2 (08:23→21:14)
--- NOTE | 2018-02-03 09:04 | HHI.PR ---
Subjective Remarks Patient seen today in follow-up for obstructive sleep apnea syndrome/obesity hypoventilation syndrome and resolved cellulitis with sepsis. Doing well. No acute complaints. Eating well, no abdominal pain, nausea or vomiting. No events on telemetry. Wound care in to see patient today, stage 4 sacrum ulcer assessed and dressing orders in. Specialty bed ordered. Patient denies any pain. Pulmonary following for assistance with CPAP machine at home. Plan is for sleep study in hospital tonight, per pulmonary. Objective Vitals Vital Signs Date Time Temp Pulse Resp B/P (MAP) Pulse Ox O2 Delivery O2 Flow Rate FiO2 02/03/18 08:00 95 Room Air 02/03/18 08:00 99.1 100 126/58 (80) 95 02/03/18 06:22 96 21 02/03/18 04:50 97 30 02/03/18 04:00 98.8 72 28 117/62 (80) 97 02/03/18 00:00 99.2 84 22 134/71 (92) 91 02/02/18 23:50 94 30 02/02/18 22:13 18 02/02/18 20:30 95 21 02/02/18 20:00 100.0 86 16 104/71 (82) 94 02/02/18 19:00 94 Room Air 02/02/18 16:00 98.7 102 138/85 (102) 02/02/18 12:00 98.5 86 38 132/72 (92) I/O 02/02/18 02/02/18 02/02/18 02/03/18 02/03/18 02/03/18 06:59 14:59 22:59 06:59 14:59 22:59 Intake Total 480 ml 480 ml Output Total 400 ml 1300 ml 400 ml Balance 80 ml -1300 ml 80 ml Intake Oral 480 ml 480 ml Output Urine Total 400 ml 1300 ml 400 ml # Bowel Movements 2 1 Result Diagram: 02/01/18 0450 Imaging Last Impressions Chest X-Ray 01/28/18 0000 Signed Impressions: Service Date/Time: Sunday, January 28, 2018 17:03 - CONCLUSION: Stable abnormal chest appearance Thom Bailey MD Renal Ultrasound 01/24/18 0000 Signed Impressions: Service Date/Time: Wednesday, January 24, 2018 13:57 - CONCLUSION: Negative exam. Bladder is mainly decompressed. Victor Manuel Cervantes MD Objective Remarks She is obese with multiple skin lesions in various stages of healing. GENERAL: This is a well-nourished, well-developed patient, in no apparent distress. CARDIOVASCULAR: Regular rate and rhythm without murmurs, gallops, or rubs. RESPIRATORY: Clear to auscultation. Breath sounds equal bilaterally. No wheezes , rales, or rhonchi. GASTROINTESTINAL: Abdomen soft, non-tender, nondistended. Normal active bowel sounds MUSCULOSKELETAL: Extremities without clubbing, cyanosis, or edema. NEURO: Alert & Oriented x4 to person, place, time, situation. Moves all ext x4 A/P Assessment and Plan Severe sepsis due to cellulitis, resolved - Patient no longer with septic criteria. - Patient did have low grade fever overnight. Will recheck blood cultures. Lactic acid ordered. Follow. Labs pending for today. - Infectious disease is following the patient, recommending discontinuation of IV antibiotics and continuation of doxycycline. Wound growing MRSA. - Finished Doxycycline course 02/03/18) - Wound care reconsulted to assess buttock wound. Diarrhea: Will check stool studies. Stage IV sacrum ulcer - Orders per prefitter. Santyl ordered. - Specialty bed ordered. - Wound culture ordered and pending. Acute hypoxic respiratory failure, resolved. -Likely secondary from history of asthma, untreated obstructive sleep apnea, obesity hypoperfusion syndrome -Patient has been weaned off oxygen at this time. -Patient using CPAP at night for respiratory support. -Senior Systems Engineer with following the patient and indicates the patient cannot be discharged without a CPAP machine. -Case management consulted to arrange for CPAP upon discharge. - Continue duo nebs and Symbicort. - Steroids weaned off. - Home oxygen walk study indicates that patient does not require any oxygen - Incentive spirometry Diabetes - Hemoglobin A1c 7.7 - Levemir 20 units daily - Sliding scale insulin, cover as needed - Discontinue aspart at meals insulin sliding scale. Acute renal failure, improved - Possibly exacerbated by antibiotics. - Renal US negative. FENa indicates prerenal etiology. Improving. - Continue monitor renal function DVT prevention: Subcutaneous heparin Discharge Planning Discharge planning home once CPAP can be arranged for patient Akua Ho DONNA February 03, 2018 09:04
[2018-02-03] MEDS: COLLAGENASE OINT 30 GM TUBE TOPICAL SCH ×2 (10:00→21:14)
[2018-02-03 11:13] LABS: BASOPHIL # 0.5 TH/MM3 (0-0.2); BASOPHIL % 2.9 % (0.0-2.0); EOSINOPHIL # 0.2 TH/MM3 (0-0.4); EOSINOPHIL % 1.2 % (0.0-4.0); HEMATOCRIT 33.6 % (35.0-46.0); LYMPH % 11.1 % (9.0-44.0); LYMPHOCYTE # 1.8 TH/MM3 (1.0-4.8); MEAN CELL VOLUME 86.5 FL (80.0-100.0); MEAN CORPUSCULAR HEMOGLOBIN 28.3 PG (27.0-34.0); MEAN CORPUSCULAR HGB CONC 32.7 % (32.0-36.0); MEAN PLATELET VOLUME 7.7 FL (7.0-11.0); MONO % 3.1 % (0.0-8.0); MONOCYTE # 0.5 TH/MM3 (0-0.9); NEUT % 81.7 % (16.0-70.0); PLATELET COUNT 374 TH/MM3 (150-450); RED BLOOD COUNT 3.88 MIL/MM3 (4.00-5.30); RED CELL DISTRIBUTION WIDTH 14.1 % (11.6-17.2)
[2018-02-03 11:32] LABS: CHLORIDE 101 MEQ/L (98-107); SODIUM (NA) 139 MEQ/L (136-145)
[2018-02-03 11:36] LABS: ALBUMIN 3.2 GM/DL (3.4-5.0); BICARBONATE 30.6 MEQ/L (21.0-32.0); BLOOD UREA NITROGEN 28 MG/DL (7-18); GLUCOSE,RANDOM 138 MG/DL (74-106)
[2018-02-03 11:39] LABS: ALT (GPT) 65 U/L (10-53); AST (GOT) 70 U/L (15-37); GLOMERULAR FILTRATION RATE 35 ML/MIN (>89)
[2018-02-03 11:40] LABS: TOTAL BILIRUBIN ADULT 0.9 MG/DL (0.2-1.0)
[2018-02-03 11:41] LABS: TOTAL PROTEIN 9.5 GM/DL (6.4-8.2)
[2018-02-03 11:42] LABS: ALKALINE PHOSPHATASE 93 U/L (45-117); LACTIC ACID SEPSIS PROTOCOL 2.1 mmol/L (0.4-2.0)
[2018-02-03 12:15] LABS: STOMATOCYTES 1+ (NORMAL); TEARDROP RBCS 1+ (NORMAL)
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
--- NOTE | 2018-02-03 16:53 | HHI.PR ---
Subjective Remarks ALERT NO SOB Objective Vital Signs Date Time Temp Pulse Resp B/P (MAP) Pulse Ox O2 Delivery O2 Flow Rate FiO2 02/03/18 12:00 98.1 72 28 117/62 (80) 97 02/03/18 08:00 95 Room Air 02/03/18 08:00 99.1 100 126/58 (80) 95 02/03/18 07:30 95 21 02/03/18 06:22 96 21 02/03/18 04:50 97 30 02/03/18 04:00 98.8 72 28 117/62 (80) 97 02/03/18 00:00 99.2 84 22 134/71 (92) 91 02/02/18 23:50 94 30 02/02/18 22:13 18 02/02/18 20:30 95 21 02/02/18 20:00 100.0 86 16 104/71 (82) 94 02/02/18 19:00 94 Room Air I/O 02/02/18 02/02/18 02/02/18 02/03/18 02/03/18 02/03/18 07:00 15:00 23:00 07:00 15:00 23:00 Intake Total 480 ml 480 ml Output Total 400 ml 1300 ml 400 ml Balance 80 ml -1300 ml 80 ml Intake Oral 480 ml 480 ml Output Urine Total 400 ml 1300 ml 400 ml # Bowel Movements 2 1 Result Diagram: 02/03/18 1045 02/03/18 1045 Objective Remarks GENERAL: SKIN: Warm and dry. HEAD: Atraumatic. Normocephalic. EYES: Pupils equal and round. No scleral icterus. No injection or drainage. ENT: No nasal bleeding or discharge. Mucous membranes pink and moist. NECK: Trachea midline. No JVD. CARDIOVASCULAR: Regular rate and rhythm. RESPIRATORY: No accessory muscle use. Clear to auscultation. Breath sounds equal bilaterally. GASTROINTESTINAL: Abdomen soft, non-tender, nondistended. Hepatic and splenic margins not palpable. MUSCULOSKELETAL: Extremities without clubbing, cyanosis, or edema. No obvious deformities. NEUROLOGICAL: Awake and alert. No obvious cranial nerve deficits. Motor grossly within normal limits. Five out of 5 muscle strength in the arms and legs. Normal speech. PSYCHIATRIC: Appropriate mood and affect; insight and judgment normal. Assessment and Plan Assessment and Plan ASS SDB ? JAS PLAN NPSG WHEN POSSIBLE Rocky,Rocky Wadie MD February 03, 2018 16:53
--- NOTE | 2018-02-03 17:18 | HHI.PR ---
Subjective Remarks Stable and not SOB at rest. Used BIPAP last nite. Skin cellulitis is better. Has a sacral ulcer. Will get a Sleep test. this week Will Arrange home sleep study. Objective Vital Signs Date Time Temp Pulse Resp B/P (MAP) Pulse Ox O2 Delivery O2 Flow Rate FiO2 02/03/18 12:00 98.1 72 28 117/62 (80) 97 02/03/18 08:00 95 Room Air 02/03/18 08:00 99.1 100 126/58 (80) 95 02/03/18 07:30 95 21 02/03/18 06:22 96 21 02/03/18 04:50 97 30 02/03/18 04:00 98.8 72 28 117/62 (80) 97 02/03/18 00:00 99.2 84 22 134/71 (92) 91 02/02/18 23:50 94 30 02/02/18 22:13 18 02/02/18 20:30 95 21 02/02/18 20:00 100.0 86 16 104/71 (82) 94 02/02/18 19:00 94 Room Air I/O 02/02/18 02/02/18 02/02/18 02/03/18 02/03/18 02/03/18 07:00 15:00 23:00 07:00 15:00 23:00 Intake Total 480 ml 480 ml Output Total 400 ml 1300 ml 400 ml Balance 80 ml -1300 ml 80 ml Intake Oral 480 ml 480 ml Output Urine Total 400 ml 1300 ml 400 ml # Bowel Movements 2 1 Result Diagram: 02/03/18 1045 02/03/18 1045 Objective Remarks GENERAL: This is a obese, young white female who is awake . HEENT: Head is normocephalic. Pupils are reactive. Sclerae clear. Throat is clear . Nasal mucosa is clear. NECK: Supple. No bruits or thyroid enlargement, no lymphadenopathy. CHEST: Decreased excursions. Occasional wheezes in the upper lung rachel. HEART: The heart sounds are regular S1 and S2 with no murmur. ABDOMEN: Soft, obese without masses. No organomegaly. EXTREMITIES: Ulcerated areas over the skin with cellulitis in the left leg healing. Has 1 + edema. The abdomen is obese and nontender with no organomegaly. NEUROLOGIC: The patient is alert . Reflexes 1+ with no gross motor deficits. Assessment and Plan Assessment and Plan ASSESSMENT AND PLAN: 1. Sepsis with cellulitis and skin ulcerations of the lower extremities.resolved 2. Obstructive sleep apnea syndrome. 3. Asthma with bronchitis. 4. Hyperglycemia. 5. Extreme obesity Plan: 1. Continue antibiotics per ID 2. ventolin HFA , 2 puffs tid prn 3. CPAP at HS 10 CM 4. Will arrange home CPAP 5. Symbicort 160/4.5 mcg , 2 puffs BID 6. Sleep study per Dr quintero. 7.Will follow as needed. Palma Duran MD February 03, 2018 17:18
[2018-02-03] MEDS: SODIUM CHLOR 0.9% 1000 ML INJ 1,000 ML IV SCH (20:25)
[2018-02-04] VITALS (8 sets, daily range): BP systolic 104–155; BP diastolic 62–82; PULSE 77–100; RESP 20–44; TEMP 97.8–99.2; O2SAT 95–97
[2018-02-04] MEDS: HEPARIN SODIUM - SQ 10,000 UNITS/ML VIAL SQ SCH ×3 (05:17→23:01)
[2018-02-04] MEDS: INSULIN ASPART SUPPLEMENTAL SCALE SQ SCH ×2 (05:18→15:00)
[2018-02-04] MEDS: DOCUSATE SODIUM 50 MG/SENNA 8.6 MG TAB PO SCH (07:55)
[2018-02-04] MEDS: BUDESONIDE-FORMOTEROL 160/4.5 MCG INHALER INH SCH ×2 (10:51→20:23)
[2018-02-04] MEDS: INSULIN DETEMIR 100 UNITS/ML VIAL SQ SCH ×2 (10:51→20:23)
[2018-02-04] MEDS: COLLAGENASE OINT 30 GM TUBE TOPICAL SCH (10:52)
--- NOTE | 2018-02-04 12:13 | HHI.PR ---
Subjective Remarks Patient seen today in follow-up for obstructive sleep apnea syndrome/obesity hypoventilation syndrome and resolved cellulitis with sepsis. Patient sitting up in chair in no apparent distress. Denies any pain. Eating well and relating well. Participating with PT. No events overnight. Sleep study was not done, will contact pulmonology for further input. Blood cultures negative. Wound culture pending. Afebrile overnight. Blood pressure stable. Vital signs stable. Continue sacrum dressings daily. Objective Vitals Vital Signs Date Time Temp Pulse Resp B/P (MAP) Pulse Ox O2 Delivery O2 Flow Rate FiO2 02/04/18 04:00 98.3 77 24 117/72 (87) 97 02/04/18 03:50 95 30 02/04/18 00:45 96 30 02/04/18 00:00 98.1 77 22 134/82 (99) 97 02/03/18 21:09 95 21 02/03/18 20:00 98.2 98 24 144/82 (102) 96 02/03/18 19:00 94 Room Air 02/03/18 16:35 98.6 92 30 131/72 (91) I/O 02/03/18 02/03/18 02/03/18 02/04/18 02/04/18 02/04/18 07:00 15:00 23:00 07:00 15:00 23:00 Intake Total 480 ml 460 ml Output Total 400 ml 600 ml Balance 80 ml -140 ml Intake Oral 480 ml 460 ml Output Urine Total 400 ml 600 ml # Bowel Movements 1 7 0 Result Diagram: 02/03/18 1045 02/03/18 1045 Imaging Last Impressions Chest X-Ray 01/28/18 0000 Signed Impressions: Service Date/Time: Sunday, January 28, 2018 17:03 - CONCLUSION: Stable abnormal chest appearance Thom Bailey MD Renal Ultrasound 01/24/18 0000 Signed Impressions: Service Date/Time: Wednesday, January 24, 2018 13:57 - CONCLUSION: Negative exam. Bladder is mainly decompressed. Victor Manuel Cervantes MD Objective Remarks She is obese with multiple skin lesions in various stages of healing. GENERAL: This is a well-nourished, well-developed patient, in no apparent distress. CARDIOVASCULAR: Regular rate and rhythm without murmurs, gallops, or rubs. RESPIRATORY: Clear to auscultation. Breath sounds equal bilaterally. No wheezes , rales, or rhonchi. GASTROINTESTINAL: Abdomen soft, non-tender, nondistended. Normal active bowel sounds MUSCULOSKELETAL: Extremities without clubbing, cyanosis, or edema. NEURO: Alert & Oriented x4 to person, place, time, situation. Moves all ext x4 A/P Assessment and Plan Stage IV sacrum ulcer with abscess - Soft tissue US ordered, showing superficial small abscess measuring 2.5 cm. - Orders per bandoleer straightener stamper. Praveena ordered. Wound care orders in place. - Specialty bed ordered. - Wound culture growing gram neg sheeba, suspect E. Coli? Await micro and sensitivity. Start on Ancef for now. Appreciate ID recommendations, reconsulted. May need general surgery consult. - Blood cultures redrawn, no growth to date. Lactic WNL. WBC 16. Follow CBC. Severe sepsis upon presentation due to lower extremity cellulitis, cellulitis improving. - Patient no longer with septic criteria. - Patient did have low grade fever. Blood cultures negative initially. Lactic acid ordered. Mild leukocytosis. - Infectious disease is following the patient. Wound grew MRSA. Finished Doxycycline course 02/03/18. Acute renal failure - Possibly exacerbated by antibiotics. - Renal US negative. Likely prerenal etiology. - Continue monitor renal function. - Was improving, now 1.7. Recheck in a.m. Gentle hydration. Encourage fluids. Acute hypoxic respiratory failure, resolved. - Likely secondary from history of asthma, untreated obstructive sleep apnea, obesity hypoperfusion syndrome. O2 weaned off during day. - Patient using CPAP at night with O2 for respiratory support. Will attempt to wean per RT overnight, without O2. - Artificial Flower Maker with following the patient and indicates the patient cannot be discharged without a CPAP machine. Attempting to arrange sleep study in hospital. Dr. Hidalgo managing. - Case management consulted to arrange for CPAP upon discharge. - Continue duo nebs and Symbicort. - Steroids weaned off. - Home oxygen walk study indicates that patient does not require any oxygen - Incentive spirometry Type 1 Diabetes Mellitus, chronic - Hemoglobin A1c 7.7 - Continue Levemir 20 units daily - Sliding scale insulin, cover as needed. Blood sugar well controlled. - Discontinue aspart at meals insulin sliding scale. DVT prevention: Subcutaneous heparin Akua Ho February 04, 2018 12:13
--- NOTE | 2018-02-04 12:49 | RADRPT ---
EXAM DATE/TIME: 02/04/2018 12:14 [facility] COMPARISON: No previous studies available for comparison. INDICATIONS : Sacrum abscess. MEDICAL HISTORY : Hypothyroidism. Migraines. Sleep apnea. Asthma. Diabetes. Pruritis. MRSA. SURGICAL HISTORY : Adenoidectomy. ENCOUNTER: Initial ACUITY: 1 week PAIN SCORE: 8/10 LOCATION: Bilateral sacrum. AREA EVALUATED: Sacrum. FINDINGS: MASSES: None. FLUID COLLECTIONS: Small superficial complex fluid collection measures 2.5 x 1.3 cm. There is skin thickening and soft t issue swelling. OTHER: Negative. CONCLUSION: Small superficial sacral abscess measuring 2.5 cm. Jaun Macdonald MD on February 04, 2018 at 12:46 Board Certified Radiologist. This report was verified electronically.
[2018-02-04] MEDS: ACETAMINOPHEN 325 MG TAB PO PRN (16:36)
--- NOTE | 2018-02-04 17:57 | HHI.PR ---
Subjective Remarks Wants to go home Uses BIPAP at HS Skin cellulitis is better. Has a sacral ulcer. Will get a Sleep test. this week Objective Vital Signs Date Time Temp Pulse Resp B/P (MAP) Pulse Ox O2 Delivery O2 Flow Rate FiO2 02/04/18 16:41 98.1 90 44 155/62 (93) 02/04/18 11:24 97.8 100 38 104/66 (79) 02/04/18 08:00 95 Room Air 02/04/18 04:00 98.3 77 24 117/72 (87) 97 02/04/18 03:50 95 30 02/04/18 00:45 96 30 02/04/18 00:00 98.1 77 22 134/82 (99) 97 02/03/18 21:09 95 21 02/03/18 20:00 98.2 98 24 144/82 (102) 96 02/03/18 19:00 94 Room Air I/O 02/03/18 02/03/18 02/03/18 02/04/18 02/04/18 02/04/18 07:00 15:00 23:00 07:00 15:00 23:00 Intake Total 480 ml 460 ml Output Total 400 ml 600 ml Balance 80 ml -140 ml Intake Oral 480 ml 460 ml Output Urine Total 400 ml 600 ml # Bowel Movements 1 7 0 Result Diagram: 02/03/18 1045 02/03/18 1045 Objective Remarks GENERAL: This is a obese, young white female who is awake . HEENT: Head is normocephalic. Pupils are reactive. Sclerae clear. Throat is clear . Nasal mucosa is clear. NECK: Supple. No bruits or thyroid enlargement, no lymphadenopathy. CHEST: Decreased excursions. Occasional wheezes in the upper lung rachel. HEART: The heart sounds are regular S1 and S2 with no murmur. ABDOMEN: Soft, obese without masses. No organomegaly. EXTREMITIES: Ulcerated areas over the skin with cellulitis in the left leg healing. Has 1 + edema. The abdomen is obese and nontender with no organomegaly. NEUROLOGIC: The patient is alert . Reflexes 1+ with no gross motor deficits. Assessment and Plan Assessment and Plan ASSESSMENT AND PLAN: 1. Sepsis with cellulitis and skin ulcerations of the lower extremities.resolved 2. Obstructive sleep apnea syndrome. 3. Asthma with bronchitis. 4. Hyperglycemia. 5. Extreme obesity Plan: 1. Continue antibiotics per ID 2. ventolin HFA , 2 puffs tid prn 3. BiPAP at HS 4. Will arrange home CPAP 5. Symbicort 160/4.5 mcg , 2 puffs BID 6. Sleep study per Dr quintero. 7. Home when cleared by Palma Velazquez MD February 04, 2018 17:57
--- NOTE | 2018-02-04 19:30 | HHI.IDPN ---
Note Infectious Disease Note ID reconsulted for abscess in scaral area. Had a low grade fever and worsening leucocytosis. Abscess is draining and wound with uneder mining Past Family Social History Allergies: Coded Allergies: No Known Allergies (Verified Adverse Reaction, Unknown, 01/22/18) Past Medical History Past Medical History Obstructive sleep apnea Childhood asthma Irritable bowel syndrome Bedbug exposure Allergies: Coded Allergies: No Known Allergies (Verified Adverse Reaction, Unknown, 01/22/18) Current Medications Medications (Trade) Dose Ordered Sig/Toni Route PRN Reason Start Time Stop Time Status Last Admin Dose Admin Sodium Chloride 1,000 ml @ 150 mls/hr Q6H40M IV 01/22/18 11:00 01/26/18 16:18 Sodium Chloride (NS Flush) 2 ml UNSCH PRN IV FLUSH FLUSH AFTER USING IV ACCESS 01/22/18 11:00 Sodium Chloride (NS Flush) 2 ml BID IV FLUSH 01/22/18 21:00 01/25/18 20:15 Acetaminophen (Tylenol) 650 mg Q4H PRN PO TEMP > 100.4 01/22/18 11:00 01/22/18 17:00 Ondansetron HCl (Zofran Inj) 4 mg Q6H PRN IVP NAUSEA OR VOMITING 01/22/18 11:00 Acetaminophen (Tylenol) 650 mg Q6H PRN PO PAIN SCALE 1 TO 2 01/22/18 11:00 01/23/18 14:00 Oxycodone HCl (Roxicodone) 10 mg Q4H PRN PO PAIN SCALE 6 TO 10 01/22/18 11:00 01/25/18 13:22 Morphine Sulfate (Morphine Inj) 4 mg Q3H PRN IV PUSH BREAKTHROUGH PAIN 01/22/18 11:00 01/23/18 22:07 Oxycodone HCl (Roxicodone) 5 mg Q4H PRN PO PAIN SCALE 3 TO 5 01/22/18 11:00 01/24/18 18:32 Naloxone HCl (Narcan Inj) 0.4 mg UNSCH PRN IV PUSH SEE LABEL COMMENTS 01/22/18 11:00 Senna/Docusate Sodium (Marisela-Colace) 1 tab BID PO 01/22/18 21:00 01/26/18 10:25 Heparin Sodium (Porcine) (Heparin Inj) 5,000 units Q8HR SQ 01/22/18 14:00 01/26/18 13:38 Albuterol/ Ipratropium (Duoneb Neb) 1 ampule Q2HR NEB PRN NEB dyspnea 01/22/18 14:15 01/26/18 05:06 Lorazepam (Ativan Inj) 1 mg Q6H PRN IV PUSH anxiety 01/22/18 15:15 01/22/18 15:17 Budesonide/ Formoterol Fumarate (Symbicort 160-4.5 Mcg Inh) 2 puff Q12HR INH 01/22/18 21:00 01/26/18 09:00 Miscellaneous Information ([facility] [place] [facility] Patient in critical care unit? Ass... [id number] .XX 01/24/18 20:00 01/24/18 20:00 Chlorhexidine Gluconate (Chlorhexidine 2% Cloth) 3 pack DAILY@04 TOPICAL 01/25/18 04:00 01/29/18 04:01 01/24/18 21:47 Chlorhexidine Gluconate (Chlorhexidine 2% Cloth) 3 pack UNSCH PRN TOPICAL HYGIENIC CARE 01/24/18 20:00 01/29/18 19:52 Insulin Aspart (NovoLOG SUPPLEMENTAL SCALE) 1 ACHS SLIDING SCALE SQ 01/25/18 08:00 01/26/18 17:46 Insulin Aspart (NovoLOG INJ) 5 units TIDAC SQ 01/25/18 17:00 01/26/18 17:45 Insulin Detemir (Levemir Inj) 20 units Q12HR SQ 01/25/18 21:00 01/26/18 10:26 Daptomycin 900 mg/ Sodium Chloride 100 ml @ 200 mls/hr Q24H IV 01/26/18 06:00 01/26/18 05:48 Objective: Vital Signs Date Time Temp Pulse Resp B/P (MAP) Pulse Ox O2 Delivery O2 Flow Rate FiO2 01/26/18 16:02 94 31 99 01/26/18 15:00 98.0 96 28 156/68 (97) 97 01/26/18 08:00 97.9 88 16 135/71 (92) 100 01/26/18 07:40 100 Nasal Cannula 2.00 01/26/18 07:00 Nasal Cannula 2.00 01/26/18 05:00 98 Nasal Cannula 2.00 01/26/18 04:00 97.2 78 13 128/69 (88) 98 01/26/18 02:25 99 30 01/26/18 00:00 97.3 92 14 133/59 (83) 100 01/25/18 23:30 99 30 01/25/18 23:30 93 Bi-Pap 30 01/25/18 20:00 98.0 104 28 124/71 (88) 98 01/25/18 20:00 98 Nasal Cannula 2.00 01/25/18 19:00 97 Nasal Cannula 2.00 Laboratory Tests Test 01/25/18 04:44 01/26/18 05:13 White Blood Count 13.9 TH/MM3 14.2 TH/MM3 Red Blood Count 3.38 MIL/MM3 3.40 MIL/MM3 Hemoglobin 9.6 GM/DL 9.6 GM/DL Hematocrit 29.3 % 29.3 % Mean Corpuscular Volume 86.6 FL 86.1 FL Mean Corpuscular Hemoglobin 28.3 PG 28.2 PG Mean Corpuscular Hemoglobin Concent 32.6 % 32.7 % Red Cell Distribution Width 14.1 % 14.1 % Platelet Count 187 TH/MM3 216 TH/MM3 Mean Platelet Volume 8.8 FL 8.6 FL Laboratory Tests Test 01/25/18 04:44 01/26/18 05:13 Blood Urea Nitrogen 35 MG/DL 33 MG/DL Creatinine 1.90 MG/DL 1.60 MG/DL Random Glucose 316 MG/DL 200 MG/DL Calcium Level 8.0 MG/DL 8.4 MG/DL Magnesium Level 2.4 MG/DL 2.5 MG/DL Sodium Level 141 MEQ/L 141 MEQ/L Potassium Level 4.5 MEQ/L 4.7 MEQ/L Chloride Level 110 MEQ/L 112 MEQ/L Carbon Dioxide Level 23.2 MEQ/L 23.1 MEQ/L Anion Gap 8 MEQ/L 6 MEQ/L Estimat Glomerular Filtration Rate 31 ML/MIN 38 ML/MIN Imaging: Renal Ultrasound 01/24/18 0000 Signed Impressions: Service Date/Time: Wednesday, January 24, 2018 13:57 - CONCLUSION: Negative exam. Bladder is mainly decompressed. Victor Manuel Cervantes MD Chest X-Ray 01/22/18 0911 Signed Impressions: Service Date/Time: Saturday, January 22, 2018 09:14 - CONCLUSION: Examination quality less than optimal secondary to patient body habitus. Given the technique, no acute finding is seen. Thom Ghotra MD PHYSICAL EXAM: GENERAL: Alert and oriented, no acute distress. HEENT: Pupils reactive to light. Extraocular movements intact. No icterus. NECK: Supple without adenopathy. No swelling. LUNGS: Clear decreased breath sounds. HEART: Regular S1 and S2. No audible murmurs rubs or gallops. ABDOMEN: Obese, large abdominal girth. Soft, decreased bowel sounds. EXTREMITIES: Markedly decreased erythema of the left lower extremity. Dry ulcers 3 at the left lower extremity. 1 dry ulcer at the right foot. Many raised tiny nonerythematous areas on the skin. Excoriations of the upper extremities. SKIN: Wound in scaral area which is open - has some undermining and with some purulent drainage. Some surrounding erythema. NEUROLOGIC: Nonfocal. PSYCH: Calm and cooperative. Assessment and Plan Sacral abscess- draining Cellulitis of the left lower extremity. - resolving Leukocytosis. Acute kidney disease. Recommendation: Follow blood and wound cultures Local wound care Start Zosyn 3.375 g IV q8hrs Fluconazole 100 mg po daily Liat Georges MD February 04, 2018 19:30
[2018-02-04] MEDS: FLUCONAZOLE 100 MG TAB PO SCH (20:21)
[2018-02-04] MEDS: PIPERACIL-TAZO 3.375 GM PREMIX 50 ML IV SCH (20:23)
[2018-02-05] VITALS (9 sets, daily range): BP systolic 115–125; BP diastolic 62–79; PULSE 82–97; RESP 20–28; TEMP 98.7–99.8; O2SAT 92–97
[2018-02-05] MEDS: INSULIN ASPART SUPPLEMENTAL SCALE SQ SCH ×2 (06:00→14:38)
[2018-02-05] MEDS: HEPARIN SODIUM - SQ 10,000 UNITS/ML VIAL SQ SCH ×3 (06:05→21:12)
[2018-02-05] MEDS: PIPERACIL-TAZO 3.375 GM PREMIX 50 ML IV SCH ×3 (06:05→20:37)
[2018-02-05 07:25] LABS: AUTOMATED NEUTROPHIL # 8.5 TH/MM3 (1.8-7.7); BASOPHIL # 0.2 TH/MM3 (0-0.2); BASOPHIL % 2.1 % (0.0-2.0); EOSINOPHIL # 0.2 TH/MM3 (0-0.4); EOSINOPHIL % 1.6 % (0.0-4.0); HEMATOCRIT 31.8 % (35.0-46.0); HEMOGLOBIN 10.7 GM/DL (11.6-15.3); LYMPH % 13.7 % (9.0-44.0); LYMPHOCYTE # 1.5 TH/MM3 (1.0-4.8); MEAN CELL VOLUME 85.6 FL (80.0-100.0); MEAN CORPUSCULAR HEMOGLOBIN 28.9 PG (27.0-34.0); MEAN CORPUSCULAR HGB CONC 33.8 % (32.0-36.0); MEAN PLATELET VOLUME 8.8 FL (7.0-11.0); MONO % 4.4 % (0.0-8.0); MONOCYTE # 0.5 TH/MM3 (0-0.9); NEUT % 78.2 % (16.0-70.0); PLATELET COUNT 357 TH/MM3 (150-450); RED BLOOD COUNT 3.71 MIL/MM3 (4.00-5.30); RED CELL DISTRIBUTION WIDTH 14.5 % (11.6-17.2); WHITE BLOOD COUNT 10.9 TH/MM3 (4.0-11.0)
[2018-02-05 07:26] LABS: BILIRUBIN, URINE NEG (NEG); BLOOD, URINE TRACE (NEG); GLUCOSE,URINE NEG (NEG); KETONE, URINE TRACE mg/dL (NEG); NITRITE,URINE NEG (NEG); URINE COLOR YELLOW (YELLW/STRAW); URINE LEUKOCYTE ESTERASE NEG (NEG)
[2018-02-05 07:28] LABS: CHLORIDE 103 MEQ/L (98-107); SODIUM (NA) 139 MEQ/L (136-145)
[2018-02-05 07:36] LABS: CALCIUM 9.7 MG/DL (8.5-10.1)
[2018-02-05 07:37] LABS: HYALINE CAST, URINE 0-2 /lpf (RARE); WBC, URINE 0-2 /hpf (0-5)
[2018-02-05 07:37] LABS: ALBUMIN 3.1 GM/DL (3.4-5.0); BICARBONATE 28.5 MEQ/L (21.0-32.0); BLOOD UREA NITROGEN 34 MG/DL (7-18); GLUCOSE,RANDOM 130 MG/DL (74-106)
[2018-02-05 07:38] LABS: AMORPHOUS SEDIMENT, URINE SMALL
[2018-02-05 07:40] LABS: ALT (GPT) 53 U/L (10-53); AST (GOT) 36 U/L (15-37); GLOMERULAR FILTRATION RATE 31 ML/MIN (>89)
[2018-02-05 07:41] LABS: TOTAL BILIRUBIN ADULT 0.8 MG/DL (0.2-1.0); TOTAL PROTEIN 9.1 GM/DL (6.4-8.2)
[2018-02-05 07:43] LABS: ALKALINE PHOSPHATASE 77 U/L (45-117)
[2018-02-05] MEDS: DOCUSATE SODIUM 50 MG/SENNA 8.6 MG TAB PO SCH (09:44)
[2018-02-05] MEDS: BUDESONIDE-FORMOTEROL 160/4.5 MCG INHALER INH SCH ×2 (09:44→20:37)
[2018-02-05] MEDS: FLUCONAZOLE 100 MG TAB PO SCH (09:44)
[2018-02-05] MEDS: INSULIN DETEMIR 100 UNITS/ML VIAL SQ SCH ×2 (09:44→20:37)
[2018-02-05] MEDS: COLLAGENASE OINT 30 GM TUBE TOPICAL SCH (09:47)
--- NOTE | 2018-02-05 10:32 | HHI.PR ---
Subjective Remarks Patient seen today in follow-up for obstructive sleep apnea syndrome/obesity hypoventilation syndrome, cellulitis and sacrum ulcer. Patient seen and examined, sitting on side of bed comfortably no apparent distress. No change in medical condition. Did well with CPAP overnight, no oxygen needed. Eating well ambulating well. No abdominal pain, nausea or vomiting. Blood cultures negative. ID following for sacral wound. Culture pending. IV antibiotics continue. Vital signs stable. Objective Vitals Vital Signs Date Time Temp Pulse Resp B/P (MAP) Pulse Ox O2 Delivery O2 Flow Rate FiO2 02/05/18 04:45 92 21 02/05/18 04:00 82 93 02/05/18 01:05 93 21 02/05/18 00:51 93 Bi-Pap 02/05/18 00:00 99.8 92 20 122/72 (89) 02/04/18 20:18 96 21 02/04/18 20:00 99.2 98 20 114/76 (89) 96 02/04/18 19:00 96 Room Air 02/04/18 16:41 98.1 90 44 155/62 (93) 02/04/18 11:24 97.8 100 38 104/66 (79) I/O 02/04/18 02/04/18 02/04/18 02/05/18 02/05/18 02/05/18 07:00 15:00 23:00 07:00 15:00 23:00 Intake Total 460 ml 1054 ml Output Total 600 ml 3 ml 500 ml Balance -140 ml -3 ml 554 ml Intake Oral 460 ml 550 ml IV Total 504 ml Output Urine Total 600 ml 3 ml 500 ml # Bowel Movements 0 3 2 Result Diagram: 02/05/18 0556 02/05/18 0556 Imaging Last Impressions Soft Tissue Ultrasound 02/04/18 0000 Signed Impressions: Service Date/Time: Sunday, February 04, 2018 12:14 - CONCLUSION: Small superficial sacral abscess measuring 2.5 cm. Jaun Macdonald MD Chest X-Ray 01/28/18 0000 Signed Impressions: Service Date/Time: Sunday, January 28, 2018 17:03 - CONCLUSION: Stable abnormal chest appearance Thom Bailey MD Renal Ultrasound 01/24/18 0000 Signed Impressions: Service Date/Time: Wednesday, January 24, 2018 13:57 - CONCLUSION: Negative exam. Bladder is mainly decompressed. Victor Manuel Cervantes MD Objective Remarks She is obese with multiple skin lesions in various stages of healing. GENERAL: This is a well-nourished, well-developed patient, in no apparent distress. CARDIOVASCULAR: Regular rate and rhythm without murmurs, gallops, or rubs. RESPIRATORY: Clear to auscultation. Breath sounds equal bilaterally. No wheezes , rales, or rhonchi. GASTROINTESTINAL: Abdomen soft, non-tender, nondistended. Normal active bowel sounds MUSCULOSKELETAL: Extremities without clubbing, cyanosis, or edema. NEURO: Alert & Oriented x4 to person, place, time, situation. Moves all ext x4 A/P Assessment and Plan Stage IV sacrum ulcer with abscess - Soft tissue US ordered, showing superficial small abscess measuring 2.5 cm. - Orders per carton catcher. Praveena ordered. Wound care orders in place. - Specialty bed ordered. - Wound culture growing gram neg sheeba, suspect E. Coli? Await micro and sensitivity. ID placed on Zosyn and Diflucan. Continue to follow. - Blood cultures redrawn, no growth to date. Lactic WNL. WBC 16. Follow CBC. Severe sepsis upon presentation due to lower extremity cellulitis, cellulitis improving. - Patient no longer with septic criteria. - Patient did have low grade fever. Blood cultures negative initially. Lactic acid ordered. Mild leukocytosis. Improving. - Infectious disease is following the patient. Wound grew MRSA. Finished Doxycycline course 02/03/18. Acute renal failure - Possibly exacerbated by antibiotics. - Renal US negative. Likely prerenal etiology. - Continue monitor renal function. - Was improving, now 1.9. Hydration. Encourage fluids. Acute hypoxic respiratory failure, resolved. - Likely secondary from history of asthma, untreated obstructive sleep apnea, obesity hypoperfusion syndrome. O2 weaned off during day. - Patient using CPAP at night with O2 for respiratory support. Patient does not need oxygen at night. - Newscast Director with following the patient and indicates the patient cannot be discharged without a CPAP machine. Attempting to arrange sleep study in hospital. Dr. Hidalgo managing. - Case management consulted to arrange for CPAP upon discharge. - Continue duo nebs and Symbicort. - Steroids weaned off. - Home oxygen walk study indicates that patient does not require any oxygen. - Incentive spirometry Type 2 Diabetes Mellitus, chronic - Hemoglobin A1c 7.7 - Continue Levemir 20 units daily - Sliding scale insulin, cover as needed. Blood sugar well controlled. - Discontinue aspart at meals insulin sliding scale. DVT prevention: Subcutaneous heparin Plan is for patient to undergo a sleep study this weekend per Dr. Hidalgo. Akua Ho February 05, 2018 10:32
[2018-02-05] MEDS: SODIUM CHLOR 0.9% 1000 ML INJ 1,000 ML IV SCH (12:04)
[2018-02-05] MEDS: ACETAMINOPHEN 325 MG TAB PO PRN (16:25)
--- NOTE | 2018-02-05 18:33 | HHI.PR ---
Subjective Remarks ALERT NO SOB Objective Vital Signs Date Time Temp Pulse Resp B/P (MAP) Pulse Ox O2 Delivery O2 Flow Rate FiO2 02/05/18 17:25 23 02/05/18 16:00 97 25 115/79 (91) 96 02/05/18 08:00 98.8 84 28 118/69 (85) 92 02/05/18 07:00 Room Air 02/05/18 04:45 92 21 02/05/18 04:00 82 93 02/05/18 01:05 93 21 02/05/18 00:51 93 Bi-Pap 02/05/18 00:00 99.8 92 20 122/72 (89) 02/04/18 20:18 96 21 02/04/18 20:00 99.2 98 20 114/76 (89) 96 02/04/18 19:00 96 Room Air I/O 02/04/18 02/04/18 02/04/18 02/05/18 02/05/18 02/05/18 07:00 15:00 23:00 07:00 15:00 23:00 Intake Total 460 ml 1054 ml Output Total 600 ml 3 ml 500 ml Balance -140 ml -3 ml 554 ml Intake Oral 460 ml 550 ml IV Total 504 ml Output Urine Total 600 ml 3 ml 500 ml # Bowel Movements 0 3 2 Result Diagram: 02/05/18 0556 02/05/18 0556 Objective Remarks GENERAL: SKIN: Warm and dry. HEAD: Atraumatic. Normocephalic. EYES: Pupils equal and round. No scleral icterus. No injection or drainage. ENT: No nasal bleeding or discharge. Mucous membranes pink and moist. NECK: Trachea midline. No JVD. CARDIOVASCULAR: Regular rate and rhythm. RESPIRATORY: No accessory muscle use. Clear to auscultation. Breath sounds equal bilaterally. GASTROINTESTINAL: Abdomen soft, non-tender, nondistended. Hepatic and splenic margins not palpable. MUSCULOSKELETAL: Extremities without clubbing, cyanosis, or edema. No obvious deformities. NEUROLOGICAL: Awake and alert. No obvious cranial nerve deficits. Motor grossly within normal limits. Five out of 5 muscle strength in the arms and legs. Normal speech. PSYCHIATRIC: Appropriate mood and affect; insight and judgment normal. Assessment and Plan Assessment and Plan ASS SDB ? JAS PLAN NPSG WHEN POSSIBLE Rocky Hidalgo MD February 05, 2018 18:33
[2018-02-06] VITALS (9 sets, daily range): BP systolic 83–124; BP diastolic 57–92; PULSE 75–92; RESP 20–28; TEMP 97.9–98.7; O2SAT 93–98
[2018-02-06] MEDS: HEPARIN SODIUM - SQ 10,000 UNITS/ML VIAL SQ SCH ×3 (04:58→22:00)
[2018-02-06] MEDS: PIPERACIL-TAZO 3.375 GM PREMIX 50 ML IV SCH ×3 (04:58→21:00)
[2018-02-06] MEDS: INSULIN ASPART SUPPLEMENTAL SCALE SQ SCH ×2 (05:14→15:00)
[2018-02-06] MEDS: BUDESONIDE-FORMOTEROL 160/4.5 MCG INHALER INH SCH ×2 (09:00→21:00)
--- NOTE | 2018-02-06 09:19 | HHI.PR ---
Subjective Remarks Patient seen today in follow-up for obstructive sleep apnea syndrome/obesity hypoventilation syndrome, cellulitis and sacrum ulcer. Patient seen and examined, sleeping in bed. Awakens to voice. Patient denies any discomfort or pain. No changes in condition overnight. Patient will undergo sleep study tonight with Dr. Hidalgo. Tolerating p.o. intake, denies any abdominal pain, nausea or vomiting. Denies any fever or chills. Has been comfortable on room air. SINDHU worsening. Will add 1/2 L bolus and increase IVF. Monitor BMP in am. Objective Vitals Vital Signs Date Time Temp Pulse Resp B/P (MAP) Pulse Ox O2 Delivery O2 Flow Rate FiO2 02/06/18 04:25 93 21 02/06/18 04:00 88 22 98 02/06/18 02:15 95 21 02/06/18 00:00 97.9 92 20 99/64 (76) 95 02/05/18 23:50 97 21 02/05/18 20:30 96 21 02/05/18 20:00 98.7 94 22 125/62 (83) 97 02/05/18 19:00 95 Room Air 02/05/18 17:25 23 02/05/18 16:00 97 25 115/79 (91) 96 I/O 02/05/18 02/05/18 02/05/18 02/06/18 02/06/18 02/06/18 07:00 15:00 23:00 07:00 15:00 23:00 Intake Total 1054 ml 780 ml 650 ml Output Total 500 ml 350 ml Balance 554 ml 780 ml 300 ml Intake Oral 550 ml 780 ml 650 ml IV Total 504 ml Output Urine Total 500 ml 350 ml # Voids 4 # Bowel Movements 2 1 0 Result Diagram: 02/05/18 0556 02/05/18 0556 Imaging Last Impressions Soft Tissue Ultrasound 02/04/18 0000 Signed Impressions: Service Date/Time: Sunday, February 04, 2018 12:14 - CONCLUSION: Small superficial sacral abscess measuring 2.5 cm. Jaun Macdonald MD Chest X-Ray 01/28/18 0000 Signed Impressions: Service Date/Time: Sunday, January 28, 2018 17:03 - CONCLUSION: Stable abnormal chest appearance Thom Bailey MD Renal Ultrasound 01/24/18 0000 Signed Impressions: Service Date/Time: Wednesday, January 24, 2018 13:57 - CONCLUSION: Negative exam. Bladder is mainly decompressed. Victor Manuel Cervantes MD Objective Remarks She is obese with multiple skin lesions in various stages of healing. GENERAL: This is a well-nourished, well-developed patient, in no apparent distress. SKIN: Open wound to gluteal cleft, purulent drainage noted, surrounding erythema. Left gluteal superficial abscess mildly palpable, mild erythema roughly 1 cm, firm to touch. NECK: Supple. No swelling. CARDIOVASCULAR: Regular rate and rhythm without murmurs, gallops, or rubs. RESPIRATORY: Diminished breath sounds due to body habitus. Breath sounds equal bilaterally. No wheezes, rales, or rhonchi. GASTROINTESTINAL: Abdomen soft, non-tender, nondistended. Normal active bowel sounds MUSCULOSKELETAL: Extremities without clubbing, cyanosis. No edema to bilateral lower extremities. Markedly improvement in bilateral lower extremity erythema NEURO: Alert & Oriented x4 to person, place, time, situation. Moves all ext x4 A/P Assessment and Plan Stage IV sacrum ulcer with abscess - Soft tissue US ordered, showing superficial small abscess measuring 2.5 cm. - Orders per computer terminal operator. Praveena ordered. Wound care orders in place. - Specialty bed ordered. - Wound culture growing gram neg sheeba. ID placed on Zosyn and Diflucan. Continue to follow. - Blood cultures redrawn, no growth to date. Lactic WNL. WBC 10. Follow CBC. Severe sepsis upon presentation due to lower extremity cellulitis, cellulitis improving. - Patient no longer with septic criteria. - Patient did have low grade fever. Blood cultures negative initially. Lactic acid ordered. Mild leukocytosis. Improving. - Infectious disease is following the patient. Wound grew MRSA. Finished Doxycycline course 02/03/18. Acute renal failure, worsening. - Possibly exacerbated by antibiotics. - Renal US negative. Likely prerenal etiology. - Continue monitor renal function. - Was improving, now trending back up to 2.3. Will add 1/2 L NS bolus. Increase IVF. Ensure PO Hydration. Follow BMP in am. Acute hypoxic respiratory failure, resolved. - Likely secondary from history of asthma, untreated obstructive sleep apnea, obesity hypoperfusion syndrome. O2 weaned off during day. - Patient using CPAP at night with O2 for respiratory support. Patient does not need oxygen at night. - Manipulator Operator with following the patient and indicates the patient cannot be discharged without a CPAP machine. Attempting to arrange sleep study in hospital, to be performed tonight. Dr. Hidalgo managing. - Case management consulted to arrange for CPAP upon discharge. - Continue duo nebs and Symbicort. - Steroids weaned off. - Home oxygen walk study indicates that patient does not require any oxygen. - Incentive spirometry Type 2 Diabetes Mellitus, chronic - Hemoglobin A1c 7.7 - Continue Levemir 20 units daily - Sliding scale insulin, cover as needed. Blood sugar well controlled. - Discontinue aspart at meals insulin sliding scale. DVT prevention: Subcutaneous heparin Plan is for patient to undergo a sleep study this weekend per Dr. Hidalgo. Akua Ho February 06, 2018 09:19
[2018-02-06] MEDS: DOCUSATE SODIUM 50 MG/SENNA 8.6 MG TAB PO SCH (09:59)
[2018-02-06] MEDS: FLUCONAZOLE 100 MG TAB PO SCH (10:00)
[2018-02-06] MEDS: INSULIN DETEMIR 100 UNITS/ML VIAL SQ SCH ×2 (10:00→21:00)
[2018-02-06] MEDS: COLLAGENASE OINT 30 GM TUBE TOPICAL SCH (10:01)
[2018-02-06 10:57] LABS: BICARBONATE 30.3 MEQ/L (21.0-32.0); CALCIUM 9.7 MG/DL (8.5-10.1)
[2018-02-06 11:01] LABS: CREATININE 2.3 MG/DL (0.50-1.00)
[2018-02-06] MEDS: SODIUM CHLOR 0.9% 1000 ML INJ 1,000 ML IV SCH (11:53)
[2018-02-06] MEDS: ACETAMINOPHEN 325 MG TAB PO PRN (13:22)
[2018-02-06] MEDS ORDERED: SODIUM CHLORID 0.9% 500 ML INJ 500 ML IV ONE (16:00)
--- NOTE | 2018-02-06 21:40 | HHI.PR ---
Subjective Remarks ALERT NO SOB in isolation Objective Vital Signs Date Time Temp Pulse Resp B/P (MAP) Pulse Ox O2 Delivery O2 Flow Rate FiO2 02/06/18 20:10 98 21 02/06/18 20:00 98.7 82 22 83/57 (66) 98 02/06/18 19:00 94 Room Air 02/06/18 16:00 83 28 109/92 (98) 96 02/06/18 14:22 19 02/06/18 14:05 88 23 112/68 (83) 96 02/06/18 10:05 97.9 75 26 124/71 (88) 97 02/06/18 07:00 98 Room Air 02/06/18 04:25 93 21 02/06/18 04:00 88 22 98 02/06/18 02:15 95 21 02/06/18 00:00 97.9 92 20 99/64 (76) 95 02/05/18 23:50 97 21 I/O 02/05/18 02/05/18 02/05/18 02/06/18 02/06/18 02/06/18 07:00 15:00 23:00 07:00 15:00 23:00 Intake Total 1054 ml 780 ml 650 ml 1080 ml 340 ml Output Total 500 ml 350 ml 520 ml 200 ml Balance 554 ml 780 ml 300 ml 560 ml 140 ml Intake Oral 550 ml 780 ml 650 ml 1080 ml 340 ml IV Total 504 ml Output Urine Total 500 ml 350 ml 520 ml 200 ml # Voids 4 2 # Bowel Movements 2 1 0 1 Result Diagram: 02/05/18 0556 02/06/18 1042 Objective Remarks GENERAL: SKIN: Warm and dry. HEAD: Atraumatic. Normocephalic. EYES: Pupils equal and round. No scleral icterus. No injection or drainage. ENT: No nasal bleeding or discharge. Mucous membranes pink and moist. NECK: Trachea midline. No JVD. CARDIOVASCULAR: Regular rate and rhythm. RESPIRATORY: No accessory muscle use. Clear to auscultation. Breath sounds equal bilaterally. GASTROINTESTINAL: Abdomen soft, non-tender, nondistended. Hepatic and splenic margins not palpable. MUSCULOSKELETAL: Extremities without clubbing, cyanosis, or edema. No obvious deformities. NEUROLOGICAL: Awake and alert. No obvious cranial nerve deficits. Motor grossly within normal limits. Five out of 5 muscle strength in the arms and legs. Normal speech. PSYCHIATRIC: Appropriate mood and affect; insight and judgment normal. Assessment and Plan Assessment and Plan ASS SDB ? JAS PLAN NPSG , ambulatory tonight Rocky Hidalgo MD February 06, 2018 21:40
[2018-02-07] VITALS (8 sets, daily range): BP systolic 124–143; BP diastolic 49–75; PULSE 81–105; RESP 20–24; TEMP 97.2–99.8; O2SAT 94–99
[2018-02-07] MEDS: SODIUM CHLOR 0.9% 1000 ML INJ 1,000 ML IV SCH ×3 (00:16→17:37)
[2018-02-07 05:25] LABS: BICARBONATE 26.9 MEQ/L (21.0-32.0)
[2018-02-07 05:28] LABS: CREATININE 2.1 MG/DL (0.50-1.00)
[2018-02-07] MEDS: PIPERACIL-TAZO 3.375 GM PREMIX 50 ML IV SCH ×3 (05:45→20:30)
[2018-02-07] MEDS: HEPARIN SODIUM - SQ 10,000 UNITS/ML VIAL SQ SCH ×3 (05:45→20:27)
[2018-02-07] MEDS: INSULIN ASPART SUPPLEMENTAL SCALE SQ SCH ×2 (06:00→14:30)
--- NOTE | 2018-02-07 08:38 | HHI.PR ---
Subjective Remarks Patient seen today in follow-up for obstructive sleep apnea syndrome/obesity hypoventilation syndrome, cellulitis and sacrum ulcer. Patient seen and examined, patient underwent sleep study last night. Awaiting pulmonology input regarding sleep study results. Acute kidney injury worsening today despite IV hydration. Patient denies any dysuria. UA negative 2 days ago. Will consult nephrology, appreciate input and recommendations. Patient denies any acute complaints. No change overnight. Denies any shortness of breath. T-max 99.8. Vital signs stable. Breathing comfortably on room air. Objective Vitals Vital Signs Date Time Temp Pulse Resp B/P (MAP) Pulse Ox O2 Delivery O2 Flow Rate FiO2 02/07/18 04:00 86 22 94 02/07/18 00:00 99.8 88 24 131/72 (91) 95 02/06/18 20:10 98 21 02/06/18 20:00 98.7 82 22 83/57 (66) 98 02/06/18 19:00 94 Room Air 02/06/18 16:00 83 28 109/92 (98) 96 02/06/18 14:22 19 02/06/18 14:05 88 23 112/68 (83) 96 02/06/18 10:05 97.9 75 26 124/71 (88) 97 I/O 02/06/18 02/06/18 02/06/18 02/07/18 02/07/18 02/07/18 07:00 15:00 23:00 07:00 15:00 23:00 Intake Total 650 ml 1080 ml 700 ml 2540 ml Output Total 350 ml 520 ml 500 ml 2200 ml Balance 300 ml 560 ml 200 ml 340 ml Intake Oral 650 ml 1080 ml 700 ml 720 ml IV Total 1820 ml Output Urine Total 350 ml 520 ml 500 ml 2200 ml # Voids 2 # Bowel Movements 0 1 0 Result Diagram: 02/05/18 0556 02/07/18 0451 Imaging Last Impressions Soft Tissue Ultrasound 02/04/18 0000 Signed Impressions: Service Date/Time: Sunday, February 04, 2018 12:14 - CONCLUSION: Small superficial sacral abscess measuring 2.5 cm. Jaun Macdonald MD Chest X-Ray 01/28/18 0000 Signed Impressions: Service Date/Time: Sunday, January 28, 2018 17:03 - CONCLUSION: Stable abnormal chest appearance Thom Bailey MD Renal Ultrasound 01/24/18 0000 Signed Impressions: Service Date/Time: Wednesday, January 24, 2018 13:57 - CONCLUSION: Negative exam. Bladder is mainly decompressed. Victor Manuel Cervantes MD Objective Remarks She is obese with multiple skin lesions in various stages of healing. GENERAL: This is a well-nourished, well-developed patient, in no apparent distress. SKIN: Open wound to gluteal cleft, purulent drainage noted, surrounding erythema. Left gluteal superficial abscess mildly palpable, mild erythema roughly 1 cm, appears to be improving. NECK: Supple. No swelling. CARDIOVASCULAR: Regular rate and rhythm without murmurs, gallops, or rubs. RESPIRATORY: Diminished breath sounds due to body habitus. Breath sounds equal bilaterally. No wheezes, rales, or rhonchi. GASTROINTESTINAL: Abdomen soft, non-tender, nondistended. Normal active bowel sounds MUSCULOSKELETAL: Extremities without clubbing, cyanosis. No edema to bilateral lower extremities. Markedly improvement in bilateral lower extremity erythema NEURO: Alert & Oriented x4 to person, place, time, situation. Moves all ext x4 A/P Assessment and Plan Stage IV sacrum ulcer with abscess - Soft tissue US ordered, showing superficial small abscess measuring 2.5 cm. - Orders per canvas worker apprentice. Praveena ordered. Wound care orders in place. - Specialty bed ordered. - Wound culture growing gram neg sheeba. D placed on Zosyn and Diflucan. Continue to follow. - Blood cultures redrawn, no growth to date. Lactic acid WNL. WBC 16 now 10. Follow CBC. Severe sepsis upon presentation due to lower extremity cellulitis, cellulitis improving. - Patient no longer with septic criteria. Lower extremity without erythema. - Patient did have low grade fever. Blood cultures negative initially. Mild leukocytosis. Improved. - Infectious disease is following the patient. Wound grew MRSA. Finished Doxycycline course 02/03/18. Acute renal failure, worsening - Possibly exacerbated by antibiotics. - Renal US was initially negative. - Continue monitor renal function. - Was improving, now 2.1. Did not improve after IV hydration yesterday. - Consult placed to nephrology, input and recommendations appreciated. - Avoid nephrotoxins. Acute hypoxic respiratory failure, resolved. - Likely secondary from history of asthma, untreated obstructive sleep apnea, obesity hypoperfusion syndrome. O2 weaned off during day. - Patient using CPAP at night with O2 for respiratory support. Patient does not need oxygen at night. - Hospital Chaplain with following the patient and indicates the patient cannot be discharged without a CPAP machine. - Case management consulted to arrange for CPAP upon discharge. - Continue duo nebs and Symbicort. - Steroids weaned off. - Home oxygen walk study indicates that patient does not require any oxygen. - Incentive spirometry - Hospital Chaplain performed sleep study last evening 02/07/18, awaiting results. Type 2 Diabetes Mellitus, chronic - Hemoglobin A1c 7.7 - Continue Levemir 20 units daily - Sliding scale insulin, cover as needed. Blood sugar well controlled. - Discontinue aspart at meals insulin sliding scale. DVT prevention: Subcutaneous heparin. Akua Ho February 07, 2018 08:38
--- NOTE | 2018-02-07 11:02 | HHI.PR ---
Subjective Remarks ALERT NO SOB in isolation NPSG DONE Objective Vital Signs Date Time Temp Pulse Resp B/P (MAP) Pulse Ox O2 Delivery O2 Flow Rate FiO2 02/07/18 08:00 94 21 02/07/18 04:00 86 22 94 02/07/18 00:00 99.8 88 24 131/72 (91) 95 02/06/18 20:10 98 21 02/06/18 20:00 98.7 82 22 83/57 (66) 98 02/06/18 19:00 94 Room Air 02/06/18 16:00 83 28 109/92 (98) 96 02/06/18 14:22 19 02/06/18 14:05 88 23 112/68 (83) 96 I/O 02/06/18 02/06/18 02/06/18 02/07/18 02/07/18 02/07/18 07:00 15:00 23:00 07:00 15:00 23:00 Intake Total 650 ml 1080 ml 700 ml 2540 ml Output Total 350 ml 520 ml 500 ml 2200 ml Balance 300 ml 560 ml 200 ml 340 ml Intake Oral 650 ml 1080 ml 700 ml 720 ml IV Total 1820 ml Output Urine Total 350 ml 520 ml 500 ml 2200 ml # Voids 2 # Bowel Movements 0 1 0 Result Diagram: 02/05/18 0556 02/07/18 0451 Objective Remarks GENERAL: SKIN: Warm and dry. HEAD: Atraumatic. Normocephalic. EYES: Pupils equal and round. No scleral icterus. No injection or drainage. ENT: No nasal bleeding or discharge. Mucous membranes pink and moist. NECK: Trachea midline. No JVD. CARDIOVASCULAR: Regular rate and rhythm. RESPIRATORY: No accessory muscle use. Clear to auscultation. Breath sounds equal bilaterally. GASTROINTESTINAL: Abdomen soft, non-tender, nondistended. Hepatic and splenic margins not palpable. MUSCULOSKELETAL: Extremities without clubbing, cyanosis, or edema. No obvious deformities. NEUROLOGICAL: Awake and alert. No obvious cranial nerve deficits. Motor grossly within normal limits. Five out of 5 muscle strength in the arms and legs. Normal speech. PSYCHIATRIC: Appropriate mood and affect; insight and judgment normal. Assessment and Plan Assessment and Plan ASS SDB ? JAS PLAN CHECK NPSG , RESULTS Rocky Hidalgo MD February 07, 2018 11:02
[2018-02-07] MEDS: BUDESONIDE-FORMOTEROL 160/4.5 MCG INHALER INH SCH ×2 (11:22→20:28)
[2018-02-07] MEDS: COLLAGENASE OINT 30 GM TUBE TOPICAL SCH (11:22)
[2018-02-07] MEDS: FLUCONAZOLE 100 MG TAB PO SCH (11:24)
[2018-02-07] MEDS: INSULIN DETEMIR 100 UNITS/ML VIAL SQ SCH ×2 (11:24→20:28)
[2018-02-07] MEDS: DOCUSATE SODIUM 50 MG/SENNA 8.6 MG TAB PO SCH (11:24)
[2018-02-07] MEDS: ACETAMINOPHEN 325 MG TAB PO PRN (17:37)
--- NOTE | 2018-02-07 18:35 | PD.CONS ---
[facility] Service Nephrology Consult Requested By Reason for Consult Acute renal failure Primary Care Physician No Primary Care Physician History of Present Illness Patient is a 32-year-old obese female with history of asthma, sleep apnea was diagnosed with diabetes for the past 2 years came in with left foot infection and cellulitis, patient has issues with shortness of breath and diagnosed with sleep apnea while in the hospital, she is doing better and her creatinine went up baseline is around 1 went up to 2.3 and now declined to 2.1, she denies any dysuria or burning, she is passing urine she states she has never had kidney stones, there is no family history of kidney disease. Review of Systems Constitutional: COMPLAINS OF: Fatigue Respiratory: COMPLAINS OF: Shortness of breath Cardiovascular: COMPLAINS OF: Lower Extremity Edema Integumentary: COMPLAINS OF: Rash Past Family Social History Allergies: Coded Allergies: No Known Allergies (Verified Adverse Reaction, Unknown, 01/22/18) Past Medical History Diabetes Morbid obesity Asthma Sleep apnea History of bedbugs Reported Medications Reported Meds & Active Scripts Active Active Ordered Medications Current Medications Medications (Trade) Dose Ordered Sig/Toni Route Start Time Stop Time Status Last Admin (Tylenol) 650 mg Q4H PRN PO 01/22/18 11:00 02/07/18 17:37 (Heparin Inj) 5,000 units Q8HR SQ 01/22/18 14:00 02/07/18 14:42 (Duoneb Neb) 1 ampule Q2HR NEB PRN NEB 01/22/18 14:15 01/28/18 22:02 (Symbicort 160-4.5 Mcg Inh) 2 puff Q12HR INH 01/22/18 21:00 02/07/18 11:22 ([facility] [place] Nursing Information) Patient in critical care unit? Ass... [id number] .XX 01/24/18 20:00 01/24/18 20:00 (Levemir Inj) 20 units DAILY SQ 01/29/18 09:00 02/07/18 11:24 (Levemir Inj) 10 units HS SQ 01/28/18 21:00 02/06/18 21:00 (Zofran Odt) 4 mg Q6H PRN PO 01/29/18 14:30 (Robitussin Dm 200-20 Mg/10 ml Liq) 10 ml Q4H PRN PO 01/31/18 10:00 02/03/18 08:22 (Marisela-Colace) 1 tab DAILY PO 02/02/18 09:00 02/07/18 11:24 (NovoLOG SUPPLEMENTAL SCALE) 1 DAILY@0600,1500 SQ 02/02/18 06:00 02/05/18 14:38 (Santyl Oint) 1 applic DAILY TOPICAL 02/03/18 10:00 02/07/18 11:22 Sodium Chloride 1,000 ml @ 100 mls/hr Q10H IV 02/04/18 12:15 02/07/18 17:37 Piperacillin Sod/ Tazobactam Sod 50 ml @ 100 mls/hr Q8H IV 02/04/18 21:00 02/07/18 14:42 (Diflucan) 100 mg DAILY PO 02/04/18 19:30 02/07/18 11:24 Family History CAD Lung cancer Atrial fibrillation Diabetes Social History Patient denies smoking, she drinks only socially, denies any drug Physical Exam Vital Signs Vital Signs Date Time Temp Pulse Resp B/P (MAP) Pulse Ox O2 Delivery O2 Flow Rate FiO2 02/07/18 12:00 97.6 81 20 127/70 (89) 95 02/07/18 08:00 94 21 02/07/18 08:00 96 Room Air 02/07/18 08:00 97.2 85 21 125/65 (85) 94 02/07/18 04:00 86 22 94 02/07/18 00:00 99.8 88 24 131/72 (91) 95 02/06/18 20:10 98 21 02/06/18 20:00 98.7 82 22 83/57 (66) 98 02/06/18 19:00 94 Room Air Physical Exam GENERAL: Well-nourished, well-developed morbidly obese patient. SKIN: Warm and dry. HEAD: Normocephalic. EYES: No scleral icterus. No injection or drainage. NECK: Supple, trachea midline. No JVD or lymphadenopathy. CARDIOVASCULAR: Regular rate and rhythm without murmurs, gallops, or rubs. RESPIRATORY: Breath sounds diminished at bases GASTROINTESTINAL: Abdomen soft, non-tender, nondistended. EXTREMITIES: No cyanosis, or edema. Cellulitis which is getting better in the left leg old healing wounds NEUROLOGICAL: Awake, alert, and oriented x 3. Non-focal. Laboratory Laboratory Tests Test 02/07/18 04:51 Blood Urea Nitrogen 30 Creatinine 2.10 Random Glucose 132 Calcium Level 9.0 Sodium Level 139 Potassium Level 4.0 Chloride Level 106 Carbon Dioxide Level 26.9 Anion Gap 6 Estimat Glomerular Filtration Rate 28 Date/Time Source Procedure Growth Status 02/03/18 10:50 Blood Peripheral Aerobic Blood Culture - Preliminary NO GROWTH IN 4 DAYS Resulted 02/03/18 10:50 Blood Peripheral Anaerobic Blood Culture - Preliminary NO GROWTH IN 4 DAYS Resulted 01/22/18 09:35 Nasal Aspirate Influenza Types A,B Antigen (JEMIMA) - Final NEGATIVE FOR FLU A AND B ANTIGEN.... Complete 01/22/18 13:53 Urine Clean Catch Legionella Antigen - Final PRESUMPTIVE NEGATIVE FOR LEGIONELLA P... Complete 01/22/18 13:53 Urine Clean Catch Streptococcus pneumoniae Antigen (M - Final PRESUMPTIVE NEGATIVE FOR STREPTOCOCCU... Complete 02/03/18 09:00 Wound Buttock Gram Stain - Final Complete 02/03/18 09:00 Wound Buttock Wound Culture - Final Complete Result Diagram: 02/05/18 0556 02/07/18 0451 Imaging Last Impressions Soft Tissue Ultrasound 02/04/18 0000 Signed Impressions: Service Date/Time: Sunday, February 04, 2018 12:14 - CONCLUSION: Small superficial sacral abscess measuring 2.5 cm. Jaun Macdonald MD Chest X-Ray 01/28/18 0000 Signed Impressions: Service Date/Time: Sunday, January 28, 2018 17:03 - CONCLUSION: Stable abnormal chest appearance Thom Bailey MD Renal Ultrasound 01/24/18 0000 Signed Impressions: Service Date/Time: Wednesday, January 24, 2018 13:57 - CONCLUSION: Negative exam. Bladder is mainly decompressed. Victor Manuel Cervantes MD Assessment and Plan Problem List: (1) Acute renal failure ICD Codes: N17.9 - Acute kidney failure, unspecified Plan: Patient has been given daptomycin previously she received vancomycin She appears to be dehydrated and intravascular volume depleted Specific gravity in the urine is high, ketones were present Continue to hydrate she is on normal saline at 100 cc an hour with improvement in creatinine Give 1 dose of albumin 25 g IV 1 She can be discharged from nephrology point of view if creatinine downward trend continues (2) Diabetes ICD Codes: E11.9 - Type 2 diabetes mellitus without complications Plan: Patient is on insulin Levemir 15 units (3) Cellulitis ICD Codes: L03.90 - Cellulitis, unspecified Status: Acute Plan: Patient treated with vancomycin/daptomycin currently on Zosyn and Diflucan She was MRSA positive and beta Streptococcus in the wound (4) Obstructive sleep apnea ICD Codes: G47.33 - Obstructive sleep apnea (adult) (pediatric) Plan: Followed by pulmonary Problem Qualifiers (1) Cellulitis: Qualified Codes: L03.116 - Cellulitis of left lower limb Areli Portillo MD February 07, 2018 18:35
[2018-02-07] MEDS ORDERED: ALBUMIN 25% INJ 100 ML IV ONE (19:00)
[2018-02-08] VITALS: BP 105/56; PULSE 87; RESP 20; TEMP 99; O2SAT 97
[2018-02-08 04:00] VITALS: BP 142/73; PULSE 95; RESP 20; TEMP 99.1; O2SAT 97
[2018-02-08] MEDS: HEPARIN SODIUM - SQ 10,000 UNITS/ML VIAL SQ SCH ×3 (05:14→21:45)
[2018-02-08] MEDS: INSULIN ASPART SUPPLEMENTAL SCALE SQ SCH ×2 (05:14→14:26)
[2018-02-08] MEDS: SODIUM CHLOR 0.9% 1000 ML INJ 1,000 ML IV SCH ×2 (05:14→16:16)
[2018-02-08] MEDS: PIPERACIL-TAZO 3.375 GM PREMIX 50 ML IV SCH (05:14)
[2018-02-08 07:30] VITALS: O2SAT 97
[2018-02-08 08:00] VITALS: BP 130/85; PULSE 76; TEMP 98.7; O2SAT 96
[2018-02-08] MEDS: DOCUSATE SODIUM 50 MG/SENNA 8.6 MG TAB PO SCH (09:00)
[2018-02-08] MEDS: FLUCONAZOLE 100 MG TAB PO SCH (09:28)
[2018-02-08] MEDS: INSULIN DETEMIR 100 UNITS/ML VIAL SQ SCH ×2 (09:28→22:46)
[2018-02-08] MEDS: COLLAGENASE OINT 30 GM TUBE TOPICAL SCH (09:28)
[2018-02-08] MEDS: BUDESONIDE-FORMOTEROL 160/4.5 MCG INHALER INH SCH ×2 (09:28→21:46)
[2018-02-08] MEDS: ACETAMINOPHEN 325 MG TAB PO PRN ×3 (09:32→21:45)
--- NOTE | 2018-02-08 14:16 | HHI.DCPOC ---
Discharge Care Plan Diagnosis: (1) Sepsis (2) Cellulitis (3) Obstructive sleep apnea (4) Acute renal failure Goals to Promote Your Health * To prevent worsening of your condition and complications * To maintain your health at the optimal level Directions to Meet Your Goals Take your medications as prescribed Follow your dietary instruction Follow activity as directed Keep your appointments as scheduled Take your immunizations and boosters as scheduled If your symptoms worsen call your PCP, if no PCP go to Urgent Care Center or Emergency Room Smoking is Dangerous to Your Health. Avoid second hand smoke Call the 24-hour hour crisis hotline for domestic abuse at Chris Johnson February 08, 2018 14:16
[2018-02-08] MEDS: AMOXICILLIN/CLAVULANATE K 875 MG TAB PO SCH ×2 (14:20→21:45)
[2018-02-08] MEDS ORDERED: AMOX875T2 PO (14:21)
[2018-02-08] MEDS ORDERED: Budeson-Formot 160-4.5 Mcg Inh INH (14:21)
[2018-02-08] MEDS ORDERED: DIFL100T PO (14:21)
[2018-02-08] MEDS ORDERED: LEVEMIR SQ ×2 (14:29)
[2018-02-08] MEDS ORDERED: BIOM30MI (14:29)
[2018-02-08] MEDS ORDERED: GLUCTES12 (14:29)
[2018-02-08] MEDS ORDERED: INSU1MIS15 (14:29)
[2018-02-08] MEDS ORDERED: LANCETS1 MI1 (14:29)
[2018-02-08] MEDS ORDERED: GLUCKIT15 (14:29)
--- NOTE | 2018-02-08 14:42 | HHI.DS ---
Discharge Summary Admission Date January 22, 2018 at 10:59 Discharge Date: February 08, 2018 Admitting Diagnosis Sepsis, cellulitis, tachycardia, respiratory distress (1) Obstructive sleep apnea ICD Code: G47.33 - Obstructive sleep apnea (adult) (pediatric) (2) Obesity hypoventilation syndrome ICD Code: E66.2 - Morbid (severe) obesity with alveolar hypoventilation (3) Sepsis ICD Code: A41.9 - Sepsis, unspecified organism Status: Acute (4) Acute renal failure ICD Code: N17.9 - Acute kidney failure, unspecified (5) Cellulitis ICD Code: L03.90 - Cellulitis, unspecified Status: Acute (6) Diabetes ICD Code: E11.9 - Type 2 diabetes mellitus without complications Procedures None Brief History - From Admission The patient is a 32-year-old female with a past medical history of obstructive sleep apnea and asthma who is presenting to the hospital with shortness of breath and a rash. The patient says her breathing has gotten worse over the past couple of days. She does complain of some chest tightness and constriction with breathing. She says she has a history of childhood asthma. She also says that she has sleep apnea but is not being treated for it secondary to lack of insurance. She said she started to develop fevers on Wednesday. She says she has been dealing with bedbugs recently. She says that she has been scratching her body and has been developing blisters, with the biggest one being on her left foot. She says she has noticed white pus bubbles popping up on areas of her body. She has been tolerating a diet. Her family was at the bedside and her questions were asked. Discussed with nursing. CBC/BMP: 02/05/18 0556 02/07/18 0451 Significant Findings Laboratory Tests Test 02/06/18 10:42 02/07/18 04:51 Blood Urea Nitrogen 30 MG/DL (7-18) 30 MG/DL (7-18) Creatinine 2.30 MG/DL (0.50-1.00) 2.10 MG/DL (0.50-1.00) Random Glucose 166 MG/DL (74-106) 132 MG/DL (74-106) Estimat Glomerular Filtration Rate 25 ML/MIN (>89) 28 ML/MIN (>89) Imaging Last Impressions Soft Tissue Ultrasound 02/04/18 0000 Signed Impressions: Service Date/Time: Sunday, February 04, 2018 12:14 - CONCLUSION: Small superficial sacral abscess measuring 2.5 cm. Jaun Macdonald MD Chest X-Ray 01/28/18 0000 Signed Impressions: Service Date/Time: Sunday, January 28, 2018 17:03 - CONCLUSION: Stable abnormal chest appearance Thom Bailey MD Renal Ultrasound 01/24/18 0000 Signed Impressions: Service Date/Time: Wednesday, January 24, 2018 13:57 - CONCLUSION: Negative exam. Bladder is mainly decompressed. Victor Manuel Cervantes MD PE at Discharge GENERAL: Morbidly obese female in no acute distress. She is alert and orientated Hospital Course Is a rather unfortunate 32-year-old female with significant morbid obesity, history of obstructive sleep apnea who presented to the hospital because of shortness of breath and rash. Patient developed some rash over her entire body with multiple stages of healing and purulent pustules. States that it was very pruritic and she developed blisters prior to coming to the emergency department. Patient did have evaluation emergency department and she found to have a fever of up to 105.4, leukocytosis, cellulitis lower extremity, acute hypoxic respiratory failure patient was admitted to ICU on BiPAP, IV Solu-Medrol , nebulizer treatments, incentive spirometry, vancomycin, Zosyn. Tack Puller Machine was consulted for further recommendation to follow patient during her stay in the hospital. Patient tolerated treatment well and was successfully weaned off BiPAP. However it was suspected that she did have obstructive sleep apnea and would also consider obesity hypoventilation syndrome. Tack Puller Machine recommended CPAP to be obtained prior to discharge patient very high risk of sudden respiratory arrest. Tack Puller Machine recommended CPAP at 10 mm. Patient does not have the financial means in order to purchase a CPAP. Hence, Dr. Hidalgo , was consulted for inpatient sleep study and arranging of outpatient CPAP machine. Sleep study was performed inpatient and awaiting results from drilling field operator. In reference patient's cellulitic wound patient had culture performed which did have MRSA and group A beta strep. Patient was discontinued off IV antibiotics and started on doxycycline for total of 10 days which were completed. Patient also developed a area on her sacral/coccygeal area and had evaluation done by wound care nurse who recommended wound care. Culture was ascertained which did indicate heavy growth of greater than 3 mixed enteric gram -negative rods with no predominant organism. Infectious disease did follow the patient during her stay in the hospital. And recommended continuation of Augmentin and fluconazole for total of 10 days. During the patient's stay in the hospital she did have acute renal failure superimposed on chronic kidney disease. This has multiple etiologies patient with diabetes, nephrotoxic medications such as vancomycin, Zosyn, daptomycin use. Patient was put on IV fluids with improvement of her renal functions. Nephrology was consulted who also indicated that the patient continues to improve she is clear to discharge per nephrology. Patient also with history of diabetes and she had hemoglobin A1c of 7.7. Patient was started on Levemir at 20 units in the morning and 10 units at bedtime, she has sliding scale insulin but did not require any with the dosage of Levemir. Presently the patient is doing quite well. Has no medical complaints. Awaiting arrangement his CPAP for discharge. Unfortunately patient does not have any insurance. Case management consulted to arrange for patient care assistance, blue card, follow-up appointment with the [facility]. Mandatory referrals to nephrology and drilling field operator has been requested. Outpatient follow-up labs with results sent to nephrology to continue monitor her renal functions. Pt Condition on Discharge: Stable Discharge Disposition: Discharge Home Discharge Time: > 30 minutes Discharge Instructions DIET: Follow Instructions for: Diabetic Diet Activities you can perform: Regular-No Restrictions Follow up Referrals: Nephrology - [address] Portlilo PCP Follow-up - 1 Week Pulmonology - 1 Week with Rocky Hidalgo MD New Medications: Blood Glucose Monitoring W/Device (Glucocom Blood Glucose Mo W/Device) 1 Kit Kit KIT .XX DIRECTED for Blood Sugar Management, #1 Glucocom Test Strips (Glucocom Test Strips) 1 Criss Criss EA .XX DIRECTED for Blood Sugar Management, #1 Insulin Syringe/U-100/31G X 5/16" 1 ml (Insulin Syringe/U-100/31G X 5/16" 1 ml) 31 Gauge X 5/16" Mis EA .XX DIRECTED for Blood Sugar Management, #1 0 Refills Lancets (Lancets) 1 Mis Mis EA .XX DIRECTED for Blood Sugar Management, #1 0 Refills Parenteral Therapy Supplies (Sharpsafety Sharps Contai) 1 Mis Mis EA .XX DIRECTED, #1 0 Refills [Cpap] () UNIT HS for Shortness of Breath, #1 CPAP at 10 cm pressure Amoxicillin-Clavulanate (Amoxicillin-Clavulanate) 875-125 mg Tab 875 MG PO Q12HR for Infection for 10 Days, TAB not for use in CrCl <30 mL/minute Fluconazole (Diflucan) 100 Mg Tab 100 MG PO DAILY for Infection for 10 Days, #10 TAB Insulin Detemir Inj (Levemir Inj) 1,000 unit/ 10 ML Vial 20 UNITS SQ DAILY for Blood Sugar Management for 30 Days, INJECTION Do not mix with any other Insulin. Insulin Detemir Inj (Levemir Inj) 1,000 unit/ 10 ML Vial 10 UNITS SQ HS for Blood Sugar Management for 30 Days, INJECTION Do not mix with any other Insulin. [Budeson-Formot 160-4.5 Mcg Inh] () 60 PUFF AERO 2 PUFF INH Q12HR for Shortness of Breath for 30 Days, INHALER Chris Johnson February 08, 2018 14:42
--- NOTE | 2018-02-08 18:08 | HHI.PR ---
Subjective Remarks ALERT NO SOB in isolation NPSG DONE, JAS OF SEVERE DEGREE Objective Vital Signs Date Time Temp Pulse Resp B/P (MAP) Pulse Ox O2 Delivery O2 Flow Rate FiO2 02/08/18 08:00 98.7 76 130/85 (100) 96 02/08/18 08:00 Room Air 02/08/18 07:30 97 21 02/08/18 04:00 99.1 95 20 142/73 (96) 97 02/08/18 00:00 99.0 87 20 105/56 (72) 97 02/07/18 20:00 Room Air 02/07/18 20:00 99.0 105 22 143/75 (97) 99 02/07/18 19:19 95 21 I/O 02/07/18 02/07/18 02/07/18 02/08/18 02/08/18 02/08/18 07:00 15:00 23:00 07:00 15:00 23:00 Intake Total 2540 ml 770 ml 1225 ml Output Total 2200 ml 1000 ml 700 ml 900 ml Balance 340 ml -230 ml 525 ml -900 ml Intake Oral 720 ml 720 ml IV Total 1820 ml 50 ml 1225 ml Output Urine Total 2200 ml 1000 ml 700 ml 900 ml # Bowel Movements 0 0 Result Diagram: 02/05/18 0556 02/07/18 0451 Objective Remarks GENERAL: SKIN: Warm and dry. HEAD: Atraumatic. Normocephalic. EYES: Pupils equal and round. No scleral icterus. No injection or drainage. ENT: No nasal bleeding or discharge. Mucous membranes pink and moist. NECK: Trachea midline. No JVD. CARDIOVASCULAR: Regular rate and rhythm. RESPIRATORY: No accessory muscle use. Clear to auscultation. Breath sounds equal bilaterally. GASTROINTESTINAL: Abdomen soft, non-tender, nondistended. Hepatic and splenic margins not palpable. MUSCULOSKELETAL: Extremities without clubbing, cyanosis, or edema. No obvious deformities. NEUROLOGICAL: Awake and alert. No obvious cranial nerve deficits. Motor grossly within normal limits. Five out of 5 muscle strength in the arms and legs. Normal speech. PSYCHIATRIC: Appropriate mood and affect; insight and judgment normal. Assessment and Plan Assessment and Plan ASS SDB ? JAS PLAN NEEDS AUTO BIPAP LOOSE WT Rocky Hidalgo MD February 08, 2018 18:08
[2018-02-08 20:17] VITALS: O2SAT 96
[2018-02-08 21:57] VITALS: BP 126/79; PULSE 82; RESP 22; TEMP 98.8; O2SAT 98
[2018-02-09 00:10] VITALS: O2SAT 95
[2018-02-09] MEDS: SODIUM CHLOR 0.9% 1000 ML INJ 1,000 ML IV SCH (02:16)
[2018-02-09 04:25] VITALS: O2SAT 95
[2018-02-09 05:16] LABS: HEMATOCRIT 29.8 % (35.0-46.0); MEAN CELL VOLUME 85.3 FL (80.0-100.0); MEAN CORPUSCULAR HEMOGLOBIN 28.6 PG (27.0-34.0); MEAN CORPUSCULAR HGB CONC 33.6 % (32.0-36.0); MEAN PLATELET VOLUME 7.1 FL (7.0-11.0); PLATELET COUNT 275 TH/MM3 (150-450); RED BLOOD COUNT 3.49 MIL/MM3 (4.00-5.30); WHITE BLOOD COUNT 7.2 TH/MM3 (4.0-11.0)
[2018-02-09 05:33] LABS: CALCIUM 9.5 MG/DL (8.5-10.1)
[2018-02-09 05:34] LABS: BICARBONATE 24.2 MEQ/L (21.0-32.0); MAGNESIUM 2.5 MG/DL (1.5-2.5)
[2018-02-09 05:37] LABS: CREATININE 1.6 MG/DL (0.50-1.00)
[2018-02-09 05:38] LABS: BANDS 2 % (0-6); LYMPHOCYTES 28 % (9-44); METAMYELOCYTES 1 % (0-1); MONOCYTES 4 % (0-8); NEUTROPHIL # MANUAL DIFF 4.8 TH/MM3 (1.8-7.7); POLYS (SEG NEUTROPHILS) 64 % (16-70)
[2018-02-09] MEDS: INSULIN ASPART SUPPLEMENTAL SCALE SQ SCH ×2 (06:00→15:00)
[2018-02-09] MEDS: HEPARIN SODIUM - SQ 10,000 UNITS/ML VIAL SQ SCH ×3 (06:22→21:47)
[2018-02-09 07:15] VITALS: PULSE 89; RESP 21; TEMP 97.7; O2SAT 98
--- NOTE | 2018-02-09 08:38 | HHI.PR ---
Subjective Remarks 32-year-old female who is seen in follow-up today because of obstructive sleep apnea. Patient has undergone sleep study, recommendations have been made by glaze wiper. Patient was discharged once arrangements made in CPAP has been obtained. Awaiting CPAP to be obtained for the patient. Patient clinically stable. Vital signs are stable. Patient remains afebrile Objective Vitals Vital Signs Date Time Temp Pulse Resp B/P (MAP) Pulse Ox O2 Delivery O2 Flow Rate FiO2 02/09/18 04:25 95 21 02/09/18 00:10 95 21 02/08/18 22:46 16 02/08/18 21:57 98.8 82 22 126/79 (95) 98 02/08/18 20:17 96 21 02/08/18 19:13 97 Room Air I/O 02/08/18 02/08/18 02/08/18 02/09/18 02/09/18 02/09/18 06:59 14:59 22:59 06:59 14:59 22:59 Intake Total 1225 ml Output Total 700 ml 900 ml 1400 ml Balance 525 ml -900 ml -1400 ml IV Total 1225 ml Output Urine Total 700 ml 900 ml 1400 ml # Bowel Movements 3 Result Diagram: 02/09/18 0507 02/09/18 0507 Objective Remarks GENERAL: Morbidly obese female in no acute distress. She is alert and orientated Procedures None Urinary Catheter: No Vascular Central Line Catheter: No A/P Assessment and Plan Acute hypoxic respiratory failure, resolved -Likely secondary from history of asthma, untreated obstructive sleep apnea, obesity hypoperfusion syndrome -Patient has been weaned off oxygen at this time. -Patient using CPAP at night for respiratory support -Sonogram Technician with following the patient and indicates the patient cannot be discharged without a CPAP machine -Case management consulted to arrange for CPAP upon discharge -Dr. Hidalgo had performed sleep study and indicates patient will require CPAP volume to be set at 8-20 range to use when sleeping -continue duo nebs -Continue Symbicort -Home oxygen walk study indicates that patient does not require any oxygen -Incentive spirometry Stage IV sacral ulcer with abscess -Soft tissue ultrasound was performed which showed small abscess measuring 2.5 cm -Wound care nurse evaluated the patient and recommended Santyl, wound care orders in place -Specially bed was ordered -Blood cultures show greater than 3 enteric gram-negative rods with no predominant growth -Infectious disease recommended Augmentin, fluconazole orally for 10 days Severe sepsis due to cellulitis, resolved -Patient no longer with septic criteria. Patient remains afebrile -Infectious disease is following the patient, recommending discontinuation of IV antibiotics and continuation of doxycycline -Completed doxycycline 100 mg twice daily for 5 days Diabetes -Hemoglobin A1c 7.7 -Levemir 20 units daily -Sliding scale insulin patient has not required any sliding scale insulin since 02/05/18 Acute renal failure, improving -Possibly exacerbated by antibiotics. -Renal US negative. FENa indicates prerenal etiology. Improving. -Nephrology consulted who indicated that patient was on vancomycin, daptomycin, and appeared to be dehydrated and intravascular volume depleted -Status post albumin -Nephrology recommended stable for discharge if renal functions improved DVT prevention -Subcutaneous heparin Discharge Planning Patient with active discharge, awaiting arrangement of CPAP Chris Johnson February 09, 2018 08:38
[2018-02-09 09:00] VITALS: BP 126/78
[2018-02-09] MEDS: DOCUSATE SODIUM 50 MG/SENNA 8.6 MG TAB PO SCH (10:02)
[2018-02-09] MEDS: AMOXICILLIN/CLAVULANATE K 875 MG TAB PO SCH ×2 (10:02→21:47)
[2018-02-09] MEDS: FLUCONAZOLE 100 MG TAB PO SCH (10:02)
[2018-02-09] MEDS: BUDESONIDE-FORMOTEROL 160/4.5 MCG INHALER INH SCH ×2 (10:03→21:46)
[2018-02-09] MEDS: INSULIN DETEMIR 100 UNITS/ML VIAL SQ SCH ×2 (10:03→21:47)
[2018-02-09] MEDS: COLLAGENASE OINT 30 GM TUBE TOPICAL SCH (10:04)
--- NOTE | 2018-02-09 17:40 | HHI.PR ---
Subjective Remarks Wants to go home. Sleep test is +ve for JAS. Needs Auto BiPAP at home. Skin cellulitis is better. Has a sacral ulcer. Will get a Sleep test. this week Objective Vital Signs Date Time Temp Pulse Resp B/P (MAP) Pulse Ox O2 Delivery O2 Flow Rate FiO2 02/09/18 07:15 97.7 89 21 98 02/09/18 07:00 Room Air 02/09/18 04:25 95 21 02/09/18 00:10 95 21 02/08/18 22:46 16 02/08/18 21:57 98.8 82 22 126/79 (95) 98 02/08/18 20:17 96 21 02/08/18 19:13 97 Room Air I/O 02/08/18 02/08/18 02/08/18 02/09/18 02/09/18 02/09/18 07:00 15:00 23:00 07:00 15:00 23:00 Intake Total 1225 ml Output Total 700 ml 900 ml 1400 ml Balance 525 ml -900 ml -1400 ml IV Total 1225 ml Output Urine Total 700 ml 900 ml 1400 ml # Bowel Movements 3 Result Diagram: 02/09/18 0507 02/09/18 0507 Objective Remarks GENERAL: This is a obese, young white female who is awake . HEENT: Head is normocephalic. Pupils are reactive. Sclerae clear. Throat is clear . Nasal mucosa is clear. NECK: Supple. No bruits or thyroid enlargement, no lymphadenopathy. CHEST: Decreased excursions. wheezes in the upper lung rachel. HEART: The heart sounds are regular S1 and S2 with no murmur. ABDOMEN: Soft, obese without masses. No organomegaly. EXTREMITIES: Ulcerated areas over the skin with cellulitis in the left leg healing. Has No edema. The abdomen is obese and nontender with no organomegaly. NEUROLOGIC: The patient is alert . Reflexes 1+ with no gross motor deficits. Assessment and Plan Assessment and Plan ASSESSMENT AND PLAN: 1. Sepsis with cellulitis and skin ulcerations of the lower extremities.resolved 2. Obstructive sleep apnea syndrome. 3. Asthma with bronchitis. 4. Hyperglycemia. 5. Extreme obesity Plan: 1. Arrange Auto BiPAP at home 2. ventolin HFA , 2 puffs tid prn 3. BiPAP at HS 4. Ok to go home with BiPAP 5. Symbicort 160/4.5 mcg , 2 puffs BID Palma Duran MD February 09, 2018 17:40
[2018-02-09 20:00] VITALS: BP 163/59; PULSE 90; RESP 22; TEMP 97.6; O2SAT 96
[2018-02-09 20:49] VITALS: O2SAT 96
[2018-02-09] MEDS: ACETAMINOPHEN 325 MG TAB PO PRN (22:18)
[2018-02-10 03:30] VITALS: O2SAT 96
[2018-02-10] MEDS: INSULIN ASPART SUPPLEMENTAL SCALE SQ SCH ×2 (06:00→15:00)
[2018-02-10] MEDS: HEPARIN SODIUM - SQ 10,000 UNITS/ML VIAL SQ SCH ×3 (06:08→20:37)
[2018-02-10 07:15] VITALS: PULSE 83; RESP 26; O2SAT 97
[2018-02-10] MEDS: FLUCONAZOLE 100 MG TAB PO SCH (09:25)
[2018-02-10] MEDS: INSULIN DETEMIR 100 UNITS/ML VIAL SQ SCH ×2 (09:25→20:36)
[2018-02-10] MEDS: AMOXICILLIN/CLAVULANATE K 875 MG TAB PO SCH ×2 (09:25→20:36)
[2018-02-10] MEDS: DOCUSATE SODIUM 50 MG/SENNA 8.6 MG TAB PO SCH (09:25)
[2018-02-10] MEDS: COLLAGENASE OINT 30 GM TUBE TOPICAL SCH ×2 (09:26→23:36)
[2018-02-10] MEDS: BUDESONIDE-FORMOTEROL 160/4.5 MCG INHALER INH SCH ×2 (09:27→20:36)
--- NOTE | 2018-02-10 16:32 | HHI.PR ---
Subjective Remarks Patient seen and examined today for follow-up on obstructive sleep apnea. Awaiting CPAP machine to be authorized by [facility]. Patient resting comfortably. Denies any new complaints. No change in clinical status. Vital signs are stable. Patient remains afebrile. Objective Vitals Vital Signs Date Time Temp Pulse Resp B/P (MAP) Pulse Ox O2 Delivery O2 Flow Rate FiO2 02/10/18 07:15 83 26 97 02/10/18 03:30 96 21 02/09/18 23:18 22 02/09/18 20:49 96 21 02/09/18 20:00 96 Room Air 02/09/18 20:00 97.6 90 22 163/59 (93) 96 I/O 02/09/18 02/09/18 02/09/18 02/10/18 02/10/18 02/10/18 06:59 14:59 22:59 06:59 14:59 22:59 Intake Total 700 ml 600 ml Output Total 1400 ml 800 ml Balance -1400 ml 700 ml -200 ml Intake Oral 700 ml 600 ml Output Urine Total 1400 ml 800 ml # Voids 5 4 # Bowel Movements 3 1 1 Result Diagram: 02/09/18 0507 02/09/18 0507 Objective Remarks GENERAL: Morbidly obese female in no acute distress. She is alert and orientated Procedures None Urinary Catheter: No Vascular Central Line Catheter: No A/P Assessment and Plan Acute hypoxic respiratory failure, resolved -Likely secondary from history of asthma, untreated obstructive sleep apnea, obesity hypoperfusion syndrome -Patient has been weaned off oxygen at this time. -Patient using CPAP at night for respiratory support -Liquor Grinder Mill Operator with following the patient and indicates the patient cannot be discharged without a CPAP machine -Case management consulted to arrange for CPAP upon discharge -Dr. Hidalgo had performed sleep study and indicates patient will require CPAP volume to be set at 8-20 range to use when sleeping -continue duo nebs -Continue Symbicort -Home oxygen walk study indicates that patient does not require any oxygen -Incentive spirometry Stage IV sacral ulcer with abscess -Soft tissue ultrasound was performed which showed small abscess measuring 2.5 cm -Wound care nurse evaluated the patient and recommended Santyl, wound care orders in place -Specially bed was ordered -Blood cultures show greater than 3 enteric gram-negative rods with no predominant growth -Infectious disease recommended Augmentin, fluconazole orally for 10 days Severe sepsis due to cellulitis, resolved -Patient no longer with septic criteria. Patient remains afebrile -Infectious disease is following the patient, recommending discontinuation of IV antibiotics and continuation of doxycycline -Completed doxycycline 100 mg twice daily for 5 days Diabetes -Hemoglobin A1c 7.7 -Levemir 20 units daily -Sliding scale insulin patient has not required any sliding scale insulin since 02/05/18 Acute renal failure, improving -Possibly exacerbated by antibiotics. -Renal US negative. FENa indicates prerenal etiology. Improving. -Nephrology consulted who indicated that patient was on vancomycin, daptomycin, and appeared to be dehydrated and intravascular volume depleted -Status post albumin -Nephrology recommended stable for discharge if renal functions improved DVT prevention -Subcutaneous heparin Discharge Planning Patient with active discharge, case management indicated that they were received authorization from [facility] to order a CPAP machine. Awaiting delivery for discharge Chris Johnson February 10, 2018 16:32
[2018-02-10 21:00] VITALS: BP 169/75; PULSE 88; RESP 20; TEMP 98.8; O2SAT 95
[2018-02-11] MEDS: INSULIN ASPART SUPPLEMENTAL SCALE SQ SCH ×2 (06:00→15:30)
[2018-02-11] MEDS: HEPARIN SODIUM - SQ 10,000 UNITS/ML VIAL SQ SCH ×2 (06:15→14:00)
[2018-02-11 06:50] VITALS: O2SAT 98
[2018-02-11 08:00] VITALS: BP 127/70; PULSE 90; RESP 20; TEMP 97.8; O2SAT 96
[2018-02-11] MEDS: FLUCONAZOLE 100 MG TAB PO SCH (10:44)
[2018-02-11] MEDS: INSULIN DETEMIR 100 UNITS/ML VIAL SQ SCH (10:44)
[2018-02-11] MEDS: AMOXICILLIN/CLAVULANATE K 875 MG TAB PO SCH (10:44)
[2018-02-11] MEDS: DOCUSATE SODIUM 50 MG/SENNA 8.6 MG TAB PO SCH (10:45)
[2018-02-11] MEDS: BUDESONIDE-FORMOTEROL 160/4.5 MCG INHALER INH SCH (10:45)
--- NOTE | 2018-02-11 11:42 | PD.WCN.NOT ---
Wound Consult Description: Follow up of sacral wound Communicated with: [facility], Devang CABRERA Recommendation: 1. Encourage patient to shower/sponge bathe daily with a antibacterial soap. 2. Encourage patient to reposition every 2 hours for comfort and offloading. 3. Cleanse sacral wound with normal saline pat dry, Skin prep periwound 4. lightly pack wound base with Maxorb AG with thin layer of Santyl applied to Maxorb making contact with entire wound base.Leaving tail exposed to cover partial thickness periwound. 5. Cover with dry gauze secure with boarder gauze or paper tape.Sign and Date dressing 6. Change dressing daily x10 days or as needed for dislodgement/exudate management. 7. Patient will require home health care till week of February 21. Then patient needs to follow up with out patient wound center. Additional Information: Patient was seen today by news writer and [facility] for follow up of stage 4 pressure injury to sacrum.Patient is alert and oriented x4 with no complaints of acute distress or discomfort.Patient sitting up in bed upon news writer arrival.Airrepy surface ordered but was not switched out reason unknown.Patient is independent with ADL s though she does state she don't clean herself the best.Patient states she is out of anti itch medication and has been scratching legs and arms again.Refill for hydrocortisone cream needed.Patient was able to independently reposition herself out of bed for news writer to visualize sacral/ buttocks area. Sacral wound cleansed with normal saline pat dry.Project Facilitator was able to visualize entire wound base with flash light previous noted stage 4 pressure injury is now a healing stage 4 pressure injury.Wound measures 3.2cm x 3.0cm x 2.6cm previous tunnel noted at 4-5 O'clock is now filled completely in with beefy red granular tissue.Wound base is 75% moist red non granular tissue with a 25% beefy red island of granular tissue noted ~ between 3-5 O'clock.Wound edges are well defined and sloped to wound base.Moderate serosanguineous drainage noted with out odor.Marisela wound has Partial thickness moisture related injury to distal pressure injury measurements obtain for partial thickness wound 2.4cm x 1.8cm x <0.1cm wound base is 100% pink moist non granular tissue with thin layer of biofilm noted.Wound cleansed with normal saline pat dry Santyl applied 2mm thick layer to Maxorb ll and gently pack into wound base leaving tail exposed to cover partial thickness wound.Maxorb was covered and secured with boarder gauze and news writer signed and dated dressing.Patient tolerated wound care well.Patient verbalized understanding of wound care and healing process.Patient agreed for home health services and then getting establish with out patient wound center.Wound care package left with patient 10 day supplies provided for wound care. Dixie Galvan [facility] February 11, 2018 11:42
--- NOTE | 2018-02-11 11:49 | HHI.FF ---
Face to Face Verification Diagnosis: (1) Sacral pressure ulcer (2) Cellulitis Home Health Nursing Order: Wound care and dressing changes Instructions: 1. Encourage patient to shower/sponge bathe daily with a antibacterial soap. 2. Encourage patient to reposition every 2 hours for comfort and offloading. 3. Cleanse sacral wound with normal saline pat dry, Skin prep periwound 4. lightly pack wound base with Maxorb AG with thin layer of Santyl applied to Maxorb making contact with entire wound base.Leaving tail exposed to cover partial thickness periwound. 5. Cover with dry gauze secure with boarder gauze or paper tape.Sign and Date dressing 6. Change dressing daily x10 days or as needed for dislodgement/exudate management. 7. Patient will require home health care till week of February 21. Then patient needs to follow up with out patient wound center. I have seen patient uMnira Ferrell on 02/11/18. My clinical findings support the need for the requested home health care services because: Infection w/ risk of complications I certify that my clinical findings support that this patient is homebound because: Unable to use public transportation Chris Johnson February 11, 2018 11:49
[2018-02-11] MEDS ORDERED: LIDO3CRE TOPICAL (11:52)
[2018-02-11] MEDS ORDERED: COLL30T TOPICAL (11:52)
--- NOTE | 2018-02-11 11:58 | HHI.PR ---
Subjective Remarks Patient seen and examined today for follow-up on obstructive sleep apnea, we are only waiting on CPAP to be delivered. Vital signs are stable. Patient remains afebrile. Patient denies any new complaints Objective Vitals Vital Signs Date Time Temp Pulse Resp B/P (MAP) Pulse Ox O2 Delivery O2 Flow Rate FiO2 02/10/18 21:00 98.8 88 20 169/75 (106) 95 02/10/18 20:00 95 Room Air I/O 02/10/18 02/10/18 02/10/18 02/11/18 02/11/18 02/11/18 07:00 15:00 23:00 07:00 15:00 23:00 Intake Total 600 ml 580 ml 460 ml 240 ml Output Total 800 ml 750 ml 420 ml Balance -200 ml -170 ml 40 ml 240 ml Intake Oral 600 ml 580 ml 460 ml 240 ml Output Urine Total 800 ml 750 ml 420 ml # Voids 4 2 # Bowel Movements 1 1 0 Result Diagram: 02/09/18 0507 02/09/18 0507 Objective Remarks GENERAL: Morbidly obese female in no acute distress. She is alert and orientated Procedures None Urinary Catheter: No Vascular Central Line Catheter: No A/P Assessment and Plan Acute hypoxic respiratory failure, resolved -Likely secondary from history of asthma, untreated obstructive sleep apnea, obesity hypoperfusion syndrome -Patient has been weaned off oxygen at this time. -Patient using CPAP at night for respiratory support -Veneer Puller with following the patient and indicates the patient cannot be discharged without a CPAP machine -Case management consulted to arrange for CPAP upon discharge -Dr. Hidalgo had performed sleep study and indicates patient will require CPAP volume to be set at 8-20 range to use when sleeping -continue duo nebs -Continue Symbicort -Home oxygen walk study indicates that patient does not require any oxygen -Incentive spirometry Stage IV sacral ulcer with abscess -Soft tissue ultrasound was performed which showed small abscess measuring 2.5 cm -Wound care nurse evaluated the patient and recommended Santyl, wound care orders in place -Specially bed was ordered -Blood cultures show greater than 3 enteric gram-negative rods with no predominant growth -Infectious disease recommended Augmentin, fluconazole orally for 10 days -Case management consulted to arrange home health care for wound care for at least 1 week. Then patient has an appointment set up to follow with Dr. Toure at [place] [facility] Severe sepsis due to cellulitis, resolved -Patient no longer with septic criteria. Patient remains afebrile -Infectious disease is following the patient, recommending discontinuation of IV antibiotics and continuation of doxycycline -Completed doxycycline 100 mg twice daily for 5 days Diabetes -Hemoglobin A1c 7.7 -Levemir 20 units daily -Sliding scale insulin patient has not required any sliding scale insulin since 02/05/18 Acute renal failure, improving -Possibly exacerbated by antibiotics. -Renal US negative. FENa indicates prerenal etiology. Improving. -Nephrology consulted who indicated that patient was on vancomycin, daptomycin, and appeared to be dehydrated and intravascular volume depleted -Status post albumin -Nephrology recommended stable for discharge if renal functions improved DVT prevention -Subcutaneous heparin Discharge Planning Patient with active discharge, case management indicated that they were received authorization from [place] to order a CPAP machine. Awaiting delivery for discharge Chris Johnson February 11, 2018 11:58
[2018-02-11] MEDS: ACETAMINOPHEN 325 MG TAB PO PRN ×2 (15:49→16:54)
--- NOTE | 2018-02-11 19:30 | HHI.PR ---
Subjective Remarks Will go home. and has a CPAP mask at home now. Sleep test is +ve for JAS. Skin cellulitis is better. Has a sacral ulcer. Objective Vital Signs Date Time Temp Pulse Resp B/P (MAP) Pulse Ox O2 Delivery O2 Flow Rate FiO2 02/11/18 08:00 97.8 90 20 127/70 (89) 96 02/11/18 08:00 95 Room Air 02/11/18 06:50 98 21 02/10/18 21:00 98.8 88 20 169/75 (106) 95 02/10/18 20:00 95 Room Air I/O 02/10/18 02/10/18 02/10/18 02/11/18 02/11/18 02/11/18 07:00 15:00 23:00 07:00 15:00 23:00 Intake Total 600 ml 580 ml 460 ml 240 ml Output Total 800 ml 750 ml 420 ml Balance -200 ml -170 ml 40 ml 240 ml Intake Oral 600 ml 580 ml 460 ml 240 ml Output Urine Total 800 ml 750 ml 420 ml # Voids 4 2 # Bowel Movements 1 1 0 Result Diagram: 02/09/18 0507 02/09/18 0507 Objective Remarks GENERAL: This is a obese, young white female who is in no distress HEENT: Head is normocephalic. Pupils are reactive. Sclerae clear. Throat is clear . Nasal mucosa is clear. NECK: Supple. No bruits or thyroid enlargement, no lymphadenopathy. CHEST: Decreased excursions. Clear lungs HEART: The heart sounds are regular S1 and S2 with no murmur. ABDOMEN: Soft, obese without masses. No organomegaly. EXTREMITIES: Has mild edema. NEUROLOGIC: The patient is alert . Reflexes 1+ with no gross motor deficits. Assessment and Plan Assessment and Plan ASSESSMENT AND PLAN: 1. Sepsis with cellulitis and skin ulcerations of the lower extremities.resolved 2. Obstructive sleep apnea syndrome. 3. Asthma with bronchitis. 4. Hyperglycemia. 5. Extreme obesity Plan: 1. Home today with CPAP 10 CM 2. ventolin HFA , 2 puffs tid prn 3. Weight loss discussed 4. Labs in 2 weeks 5. Symbicort 160/4.5 mcg , 2 puffs BID 6. Will see As OP in 2 weeks Palma Duran MD February 11, 2018 19:30
== END 2018-02-11 19:53 | disposition home or self-care (01) | DRG 871 ==
LOC: PHED 08:49 → PHEDA 10:59 → PHICU 12:45
PROVIDERS: ADMIT Hospitalist; ATTEND Hospitalist
PROC: 5A09557 Assistance with Respiratory Ventilation, Greater than 96 Consecutive Hours, Continuous Positive Airway Pressure (ICD-10-PCS; principal; 2018-01-22)
DX: A41.02 Sepsis due to Methicillin resistant Staphylococcus aureus (principal); J96.01 Acute respiratory failure with hypoxia; N17.9 Acute kidney failure, unspecified; L89.154 Pressure ulcer of sacral region, stage 4; E11.22 Type 2 diabetes mellitus with diabetic chronic kidney disease; E11.65 Type 2 diabetes mellitus with hyperglycemia; B85.2 Pediculosis, unspecified; J45.909 Unspecified asthma, uncomplicated; Z68.44 Body mass index [BMI] 60.0-69.9, adult; L03.116 Cellulitis of left lower limb; E66.2 Morbid (severe) obesity with alveolar hypoventilation; L97.829 Non-pressure chronic ulcer of other part of left lower leg with unspecified severity; L02.212 Cutaneous abscess of back [any part, except buttock and flank]; A40.0 Sepsis due to streptococcus, group A; R65.20 Severe sepsis without septic shock; E07.9 Disorder of thyroid, unspecified; G47.33 Obstructive sleep apnea (adult) (pediatric); R21 Rash and other nonspecific skin eruption; K58.0 Irritable bowel syndrome with diarrhea; N18.9 Chronic kidney disease, unspecified; W57.XXXA Bitten or stung by nonvenomous insect and other nonvenomous arthropods, initial encounter; Z83.3 Family history of diabetes mellitus
CPT/HCPCS: 36600; 71045; 76775; 76937; 76999; 80048; 80053; 80202; 81001; 82550; 82565; 82570; 82805; 82948; 83036; 83605; 83735; 84300; 84443; 85007; 85025; 85027; 86403; 87040; 87070; 87077; 87086; 87186; 87205; 87449; 87493; 87641; 87804; 93005; 94002; 94003; 94150; 94618; 94640; 94664; 94667; 94668; 96365; 96375; J0610; J0690; J0878; J1644; J1815; J2060; J2270; J2543; J2920; J3370; J7030; J7040; J7050; J7512; P9047